=== PATIENT | male | born 1940 | race Caucasian/White ===

== ENCOUNTER → 2020-05-20 | Outpatient (BNVA) | payer MEDICARE, OTHER, SELFPAY | PROVIDERS: PCP Internal Medicine; Visit Provider Surgery | DX: Z48.815 Encounter for surgical aftercare following surgery on the digestive system (principal); Z87.19 Personal history of other diseases of the digestive system | CPT/HCPCS: 99212 ==

== ENCOUNTER 2020-07-09 13:59 | Outpatient (REF) | payer MEDICARE, OTHER, SELFPAY | END 2020-07-09 14:00 | disposition home or self-care (01) | LOC: HO.LAB 13:59 | PROVIDERS: Visit Provider Internal Medicine | DX: Z20.828 Contact with and (suspected) exposure to other viral communicable diseases (principal) | CPT/HCPCS: C9803; U0003 ==

== ENCOUNTER → 2021-03-09 08:22 | Outpatient (REF) | payer MEDICARE, OTHER, SELFPAY ==
--- NOTE | 2021-03-09 08:30 | CA_ITS ---
Transthoracic Echocardiogram Patient (Last, First, Middle): Jayant Griffiths R Gender: Male Date of : 1940 Age: 81 Procedure Date: 03/09/2021 Procedure Type: Transthoracic Echocardiogram Location: OP Height: 167.64 cm Weight: 79.38 kg BSA: 1.89 m2 Heart Rate: bpm BP: 128 / 80 mmHg Supervisor Feed House: Referring MD: Ayaan Romero MD Symptoms: I35.0 AVS, I10 HTN I44.7 LBBB Study Quality: Fair ECG Rhythm: Sinus Conclusions: - The left ventricular systolic function is normal. The visually estimated ejection fraction is between 60-65%. - There is mild to moderate aortic valve stenosis. Findings Left Ventricle Normal left ventricular cavity size. There is mildly increased left ventricular wall thickness. The left ventricular systolic function is normal. The visually estimated ejection fraction is between 60-65%. There is no evidence of regional wall motion abnormalities. E/E prime ratio is >15, consistent with elevated filling pressures. Evidence suggests grade I (mild) diastolic dysfunction. Right Ventricle Mildly increased right ventricular cavity size. There is normal right ventricular systolic function. Atria Both atria are normal in size. Aortic Valve There is moderate calcification of the aortic valve. There is mild to moderate aortic valve stenosis. The peak aortic velocity is 2.19 m/s with a calculated peak gradient of 19 mmHg. The mean gradient is 11 mmHg. The aortic valve area is 1.27 cm2. There is no aortic valve regurgitation. Mitral Valve The mitral valve appears normal. There is trace mitral valve regurgitation. There is no mitral valve stenosis. Pulmonic Valve The pulmonic valve was not well visualized. Tricuspid Valve Normal tricuspid valve structure. There is trace tricuspid valve regurgitation. The pulmonary artery systolic pressure is normal. Great Vessels The asc aorta is normal in size. Venous The inferior vena cava is normal in size and collapses greater than 50% with inspiration. Pericardium/Pleural There is no evidence of pericardial effusion. Prior Study Comparison No significant change compared to prior study dated: 05/15/2019. Measurements 2D Linear Measurements IVSd: 1.32 0.6-0.9/0.6-1.0 cm LVIDd: 3.50 3.9-5.3/4.2-5.9 cm LVIDd Index: 1.85 2.4-3.2/2.2-3.1 cm/m2 LVIDs: 2.12 2.0-3.6 cm LVPWd: 1.30 0.7-1.1 cm Ao Root: 3.60 2.1-3.5 cm LA Diam: 3.10 2.7-3.8/3.0-4.0 cm LAIDs Index: 1.64 1.5-2.3 cm/m2 LV Mass: 193.80 67-162/88-224 g LV Mass Index: 102.54 43-95/49-115 g/m2 LVOT Diam: 2.10 3.0+(-)1.3 cm 2D Systolic Function EF 4C: 63.00 >55% EF 2C: 60.60 >55% EF BiP: 59.30 >55% Mitral Valve MV Pk E: 0.74 MV PK A: 1.23 MV Decel Time: 214.00 E/A: 0.60 E'Lateral: 6.64 E'Medial: 3.70 E/E' Med: 20.00 E/E' Lat: 11.20 PHT: 63.00 MVA PHT: 3.49 Decel [place]: 3.47 Aortic Valve AoV Pk Brendon: 2.19 AoV Mn Brendon: 1.60 AoV VTI: 0.44 AoV Pk Grad: 19.00 Aov Mn Grad: 11.00 ANDREW Cont.VTI: 1.27 LVOT LVOT Pk Brendon: 0.90 LVOT Mn Brendon: 0.57 LVOT VTI: 0.16 LVOT Pk Grad: 3.00 LVOT Mn Grad: 2.00 LVOT Diam: 2.10 LVOT Area: 3.46 Diastolic Function MV Pk E: 0.74 MV Pk A: 1.23 E/A: 0.60 E'Medial: 3.70 E/E' Med: 20.00 E' Laterial: 6.64 E/E' Lat: 11.20 Right Ventricle TAPSE (mm): 25.00 TVS' Brendon: 14.00 Tricuspid Valve TR Pk Brendon: 2.36 TR Pk Grad: 22.00 RA Press: 3.00 RVSP: 25.00 Great Vessels Aorta Ao Root-2D: 3.60 2.0-3.7 cm Ao Asc: 3.20 2.1-3.4 cm Pulmonary Valve PV Pk Brendon: 1.21 Peak PV Grad: 6.00 Updated in Other Vendor System with Status of Final Mxa Carrasquillo MD electronically signed on 03/10/2021 12:03:10 PM with status of Final
== END ==
LOC: HO.CARD 08:22
PROVIDERS: PCP Internal Medicine; Visit Provider Internal Medicine Cardiovascular Disease
DX: I35.0 Nonrheumatic aortic (valve) stenosis (principal); I10 Essential (primary) hypertension; I44.7 Left bundle-branch block, unspecified
CPT/HCPCS: 93306

== ENCOUNTER → 2021-04-27 13:28 | Outpatient (BNVA) | payer MEDICARE, OTHER, SELFPAY | PROVIDERS: PCP Internal Medicine; Referring Provider Internal Medicine; Visit Provider Internal Medicine Cardiovascular Disease | DX: I35.0 Nonrheumatic aortic (valve) stenosis (principal); I44.7 Left bundle-branch block, unspecified | CPT/HCPCS: 93005; 99212 ==

== ENCOUNTER 2021-05-14 06:56 | Outpatient (REF) | payer MEDICARE, OTHER, SELFPAY ==
[2021-05-14 11:26] LABS: MANUAL DIFF FLAG NO
[2021-05-14 11:34] LABS: Basophils Absolute Auto 0.1 X10*3/uL (0.0-0.2); Basophils Percent Auto 0.9 % (0-2); Eosinophils Absolute Auto 0.4 X10*3/uL (0.0-0.4); Eosinophils Percent Auto 3.7 % (0-4); Hematocrit 47.6 % (42-52); Hemoglobin 15.7 g/dl (14.0-18.0); Imm Gran Abs Auto 0.04 X10*3/uL (0.00-0.03); Imm Gran Pct Auto 0.4 % (0.0-0.4); Lymphocytes Absolute Auto 1.5 X10*3/uL (1.2-4.9); Lymphocytes Percent Auto 15.5 % (20-40); Mean Corpuscular Hemoglobin 30.7 pg (27.0-33.0); Mean Corpuscular Volume 93.2 fL (80-98); Mean Platelet Volume 10.6 fL (9.4-12.4); Monocytes Absolute Auto 0.8 X10*3/uL (0.1-1.2); Monocytes Percent Auto 8.2 % (2-11); Neutrophils Absolute Auto 6.7 X10*3/uL (2.0-8.3); Neutrophils Percent Auto 71.3 % (45-73); Platelet Count 197 X10*3/uL (160-400); Red Blood Count 5.11 X10*6/uL (4.60-5.80); Red Cell Distribution Width 14.6 % (11.0-16.0); White Blood Count 9.4 X10*3/uL (4.8-10.8)
[2021-05-14 12:02] LABS: Alanine Aminotransferase 18 U/L (0-40); Albumin Level 4.3 g/dL (3.5-5.0); Alkaline Phosphatase 57 U/L (39-117); Anion Gap 14 (12-20); Aspartate Amino Transferase 16 U/L (5-37); Blood Urea Nitrogen 15 mg/dL (9-16); Calcium 9.2 mg/dL (8.4-10.2); Carbon Dioxide 26 mmol/L (22-29); Chloride 105 mmol/L (96-108); Cholesterol 146 mg/dL; Estimated Glomerular Filt Rate > 60; Glucose Random 108 mg/dL (60-115); HDL Cholesterol 55 mg/dL; LDL Cholesterol Calculated 78 mg/dl; Potassium 4.5 mmol/L (3.3-5.1); Sodium 140 mmol/L (135-145); Total Protein 7.2 g/dL (6.5-8.0); Triglycerides 67 mg/dL
[2021-05-14 12:07] LABS: Free T4 (Free Thyroxine) 1.05 ng/dL (0.71-1.85); Thyroid Stimulating Hormone 1.49 uIU/mL (0.32-4.0)
[2021-05-14 12:25] LABS: Folate 7.4 ng/mL (> or = 4.0); Vitamin B12 764 pg/mL (200-900)
== END 2021-05-14 06:57 | disposition home or self-care (01) ==
LOC: HO.HMGCLDS 06:56
PROVIDERS: PCP Internal Medicine; Visit Provider Internal Medicine
DX: E78.00 Pure hypercholesterolemia, unspecified (principal); I10 Essential (primary) hypertension
CPT/HCPCS: 36415; 80053; 80061; 82607; 82746; 84439; 84443; 85025

== ENCOUNTER 2021-12-02 10:26 | Outpatient (REF) | payer MEDICARE, OTHER, SELFPAY ==
--- NOTE | ~2021-12-02 | US_ITS ---
EXAMINATION: US RETROPERITONEAL LIMITED (RENAL ONLY) CLINICAL INFORMATION: Calculus of kidney. COMPARISON: CT abdomen and pelvis 05/22/2019. X-ray KUB 11/11/2016 and 06/11/2013. TECHNIQUE: Real-time imaging of the kidneys. FINDINGS: RIGHT KIDNEY: 11.8 x 5.2 x 5.6 cm (SAG x AP x TRV). The kidney is normal in size, contour, and echogenicity. Renal cortical thickness is normal. There are echogenic small calculi in the midpole measuring 0.24 x 0.34 x 0.25 cm and lower pole measuring 0.25 x 0.26 x 0.31 cm. There is no hydronephrosis. There is an anechoic cyst in the midpole measuring 1.4 x 1.4 x 1.5 cm. LEFT KIDNEY: 11.1 x 5.0 x 4.6 cm (SAG x AP x TRV). The kidney is normal in size, contour, and echogenicity. Renal cortical thickness is normal. There are echogenic stones in the lower pole measuring 0.43 x 0.31 x 0.30 cm and 0.25 x 0.21 x 0.31 cm. No focal parenchymal lesions or hydronephrosis. US/US renal BI IMPRESSION: Bilateral nonobstructive echogenic small calculi. There is no hydronephrosis. Small midpole cyst right kidney.
== END 2021-12-02 10:27 | disposition home or self-care (01) ==
LOC: HO.HMGCX 10:26
PROVIDERS: Visit Provider Internal Medicine
DX: N20.0 Calculus of kidney (principal)
CPT/HCPCS: 76775

== ENCOUNTER 2022-02-24 08:46 | Outpatient (REF) | payer MEDICARE, OTHER, SELFPAY ==
--- NOTE | ~2022-02-24 | XR_ITS ---
EXAMINATION: XR SHOULDER, RIGHT CLINICAL INFORMATION: M25.519 - Pain shoulder COMPARISON: None TECHNIQUE: Right shoulder is imaged in 4 views. FINDINGS: No fracture, dislocation, or destructive process. The acromioclavicular alignment is normal. There are no visible rotator cuff calcifications. There are mild degenerative changes acromioclavicular joint. The glenohumeral joint is unremarkable. XR/XR shoulder RT min 2V IMPRESSION: -Mild degenerative changes acromioclavicular joint. -No visible rotator cuff calcifications.
== END 2022-02-24 08:47 | disposition home or self-care (01) ==
LOC: HO.HOSX 08:46
PROVIDERS: Visit Provider Physician Assistant
DX: M75.101 Unspecified rotator cuff tear or rupture of right shoulder, not specified as traumatic (principal)
CPT/HCPCS: 20610; 73030; 99202; J1040

== ENCOUNTER → 2022-04-19 08:18 | Outpatient (REF) | payer MEDICARE, OTHER, SELFPAY ==
--- NOTE | 2022-04-19 08:21 | CA_ITS ---
Transthoracic Echocardiogram Patient (Last, First, Middle): Jayant Griffiths R Gender: Male Date of : 1940 Age: 82 Procedure Date: 04/19/2022 Procedure Type: Transthoracic Echocardiogram Location: OP Height: 167.64 cm Weight: 81.65 kg BSA: 1.91 m2 Heart Rate: 69 bpm BP: 120 / 80 mmHg Progress Developer: ALAM Referring MD: Ayaan Romero MD Dianeticist: Ayaan Romero MD Symptoms: I35.0 - Nonrheumatic aortic (valve) stenosis Study Quality: Adequate w contrast ECG Rhythm: Sinus Conclusions: - 1. Normal LV systolic function with mild LVH with impaired relaxation filling pattern 2. Pogp-rd-hrjwmaza aortic stenosis 3. No gross pericardial effusion Findings Procedure Information Contrast agent, definity, is being given per protocol without apparent complications. Left Ventricle Normal left ventricular size and systolic function. There is mildly increased left ventricular wall thickness. The visually estimated ejection fraction is between 60-65%. Spectral Doppler is indicative of an impaired relaxation filling pattern. E/E prime ratio is between 8 and 15 consistent with indeterminate filling pressures. Right Ventricle Normal right ventricular cavity size and systolic function. Atria Both atria are normal in size. There is no evidence of interatrial shunt. Aortic Valve There is moderate calcification of the aortic valve. There is mild thickening of the aortic valve. There is mild to moderate aortic valve stenosis. The peak aortic gradient is 30 mmHg.The mean gradient is 15 mmHg. The aortic valve area is 1.54 cm2. There is no aortic valve regurgitation. Mitral Valve There is mild anterior and posterior mitral leaflet thickening. There is mild mitral annular calcification. There is trace mitral valve regurgitation. There is no mitral valve stenosis. Pulmonic Valve The pulmonic valve is likely normal. Tricuspid Valve Normal tricuspid valve structure. Tricuspid regurgitation envelope is inadequate for calculation of right ventricular systolic pressure. Normal right atrial pressure. Great Vessels All visible segments of the aorta are normal in size. The pulmonary artery was not well visualized. Venous The inferior vena cava is normal in size and collapses greater than 50% with inspiration. Pericardium/Pleural There is no evidence of pericardial effusion. Prior Study Comparison No significant change compared to prior study dated: 03/09/2021. Measurements 2D Linear Measurements IVSd: 1.51 0.6-0.9/0.6-1.0 cm LVIDd: 4.44 3.9-5.3/4.2-5.9 cm LVIDd Index: 2.32 2.4-3.2/2.2-3.1 cm/m2 LVIDs: 2.79 2.0-3.6 cm LVPWd: 0.87 0.7-1.1 cm LA Diam: 3.50 2.7-3.8/3.0-4.0 cm LAIDs Index: 1.83 1.5-2.3 cm/m2 LV Mass: 238.58 67-162/88-224 g LV Mass Index: 124.91 43-95/49-115 g/m2 LVOT Diam: 2.10 3.0+(-)1.3 cm 2D Systolic Function EF 4C: 61.00 >55% EF 2C: 65.40 >55% EF BiP: 64.30 >55% Mitral Valve MV Pk E: 0.78 MV PK A: 1.26 MV Decel Time: 283.00 E/A: 0.60 E'Lateral: 5.55 E'Medial: 6.20 E/E' Med: 12.60 E/E' Lat: 14.10 PHT: 83.00 MVA PHT: 2.65 Decel [place]: 2.75 Aortic Valve AoV Pk Brendon: 2.73 AoV Mn Brendon: 1.78 AoV VTI: 0.50 AoV Pk Grad: 30.00 Aov Mn Grad: 15.00 ANDREW Cont.VTI: 1.54 LVOT LVOT Pk Brendon: 1.19 LVOT Mn Brendon: 0.84 LVOT VTI: 0.22 LVOT Pk Grad: 6.00 LVOT Mn Grad: 3.00 LVOT Diam: 2.10 LVOT Area: 3.46 Diastolic Function MV Pk E: 0.78 MV Pk A: 1.26 E/A: 0.60 E'Medial: 6.20 E/E' Med: 12.60 E' Laterial: 5.55 E/E' Lat: 14.10 Right Ventricle TAPSE (mm): 20.40 TVS' Brendon: 13.20 Tricuspid Valve RA Press: 3.00 Great Vessels Aorta Sinus of Valsalva: 3.50 2.0-3.5 cm Ao Asc: 3.30 2.1-3.4 cm Pulmonary Valve PV Pk Brendon: 1.16 Peak PV Grad: 5.00 Updated in Other Vendor System with Status of Final Ayaan Romero MD electronically signed on 04/19/2022 11:53:57 AM with status of Final
== END ==
LOC: HO.CARD 08:18
PROVIDERS: PCP Internal Medicine; Visit Provider Internal Medicine Cardiovascular Disease
DX: I35.0 Nonrheumatic aortic (valve) stenosis (principal)
CPT/HCPCS: 93306; Q9957

== ENCOUNTER → 2022-04-28 08:23 | Outpatient (BNVA) | payer MEDICARE, OTHER, SELFPAY | PROVIDERS: PCP Internal Medicine; Referring Provider Internal Medicine; Visit Provider Internal Medicine Cardiovascular Disease | DX: I35.0 Nonrheumatic aortic (valve) stenosis (principal); I44.7 Left bundle-branch block, unspecified | CPT/HCPCS: 93005; 99212 ==

== ENCOUNTER 2022-05-14 07:39 | Outpatient (REF) | payer MEDICARE, OTHER, SELFPAY ==
[2022-05-14 11:09] LABS: MANUAL DIFF FLAG NO
[2022-05-14 11:15] LABS: Basophils Absolute Auto 0.1 X10*3/uL (0.0-0.2); Eosinophils Absolute Auto 0.3 X10*3/uL (0.0-0.4); Eosinophils Percent Auto 3.7 % (0-4); Hematocrit 47.2 % (42.0-52.0); Hemoglobin 16.2 g/dl (14.0-18.0); Imm Gran Abs Auto 0.04 X10*3/uL (0.00-0.03); Imm Gran Pct Auto 0.4 % (0.0-0.4); Lymphocytes Absolute Auto 1.4 X10*3/uL (1.2-4.9); Lymphocytes Percent Auto 15.3 % (20-40); Mean Corpuscular HGB Conc 34.3 g/dl (31.0-36.0); Mean Corpuscular Hemoglobin 32.1 pg (27.0-33.0); Mean Corpuscular Volume 93.5 fL (80.0-98.0); Mean Platelet Volume 10.9 fL (9.4-12.4); Monocytes Absolute Auto 0.8 X10*3/uL (0.1-1.2); Monocytes Percent Auto 8.4 % (2-11); Neutrophils Absolute Auto 6.6 x10*3/uL (2.0-8.3); Neutrophils Percent Auto 71.2 % (45-73); Platelet Count 194 X10*3/uL (160-400); Red Blood Count 5.05 X10*6/uL (4.60-5.80); Red Cell Distribution Width 13.5 % (11.0-16.0); White Blood Count 9.2 X10*3/uL (4.8-10.8)
[2022-05-14 11:34] LABS: Estimated Average Glucose 120 mg/dL; Hemoglobin A1c % 5.8 %
[2022-05-14 11:52] LABS: Alanine Aminotransferase 19 U/L (0-40); Albumin Level 4.4 g/dL (3.5-5.0); Alkaline Phosphatase 53 U/L (39-117); Anion Gap 18 (12-20); Aspartate Amino Transferase 21 U/L (5-37); Bilirubin Total 0.8 mg/dL (0.0-1.0); Blood Urea Nitrogen 22 mg/dL (9-16); Calcium 9.2 mg/dL (8.4-10.2); Carbon Dioxide 21 mmol/L (22-29); Chloride 105 mmol/L (96-108); Cholesterol 152 mg/dL; Estimated Glomerular Filt Rate > 60; Free T4 (Free Thyroxine) 1.12 ng/dL (0.71-1.85); Glucose Random 114 mg/dL (60-115); HDL Cholesterol 51 mg/dL; LDL Cholesterol Calculated 87 mg/dl; Potassium 4.5 mmol/L (3.3-5.1); Sodium 139 mmol/L (135-145); Thyroid Stimulating Hormone 1.14 uIU/mL (0.32-4.0); Total Protein 7.5 g/dL (6.5-8.0); Triglycerides 74 mg/dL
[2022-05-14 12:19] LABS: Folate 12.6 ng/mL (> or = 4.0); Vitamin B12 632 pg/mL (200-900)
== END 2022-05-14 07:40 | disposition home or self-care (01) ==
LOC: HO.HMGCLDS 07:39
PROVIDERS: PCP Internal Medicine; Visit Provider Internal Medicine
DX: I10 Essential (primary) hypertension (principal); E78.00 Pure hypercholesterolemia, unspecified; R73.02 Impaired glucose tolerance (oral)
CPT/HCPCS: 36415; 80053; 80061; 82607; 82746; 83036; 84439; 84443; 85025

== ENCOUNTER 2023-01-11 06:41 | Outpatient (REF) | payer MEDICARE, OTHER, SELFPAY ==
[2023-01-11 11:11] LABS: MANUAL DIFF FLAG NO
[2023-01-11 11:22] LABS: Basophils Absolute Auto 0.1 X10*3/uL (0.0-0.2); Eosinophils Absolute Auto 0.4 X10*3/uL (0.0-0.4); Hematocrit 47.4 % (42.0-52.0); Hemoglobin 16.3 g/dl (14.0-18.0); Imm Gran Abs Auto 0.12 X10*3/uL (0.00-0.03); Imm Gran Pct Auto 1.3 % (0.0-0.4); Lymphocytes Absolute Auto 1.4 X10*3/uL (1.2-4.9); Mean Corpuscular HGB Conc 34.4 g/dl (31.0-36.0); Mean Corpuscular Hemoglobin 32.5 pg (27.0-33.0); Mean Corpuscular Volume 94.6 fL (80.0-98.0); Mean Platelet Volume 10.8 fL (9.4-12.4); Monocytes Absolute Auto 0.9 X10*3/uL (0.1-1.2); Monocytes Percent Auto 9.4 % (2-11); Neutrophils Absolute Auto 6.5 x10*3/uL (2.0-8.3); Neutrophils Percent Auto 69.3 % (45-73); Platelet Count 184 X10*3/uL (160-400); Red Blood Count 5.01 X10*6/uL (4.60-5.80); Red Cell Distribution Width 14.3 % (11.0-16.0); White Blood Count 9.3 X10*3/uL (4.8-10.8)
[2023-01-11 11:46] LABS: Estimated Average Glucose 114 mg/dL; Hemoglobin A1c % 5.6 %
[2023-01-11 11:57] LABS: Alanine Aminotransferase 22 U/L (0-40); Albumin Level 4.3 g/dL (3.5-5.0); Alkaline Phosphatase 51 U/L (39-117); Anion Gap 14 (12-20); Aspartate Amino Transferase 17 U/L (5-37); Bilirubin Total 1.2 mg/dL (0.0-1.0); Blood Urea Nitrogen 21 mg/dL (9-16); Calcium 9.4 mg/dL (8.4-10.2); Carbon Dioxide 23 mmol/L (22-29); Chloride 107 mmol/L (96-108); Cholesterol 163 mg/dL; Estimated Glomerular Filt Rate > 60; Glucose Random 109 mg/dL (60-115); HDL Cholesterol 53 mg/dL; LDL Cholesterol Calculated 93 mg/dl; Potassium 4.1 mmol/L (3.3-5.1); Sodium 140 mmol/L (135-145); Total Protein 7.2 g/dL (6.5-8.0); Triglycerides 88 mg/dL
[2023-01-11 12:13] LABS: Folate 8.8 ng/mL (> or = 4.0); Free T4 (Free Thyroxine) 0.99 ng/dL (0.71-1.85); Thyroid Stimulating Hormone 1.65 uIU/mL (0.32-4.0); Vitamin B12 1070 pg/mL (200-900)
== END 2023-01-11 06:42 | disposition home or self-care (01) ==
LOC: HO.HMGCLDS 06:41
PROVIDERS: PCP Internal Medicine; Visit Provider Internal Medicine
DX: I10 Essential (primary) hypertension (principal); E78.00 Pure hypercholesterolemia, unspecified; R73.02 Impaired glucose tolerance (oral)
CPT/HCPCS: 36415; 80053; 80061; 82607; 82746; 83036; 84439; 84443; 85025

== ENCOUNTER → 2023-04-24 08:01 | Outpatient (REF) | payer MEDICARE, OTHER, SELFPAY ==
--- NOTE | 2023-04-24 08:04 | CA_ITS ---
Transthoracic Echocardiogram Patient (Last, First, Middle): Jayant Griffiths R Gender: Male Date of : 1940 Age: 83 Procedure Date: 04/24/2023 Procedure Type: Transthoracic Echocardiogram Location: OP Height: 167.64 cm Weight: 81.65 kg BSA: 1.91 m2 Heart Rate: bpm BP: 130 / 65 mmHg Informatics Physician: Referring MD: Ayaan Romero MD Symptoms: I35.0 - Nonrheumatic aortic (valve) stenosis Study Quality: Fair ECG Rhythm: Sinus Conclusions: - The left ventricular systolic function is normal. The calculated ejection fraction is 61% by biplane method. - There is mild to moderate aortic valve stenosis. Findings Left Ventricle Normal left ventricular cavity size. The left ventricular systolic function is normal. The calculated ejection fraction is 61% by biplane method. There is no evidence of regional wall motion abnormalities. Evidence suggests grade I (mild) diastolic dysfunction. There is mild septal asymmetric hypertrophy. Right Ventricle Mildly increased right ventricular cavity size. There is normal right ventricular systolic function. Atria The left atrium is likely dilated. The right atrium is normal in size. Aortic Valve The aortic valve was not well visualized. There is moderate calcification of the aortic valve. There is mild to moderate aortic valve stenosis. The peak aortic velocity is 2.81 m/s with a calculated peak gradient of 32 mmHg. The mean gradient is 17 mmHg. The aortic valve area is 1.47 cm2. There is no aortic valve regurgitation. Mitral Valve There is mild mitral annular calcification. There is no mitral valve regurgitation. There is no mitral valve stenosis. Pulmonic Valve The pulmonic valve is likely normal. Tricuspid Valve Normal tricuspid valve structure. There is trace tricuspid valve regurgitation. There is no evidence of pulmonary hypertension. Great Vessels The asc aorta is normal in size. Venous The inferior vena cava is normal in size and collapses greater than 50% with inspiration. Pericardium/Pleural There is no evidence of pericardial effusion. Prior Study Comparison No significant change compared to prior study dated: 04/19/2022. Measurements 2D Linear Measurements IVSd: 1.15 0.6-0.9/0.6-1.0 cm LVIDd: 4.73 3.9-5.3/4.2-5.9 cm LVIDd Index: 2.48 2.4-3.2/2.2-3.1 cm/m2 LVIDs: 3.35 2.0-3.6 cm LVPWd: 0.99 0.7-1.1 cm Ao Root: 3.50 2.1-3.5 cm LA Diam: 3.10 2.7-3.8/3.0-4.0 cm LAIDs Index: 1.62 1.5-2.3 cm/m2 LV Mass: 226.71 67-162/88-224 g LV Mass Index: 118.70 43-95/49-115 g/m2 LVOT Diam: 2.10 3.0+(-)1.3 cm 2D Systolic Function EF 4C: 62.10 >55% EF 2C: 63.30 >55% EF BiP: 60.60 >55% Mitral Valve MV Pk E: 0.63 MV PK A: 1.04 MV Decel Time: 190.00 E/A: 0.60 E'Lateral: 6.31 E'Medial: 5.00 E/E' Med: 12.50 E/E' Lat: 9.90 PHT: 56.00 MVA PHT: 3.93 Decel [place]: 3.29 Aortic Valve AoV Pk Brendon: 2.81 AoV Mn Brendon: 1.90 AoV VTI: 0.63 AoV Pk Grad: 32.00 Aov Mn Grad: 17.00 ANDREW Cont.VTI: 1.47 LVOT LVOT Pk Brendon: 1.08 LVOT Mn Brendon: 0.71 LVOT VTI: 0.27 LVOT Pk Grad: 5.00 LVOT Mn Grad: 3.00 LVOT Diam: 2.10 LVOT Area: 3.46 Diastolic Function MV Pk E: 0.63 MV Pk A: 1.04 E/A: 0.60 E'Medial: 5.00 E/E' Med: 12.50 E' Laterial: 6.31 E/E' Lat: 9.90 Right Ventricle TAPSE (mm): 29.00 TVS' Brendon: 15.00 Tricuspid Valve TR Pk Brendon: 2.04 TR Pk Grad: 17.00 RA Press: 3.00 RVSP: 20.00 Great Vessels Aorta Ao Root-2D: 3.50 2.0-3.7 cm Ao Asc: 3.50 2.1-3.4 cm Pulmonary Valve PV Pk Brendon: 1.35 Peak PV Grad: 7.00 Updated in Other Vendor System with Status of Final Max Carrasquillo MD electronically signed on 04/24/2023 11:56:14 AM with status of Final
== END ==
LOC: HO.CARD 08:01
PROVIDERS: PCP Internal Medicine; Visit Provider Internal Medicine Cardiovascular Disease
DX: I35.0 Nonrheumatic aortic (valve) stenosis (principal)
CPT/HCPCS: 93306

== ENCOUNTER → 2023-04-24 08:04 | Outpatient (BNV) | payer MEDICARE, OTHER, SELFPAY | PROVIDERS: PCP Internal Medicine; Visit Provider Internal Medicine | DX: I35.0 Nonrheumatic aortic (valve) stenosis (principal); I34.81 Nonrheumatic mitral (valve) annulus calcification | CPT/HCPCS: 93306 ==

== ENCOUNTER 2023-05-09 08:20 | Outpatient (AMB) | payer MEDICARE, OTHER, SELFPAY ==
--- NOTE | 2023-05-09 08:28 | MHC.OFFVIS ---
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 He has been doing well. He exercises and walks 5 days a week for 45 minutes. He also continues to play golf. He has no exertional symptoms of chest pain or shortness of breath. He occasion still feels skipped heartbeats usually when he is resting at nighttime. No prolonged irregular heartbeat or palpitations. No lightheadedness, syncope. No heart failure symptoms. Recent echocardiogram shows normal LV ejection fraction with [id number] aortic stenosis. He is taking all his medications. [facility] Medical History Left bundle branch block Aortic stenosis Cataracts, bilateral Shingles Erectile dysfunction Left renal stone Osteoarthritis Impaired glucose tolerance Inguinal hernia Cataract Chronic constipation Hyperlipidemia Diverticulosis Hypertension Surgical History History of arthroplasty of left knee History of total right knee replacement History of left inguinal hernia repair Social History Housing: House Alcohol intake: current Alcohol intake frequency: 0-2 drinks per day Patient Tobacco Use Status: Former Tobacco user Tobacco use type: Cigarette Years Smoked: quit 22 years old e-Cigarette/Vaping Use: Never Used service: Yes ([employer]) Current occupational status: retired Cognitive needs: No Hearing needs: No Vision needs: Yes Review of Systems Const Denies chills, Denies fatigue, Denies fever(s), Denies frequent falls, Denies weakness, Denies weight gain and Denies weight loss ENT Denies dizziness Card Denies chest pain, Denies leg edema, Denies lightheadedness, Denies palpitations, Denies dyspnea, Denies dyspnea on exertion, Denies orthopnea and Denies other (loss of consciousness) Resp Denies cough, Denies dyspnea and Denies dyspnea on exertion GI Denies hematochezia and Denies change in stool character Musc Denies abnormal gait, Denies muscle weakness, Denies numbness, Denies radiating pain into limb and Denies tingling Neuro Denies abnormal gait, Denies dizziness, Denies frequent falls, Denies numbness, Denies tingling and Denies weakness Endo Denies fatigue and Denies palpitations Physical Exam Vital Signs: Last Vital Signs Pulse 72 05/09/23 08:29 BP 120/70 05/09/23 08:29 BMI result Body Mass Index 29.5 Const General: cooperative, comfortable, alert, awake and well groomed Nutritional Appearance: overweight Orientation/consciousness: patient oriented x3 Limitations: no limitations Neck Neck: Yes trachea midline, Yes supple and Yes no JVD Resp Effort & Inspection: normal respiratory effort Auscultation: clear to auscultation bilaterally Cardio Jugular venous distension: no JVD Palpation: normal PMI Rate: regular rate Rhythm: abnormal rhythm with ectopic beats Heart sounds: S1 normal heart sound present, S2 normal heart sound present, no click, no gallops and Murmur heart sound present systolic mid, decrescendo, crescendo and soft Peripheral pulses: Peripheral pulses 2+ throughout GI Auscultation: normal bowel sounds Neuro General: patient oriented x3 and no focal motor deficits Extrem General: Yes no clubbing, cyanosis or edema Psych Appearance: grossly normal Office Procedures EKG Details: EKG shows normal sinus rhythm with PACs with left bundle-branch block [id number], Complete Assessment & Plan Assessment & Plan (1) Aortic stenosis: Comment: April 2022 1.54 cm2 Code(s): I35.0 - Nonrheumatic aortic (valve) stenosis Plan: Aortic stenosis which is [id number]. No significant change. No significant change in management plan at this point time. No intervention therapy required. Continue aspirin and statins. Cardinal symptoms of aortic stenosis were discussed. Follow-up echocardiogram next year. Target goal LDL less than 70 mg/dL. Encouraged to maintain heart healthy lifestyle. (2) Left bundle branch block: Code(s): I44.7 - Left bundle-branch block, unspecified Plan: Left bundle-branch block without any symptoms. No interventions required at this point in time. LV ejection fraction is remained stable. (3) PAC (premature atrial contraction): Code(s): I49.1 - Atrial premature depolarization Plan: Patient with occasional symptoms of palpitation mostly at rest. Benign nature of isolated PACs were discussed. No change in therapy. Avoidance of stimulants was discussed. Stress mitigation strategies were discussed. Will follow up in the clinic in 1 year's time, sooner p.r.n.. Thank you for allowing me to partake in his care Orders: Orders CA echo transthoracic complete 50 Weeks I35.0 - Nonrheumatic aortic (valve) stenosis Coding Level of Care Code Est Pt Level 4 (90211) Diagnoses Aortic stenosis I35.0 Left bundle branch block I44.7 PAC (premature atrial contraction) I49.1 CPT Codes EKG - CPT: 28532-[id number], Complete ([id number])
[2023-05-09 08:29] VITALS: BP 120/70; PULSE 72; BMI 29.5
== END 2023-05-09 08:45 | disposition home or self-care (01) ==
PROVIDERS: PCP Internal Medicine; Visit Provider Internal Medicine Cardiovascular Disease
DX: I35.0 Nonrheumatic aortic (valve) stenosis (principal); I44.7 Left bundle-branch block, unspecified; I49.1 Atrial premature depolarization
CPT/HCPCS: 93010; 99214

== ENCOUNTER → 2023-05-09 08:20 | Outpatient (BNVA) | payer MEDICARE, OTHER, SELFPAY | PROVIDERS: PCP Internal Medicine; Visit Provider Internal Medicine Cardiovascular Disease | DX: I35.0 Nonrheumatic aortic (valve) stenosis (principal); I44.7 Left bundle-branch block, unspecified; I49.1 Atrial premature depolarization; Z79.82 Long term (current) use of aspirin; Z79.899 Other long term (current) drug therapy | CPT/HCPCS: 93005; 99212 ==

== ENCOUNTER 2023-07-18 07:38 | Outpatient (REF) | payer MEDICARE, OTHER, SELFPAY ==
[2023-07-18 11:51] LABS: Estimated Average Glucose 120 mg/dL; Hemoglobin A1c % 5.8 % (<6.0)
[2023-07-18 11:53] LABS: Alanine Aminotransferase 19 U/L (0-40); Albumin Level 4.3 g/dL (3.5-5.0); Alkaline Phosphatase 49 U/L (39-117); Anion Gap 12 (12-20); Aspartate Amino Transferase 19 U/L (5-37); Bilirubin Total 0.9 mg/dL (0.0-1.0); Blood Urea Nitrogen 24 mg/dL (9-16); Calcium 9.3 mg/dL (8.4-10.2); Carbon Dioxide 25 mmol/L (22-29); Chloride 107 mmol/L (96-108); Cholesterol 147 mg/dL (<200); Estimated Glomerular Filt Rate > 60; Glucose Random 109 mg/dL (60-115); HDL Cholesterol 51 mg/dL (>40); LDL Cholesterol Calculated 81 mg/dL (<100); Potassium 4.1 mmol/L (3.3-5.1); Sodium 140 mmol/L (135-145); Total Protein 7.5 g/dL (6.5-8.0); Triglycerides 77 mg/dL (<150)
== END 2023-07-18 07:39 | disposition home or self-care (01) ==
LOC: HO.HMGCLDS 07:38
PROVIDERS: PCP Internal Medicine; Visit Provider Internal Medicine
DX: E78.00 Pure hypercholesterolemia, unspecified (principal)
CPT/HCPCS: 36415; 80053; 80061; 83036

== ENCOUNTER 2023-07-21 08:17 | Outpatient (AMB) | payer MEDICARE, OTHER, SELFPAY ==
[2023-07-21 08:42] VITALS: BP 160/70; PULSE 62; O2SAT 98; BMI 29.9
--- NOTE | 2023-07-21 08:42 | MHC.PC.OV ---
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 Accompanied by: Self / Same As Patient Allergies amoxicillin [AMOXICILLIN] Allergy (Unknown, Verified 07/21/23 08:43) SEVERE ITCHING Medication List - Last Reconciled 07/21/23 by Siva Lawrence MD aspirin (Adult Low Dose Aspirin) 81 mg PO DAILY atorvastatin 20 mg PO DAILY cyanocobalamin (vitamin B-12) 1,000 mcg PO DAILY lisinopril 40 mg PO DAILY nifedipine ER 60 mg PO DAILY sildenafil 100 mg PO DAILY PRN Tobacco use date assessed: 11/15/22 Fall risk assessment: No Falls in past year Last assessed Fall Risk: 07/21/23 Dental Screening Dental Screen Date: 07/21/23 Did you have a dental visit in the last 12 months?: Yes Did you have a dental problem in the last 6 months where you did not have access to dental care?: No Was dental information given to patient?: Patient has dentist HPI Hypertension HPI Details 83-year-old overweight male with a history of hypertension hypercholesterolemia impaired glucose tolerance last seen in January 2023. Patient is here for follow-up.. Patient did have COVID and flu vaccine. Patient was seen by Cardiology May 2023 aortic stenosis [id number] no significant change continue with aspirin statins. Echocardiogram April 2023he left ventricular systolic function is normal. The calculated ejection fraction is 61% by biplane method. - There is mild to moderate aortic valve stenosis. [facility] Medical History (Updated 07/21/23 @ 09:07 by Siva Lawrence MD) Left bundle branch block Aortic stenosis Cataracts, bilateral Shingles Erectile dysfunction Left renal stone Osteoarthritis Impaired glucose tolerance Inguinal hernia Cataract Chronic constipation Hyperlipidemia Diverticulosis Hypertension Surgical History History of arthroplasty of left knee History of total right knee replacement History of left inguinal hernia repair Social History Housing: House Alcohol intake: current Alcohol intake frequency: 0-2 drinks per day Patient Tobacco Use Status: Former Tobacco user Tobacco use type: Cigarette Years Smoked: quit 22 years old e-Cigarette/Vaping Use: Never Used service: Yes ([employer]) Current occupational status: retired Cognitive needs: No Hearing needs: No Vision needs: Yes Questionnaire Thrive Questionnaire Date Thrive assessed: 11/15/22 L[address] L[address] Date L[address] - 7 assessed: 11/15/22 Source: Developed by Drs. Dung Joel, Salina Diaz, Richard Bowden and colleagues, with an educational prince from [employer]. Physical exam (Primary Care) Vital Signs: Last Vital Signs Pulse 62 07/21/23 08:42 BP 160/70 H 07/21/23 08:42 Pulse Ox 98 07/21/23 08:42 Oxygen Delivery Method Room Air 07/21/23 08:42 BMI result Body Mass Index 29.9 Tobacco/Smoking Status: Tobacco use Status Tobacco use date assessed 11/15/22 07/21/23 08:43 Patient Tobacco Use Status Former Tobacco user 07/21/23 08:43 Tobacco use type Cigarette 07/21/23 08:43 e-Cigarette/Vaping Use Never Used 07/21/23 08:43 Thrive Assessment: Date of Thrive Assessment Date Thrive assessed 11/15/22 07/21/23 08:43 Const General: alert; No acute distress Eyes Conjunctivae: conjunctivae normal Resp Auscultation: clear to auscultation bilaterally Cardio Rate: regular rate Rhythm: regular rhythm GI Inspection: Yes normal to inspection Extrem General: Yes normal to inspection and No edema Assessment and Plan Assessment & Plan (1) Aortic stenosis: Comment: 05/2019, April 2022 1.54 cm2, April 2023 1.47 Code(s): I35.0 - Nonrheumatic aortic (valve) stenosis Plan: This is continue to be monitored echocardiogram next year mild to moderate aortic stenosis (2) Hypertension: Comment: Echo 55-60% grade 1 diastolic dysfunction mild May 2019 Code(s): I10 - Essential (primary) hypertension Qualifiers: Hypertension type: essential hypertension Qualified Code(s): I10 - Essential (primary) hypertension Plan: Continue with blood pressure medication. Decrease salt intake and exercise patient takes lisinopril 40 mg once a day nifedipine 60 mg once a day. BP here high - advised to monitor at home (3) Hyperlipidemia: Code(s): E78.5 - Hyperlipidemia, unspecified Qualifiers: Hyperlipidemia type: pure hypercholesterolemia Qualified Code(s): E78.00 - Pure hypercholesterolemia, unspecified Plan: Avoid fried foods, chicken skin, eggs, butter margarine, pastries and meat. Be it pork or beef they have a lot of cholesterol LDL goal of less than 70 and triglyceride of less than 150 patient on atorvastatin 20 mg once a day (4) Impaired glucose tolerance: Code(s): R73.02 - Impaired glucose tolerance (oral) Plan: Decrease the amount of carbohydrate intake, pasta, bread, rice and potatoes are all sugar and that is aside from all the sweet stuff, remember that fruits are good but they are Sweet also. (5) Overweight (BMI 25.0-29.9): Code(s): E66.3 - Overweight Plan: Diet and exercise Orders: Orders Hemoglobin A1c 3 Months R73.02 - Impaired glucose tolerance (oral) Comprehensive Met. Panel 3 Months R73.02 - Impaired glucose tolerance (oral) Lipid Panel 3 Months E78.00 - Pure hypercholesterolemia, unspecified Medications: Changed From atorvastatin 20 mg PO DAILY 90 tabs 3RF E78.5 - Hyperlipidemia, unspecified To atorvastatin 40 mg PO DAILY 90 days 90 tabs 1RF E78.5 - Hyperlipidemia, unspecified Coding Level of Care Code Est Pt Level 4 (98659) Diagnoses Aortic stenosis I35.0 Essential hypertension I10 Hypertension type: essential hypertension Pure hypercholesterolemia E78.00 Hyperlipidemia type: pure hypercholesterolemia Impaired glucose tolerance R73.02 Overweight (BMI 25.0-29.9) E66.3
== END 2023-07-21 09:23 | disposition home or self-care (01) ==
PROVIDERS: PCP Internal Medicine; Visit Provider Internal Medicine
DX: I35.0 Nonrheumatic aortic (valve) stenosis (principal); I10 Essential (primary) hypertension; E78.00 Pure hypercholesterolemia, unspecified; R73.02 Impaired glucose tolerance (oral); E66.3 Overweight
CPT/HCPCS: 99214

== ENCOUNTER 2023-11-24 07:22 | Outpatient (REF) | payer MEDICARE, OTHER, SELFPAY ==
[2023-11-24 11:07] LABS: Estimated Average Glucose 120 mg/dL; Hemoglobin A1c % 5.8 % (<6.0)
[2023-11-24 11:22] LABS: Alanine Aminotransferase 31 U/L (0-40); Albumin Level 4.3 g/dL (3.5-5.0); Alkaline Phosphatase 53 U/L (39-117); Anion Gap 14 (12-20); Aspartate Amino Transferase 27 U/L (5-37); Bilirubin Total 0.9 mg/dL (0.0-1.0); Blood Urea Nitrogen 20 mg/dL (9-16); Calcium 9.1 mg/dL (8.4-10.2); Carbon Dioxide 23 mmol/L (22-29); Chloride 108 mmol/L (96-108); Cholesterol 148 mg/dL (<200); Estimated Glomerular Filt Rate > 60; Glucose Random 116 mg/dL (60-115); HDL Cholesterol 47 mg/dL (>40); LDL Cholesterol Calculated 82 mg/dL (<100); Potassium 4.5 mmol/L (3.3-5.1); Sodium 140 mmol/L (135-145); Total Protein 7.5 g/dL (6.5-8.0); Triglycerides 95 mg/dL (<150)
== END 2023-11-24 07:23 | disposition home or self-care (01) ==
LOC: HO.HMGCLDS 07:22
PROVIDERS: PCP Internal Medicine; Visit Provider Internal Medicine
DX: R73.02 Impaired glucose tolerance (oral) (principal); E78.00 Pure hypercholesterolemia, unspecified
CPT/HCPCS: 36415; 80053; 80061; 83036

== ENCOUNTER 2023-11-30 08:19 | Outpatient (AMB) | payer MEDICARE, OTHER, SELFPAY ==
--- NOTE | 2023-11-30 08:32 | A.OFFPC_ITS ---
Vital Signs 11/30/23 08:33 Height 5 ft 6 in Weight 181 lb 0.8 oz BMI 29.2 BP 132/70 Blood Pressure Location Lt brachial Position Sitting Pulse 60 Pulse Source Pulse Oximeter Pulse Oximetry (%) 98 Oxygen Delivery Method Room Air Intake Visit Reasons: , IGT Admissions Supervisor Required: No Allergies amoxicillin [AMOXICILLIN] Allergy (Unknown, Verified 11/30/23 08:35) SEVERE ITCHING Tobacco use date assessed: 11/30/23 Fall risk assessment: No Falls in past year Last assessed Fall Risk: 11/30/23 Dental Screening Dental Screen Date: 11/30/23 Did you have a dental visit in the last 12 months?: No Did you have a dental problem in the last 6 months where you did not have access to dental care?: No HPI , IGT HPI Details 83-year-old overweight male with a histo ry of aortic stenosis hypertension hypercholesterolemia impaired glucose tolerance coming in for f ollow-up last seen in July 2023. Review of the notes has seen Dermatology last week for evaluation of skin lesions [facility] Medical History (Updated 11/30/23 @ 08:41 by Siva Lawrence MD) Diverticulosis Cataract Inguinal hernia Otitis externa Rt flank pain Hematoma and contusion Bicipital tendinitis of right shoulder Painful arc syndrome of right shoulder Obesity (BMI 30.0-34.9) Left bundle branch block Aortic stenosis Cataracts, bilateral Shingles Erectile dysfunction Left renal stone Osteoarthritis Impaired glucose tolerance Chronic constipation Hyperlipidemia Hypertension Surgical History History of arthroplasty of left knee History of total right knee replacement History of left inguinal hernia repair Social History Housing: House Alcohol intake: current Alcohol intake frequency: 0-2 drinks per day Patient Tobacco Use Status: Former Tobacco user Tobacco use type: Cigarette Years Smoked: quit 22 years old e-Cigarette/Vaping Use: Never Used service: Yes ([employer]) Current occupational status: retired Cognitive needs: No Hearing needs: No Vision needs: Yes Questionnaire PHQ-9 Over the last 2 weeks, how often have you been bothered by any of the following problems? 1. Little interest or pleasure in doing things: not at all 2. Feeling down, depressed, or hopeless: not at all 3. Trouble falling or staying asleep, or sleeping too much: not at all 4. Feeling tired or having little energy: not at all 5. Poor appetite or overeating: not at all 6. Feeling bad about yourself - or that you are a failure or have let yourself or your family down: not at all 7. Trouble concentrating on things, such as reading the newspaper or watching television: not at all 8. Moving or speaking so slowly that other people could have noticed. Or the opposite - being so fidgety or restless that you have been moving around a lot more than usual: not at all 9. Thoughts that you would be better off or of hurting yourself in some way: not at all Total score: 0 Depression Screening Interpretation: Negative Depression Screening Done: Yes 83136 - PHQ-9 Billing: Yes Source: Developed by Drs. Dung Joel, Salina Diaz, Richard Bowden and colleagues, with an educational prince from [employer]. Thrive Questionnaire Date Thrive assessed: 11/30/23 AUDIT C Alcohol Use Questionnaire (AUDIT-C) 1. How often do you have a drink containing alcohol?: 4 or more times a week 2. How many drinks containing alcohol do you have on a typical day when you are drinking?: 1 or 2 3. How often do you have six or more drinks on one occasion?: Never Total Score: 4 LANE-[address] L[address] L[address] - 7 assessed: 11/30/23 Feeling nervous, anxious, or on edge: 0 = Not at all Not being able to stop or control worryin = Not at all Worrying too much about different things: 0 = Not at all Trouble relaxin = Not at all Being so restless that it is hard to sit still: 0 = Not at all Becoming easily annoyed or irritable: 0 = Not at all Feeling afraid as if something awful might happen: 0 = Not at all Total LANE-7 score (0-4 normal; 5-9 mild; 10-14 moderate; 15-21 severe): 0 Source: Developed by Drs. Dung Joel, Salina Diaz, Richard Bowden and colleagues, with an educational prince from [employer]. LANE-[address] L[address]-7 Assessment Tool: LANE-7 Assessment 44022 Physical exam (Primary Care) Vital Signs: Last Vital Signs Pulse 60 11/30/23 08:33 BP 132/70 11/30/23 08:33 Pulse Ox 98 11/30/23 08:33 Oxygen Delivery Method Room Air 11/30/23 08:33 BMI result Body Mass Index 29.2 Tobacco/Smoking Status: Tobacco use Status Tobacco use date assessed 11/30/23 11/30/23 08:36 Patient Tobacco Use Status Former Tobacco user 11/30/23 08:36 Tobacco use type Cigarette 11/30/23 08:36 e-Cigarette/Vaping Use Never Used 11/30/23 08:36 PHQ-9: PHQ-9 Score PHQ-9: Total score 0 11/30/23 08:39 Depression Screening Interpretation: Negative Thrive Assessment: Date of Thrive Assessment Date Thrive assessed 11/30/23 11/30/23 08:36 Const General: alert; No acute distress Eyes Conjunctivae: conjunctivae normal Resp Auscultation: clear to auscultation bilaterally Cardio Rate: regular rate Rhythm: regular rhythm GI Inspection: Yes normal to inspection Extrem General: Yes normal to inspection and No edema Assessment and Plan Assessment & Plan (1) Overweight (BMI 25.0-29.9): Code(s): E66.3 - Overweight Plan: Diet and exercise (2) Aortic stenosis: Comment: 05/2019, April 2022 1.54 cm2, April 2023 1.47 Code(s): I35.0 - Nonrheumatic aortic (valve) stenosis Plan: April 2023 last echocardiogram 1.47. Will continue to follow-up on a yearly basis. (3) Impaired glucose tolerance: Code(s): R73.02 - Impaired glucose tolerance (oral) Plan: Decrease the amount of carbohydrate intake, pasta, bread, rice and potatoes are all sugar and that is aside from all the sweet stuff, remember that fruits are good but they are Sweet also. Stable (4) Hyperlipidemia: Code(s): E78.5 - Hyperlipidemia, unspecified Qualifiers: Hyperlipidemia type: pure hypercholesterolemia Qualified Code(s): E78.00 - Pure hypercholesterolemia, unspecified Plan: Avoid fried foods, chicken skin, eggs, butter margarine, pastries and meat. Be it pork or beef they have a lot of cholesterol presently on atorvastatin 40 mg once a day (5) Hypertension: Comment: Echo 55-60% grade 1 diastolic dysfunction mild May 2019 Code(s): I10 - Essential (primary) hypertension Qualifiers: Hypertension type: essential hypertension Qualified Code(s): I10 - Essential (primary) hypertension Plan: Continue with blood pressure medication. Decrease salt intake and exercise presently on lisinopril 40 mg once a day nifedipine 90 mg once a day Medications: Refilled atorvastatin 40 mg PO DAILY 90 days 90 tabs 1RF E78.5 - Hyperlipidemia, unspecified nifedipine ER 90 mg PO DAILY 90 days 90 tabs 1RF I10 - Essential (primary) hypertension lisinopril 40 mg PO DAILY 90 tabs 3RF I10 - Essential (primary) hypertension Coding Level of Care Code Est Pt Level 4 (88149) Diagnoses Overweight (BMI 25.0-29.9) E66.3 Aortic stenosis I35.0 Impaired glucose tolerance R73.02 Pure hypercholesterolemia E78.00 Hyperlipidemia type: pure hypercholesterolemia Essential hypertension I10 Hypertension type: essential hypertension Additional Codes LANE-7 Assessment Billing - LANE-7 Assessment Tool: LANE-7 Assessment 36302 ([id number])
[2023-11-30 08:33] VITALS: BP 132/70; PULSE 60; O2SAT 98; BMI 29.2
== END 2023-11-30 08:59 | disposition home or self-care (01) ==
PROVIDERS: PCP Internal Medicine; Visit Provider Internal Medicine
DX: E66.3 Overweight (principal); I35.0 Nonrheumatic aortic (valve) stenosis; R73.02 Impaired glucose tolerance (oral); E78.00 Pure hypercholesterolemia, unspecified; I10 Essential (primary) hypertension
CPT/HCPCS: 99214

== ENCOUNTER → 2024-04-23 07:55 | Outpatient (REF) | payer MEDICARE, OTHER, SELFPAY ==
--- NOTE | 2024-04-23 07:58 | CA_ITS ---
Transthoracic Echocardiogram Patient (Last, First, Middle): Jayant Griffiths R Gender: Male Date of : 1940 Age: 84 Procedure Date: 04/23/2024 Procedure Type: Transthoracic Echocardiogram Location: OP Height: 167.64 cm Weight: 81.65 kg BSA: 1.91 m2 Heart Rate: bpm BP: 130 / 82 mmHg Job Hand: Referring MD: Ayaan Romero MD Block Out Machine Operator: Ayaan Romero MD Symptoms: I35.0 - Nonrheumatic aortic (valve) stenosis Study Quality: Adequate ECG Rhythm: Sinus Conclusions: - 1. Normal LV ejection fraction of 60 65% with impaired relaxation filling pattern 2. Nrkc-vs-zlvqyreu aortic stenosis 3. Normal RV systolic pressure 4. No gross pericardial effusion Findings Left Ventricle Normal left ventricular size, thickness, and systolic function. The visually estimated ejection fraction is between 60-65%. Spectral Doppler is indicative of an impaired relaxation filling pattern. E/E prime ratio is >15, consistent with elevated filling pressures. Right Ventricle Normal right ventricular cavity size and systolic function. Atria Both atria are normal in size. There is no evidence of interatrial shunt. Aortic Valve There is mild calcification of the aortic valve. There is mild thickening of the aortic valve. There is mild to moderate aortic valve stenosis. The peak aortic gradient is 32 mmHg.The mean gradient is 19 mmHg. The aortic valve area is 1.60 cm2. There is no aortic valve regurgitation. Mitral Valve There is mild anterior and posterior mitral leaflet thickening. There is mild mitral annular calcification. There is trace mitral valve regurgitation. There is no mitral valve stenosis. Pulmonic Valve The pulmonic valve is likely normal. Tricuspid Valve Likely normal tricuspid valve structure and function. There is trace tricuspid valve regurgitation. The right ventricular systolic pressure is normal. The right ventricular systolic pressure is 26 mmHg. Normal right atrial pressure. There is no evidence of pulmonary hypertension. Great Vessels The pulmonary artery was not well visualized. There is no dilatation of the ascending aorta measuring 3.10 cm. Venous The inferior vena cava is normal in size and collapses greater than 50% with inspiration. Pericardium/Pleural There is no evidence of pericardial effusion. Prior Study Comparison No significant change compared to prior study dated: 04/24/2023. Measurements 2D Linear Measurements IVSd: 1.26 0.6-0.9/0.6-1.0 cm LVIDd: 4.54 3.9-5.3/4.2-5.9 cm LVIDd Index: 2.38 2.4-3.2/2.2-3.1 cm/m2 LVIDs: 3.00 2.0-3.6 cm LVPWd: 1.23 0.7-1.1 cm Ao Root: 3.40 2.1-3.5 cm LA Diam: 3.30 2.7-3.8/3.0-4.0 cm LAIDs Index: 1.73 1.5-2.3 cm/m2 LV Mass: 264.01 67-162/88-224 g LV Mass Index: 138.22 43-95/49-115 g/m2 LVOT Diam: 2.30 3.0+(-)1.3 cm Mitral Valve MV Pk E: 0.72 MV PK A: 1.24 MV Decel Time: 201.00 E/A: 0.60 E'Lateral: 5.11 E'Medial: 4.46 E/E' Med: 16.20 E/E' Lat: 14.20 PHT: 59.00 MVA PHT: 3.73 Decel [place]: 3.60 Aortic Valve AoV Pk Brendon: 2.83 AoV Mn Brendon: 2.03 AoV VTI: 0.69 AoV Pk Grad: 32.00 Aov Mn Grad: 19.00 ANDREW Cont.VTI: 1.60 LVOT LVOT Pk Brendon: 1.03 LVOT Mn Brendon: 0.67 LVOT VTI: 0.26 LVOT Pk Grad: 4.00 LVOT Mn Grad: 2.00 LVOT Diam: 2.30 LVOT Area: 4.15 Diastolic Function MV Pk E: 0.72 MV Pk A: 1.24 E/A: 0.60 E'Medial: 4.46 E/E' Med: 16.20 E' Laterial: 5.11 E/E' Lat: 14.20 Right Ventricle TAPSE (mm): 27.00 TVS' Brendon: 13.00 Tricuspid Valve TR Pk Brendon: 2.41 TR Pk Grad: 23.00 RA Press: 3.00 RVSP: 26.00 Great Vessels Aorta Ao Root-2D: 3.40 2.0-3.7 cm Ao Asc: 3.10 2.1-3.4 cm Pulmonary Valve PV Pk Brendon: 1.27 Peak PV Grad: 6.00 Updated in Other Vendor System with Status of Final Ayaan Romero MD electronically signed on 04/24/2024 1:22:23 PM with status of Final
== END ==
LOC: HO.CARD 07:55
PROVIDERS: PCP Internal Medicine; Visit Provider Internal Medicine Cardiovascular Disease
DX: I35.0 Nonrheumatic aortic (valve) stenosis (principal)
CPT/HCPCS: 93306

== ENCOUNTER → 2024-04-23 07:58 | Outpatient (BNV) | payer MEDICARE, OTHER, SELFPAY | PROVIDERS: PCP Internal Medicine; Visit Provider Internal Medicine Cardiovascular Disease | DX: I35.0 Nonrheumatic aortic (valve) stenosis (principal); I35.8 Other nonrheumatic aortic valve disorders; I34.81 Nonrheumatic mitral (valve) annulus calcification | CPT/HCPCS: 93306 ==

== ENCOUNTER 2024-05-09 08:21 | Outpatient (AMB) | payer MEDICARE, OTHER, SELFPAY ==
[2024-05-09 08:25] VITALS: BP 114/78; PULSE 68; BMI 29.5
--- NOTE | 2024-05-09 08:25 | MHC.OFFVIS ---
Vital Signs 05/09/24 08:25 Height 5 ft 6 in Weight 183 lb BMI 29.5 BP 114/78 Blood Pressure Location Lt brachial Position Sitting Pulse 68 Intake Visit Reasons: 1 yr s/p echo Intake Note: 1 year follow-up with ekg after echo feeling good Youth Support Worker Required: No Allergies amoxicillin [AMOXICILLIN] Allergy (Unknown, Verified 11/30/23 08:35) SEVERE ITCHING Medication List - Last Reconciled 05/09/24 by Ayaan Romero MD aspirin (Adult Low Dose Aspirin) 81 mg PO DAILY atorvastatin 40 mg PO DAILY 90 days cyanocobalamin (vitamin B-12) 1,000 mcg PO DAILY lisinopril 40 mg PO DAILY nifedipine ER 90 mg PO DAILY 90 days sildenafil 100 mg PO DAILY PRN HPI Comments Details: Jayant comes for follow-up. He continues to remain very active. Walks 5 days a week, plays golf. Denies any symptoms exertional chest pain or shortness of breath. No symptoms of heart failure. No prolonged palpitation irregular heartbeat. No lightheadedness, syncope. Takes all his medications. Blood pressure is generally well controlled. [facility] Medical History (Updated 11/30/23 @ 08:41 by Siva Lawrence MD) Diverticulosis Cataract Inguinal hernia Otitis externa Rt flank pain Hematoma and contusion Bicipital tendinitis of right shoulder Painful arc syndrome of right shoulder Obesity (BMI 30.0-34.9) Left bundle branch block Aortic stenosis Cataracts, bilateral Shingles Erectile dysfunction Left renal stone Osteoarthritis Impaired glucose tolerance Chronic constipation Hyperlipidemia Hypertension Surgical History History of arthroplasty of left knee History of total right knee replacement History of left inguinal hernia repair Social History Housing: House Alcohol intake: current Alcohol intake frequency: 0-2 drinks per day Patient Tobacco Use Status: Former Tobacco user Tobacco use type: Cigarette Years Smoked: quit 22 years old e-Cigarette/Vaping Use: Never Used service: Yes ([employer]) Current occupational status: retired Cognitive needs: No Hearing needs: No Vision needs: Yes Review of Systems Const Denies chills, Denies fatigue, Denies fever(s), Denies frequent falls, Denies weakness, Denies weight gain and Denies weight loss ENT Denies dizziness Card Denies chest pain, Denies leg edema, Denies lightheadedness, Denies palpitations, Denies dyspnea, Denies dyspnea on exertion, Denies orthopnea and Denies other (loss of consciousness) Resp Denies cough, Denies dyspnea and Denies dyspnea on exertion GI Denies hematochezia and Denies change in stool character Musc Denies abnormal gait, Denies muscle weakness, Denies numbness, Denies radiating pain into limb and Denies tingling Neuro Denies abnormal gait, Denies dizziness, Denies frequent falls, Denies numbness, Denies tingling and Denies weakness Endo Denies fatigue and Denies palpitations Physical Exam Vital Signs: Last Vital Signs Pulse 68 05/09/24 08:25 BP 114/78 05/09/24 08:25 BMI result Body Mass Index 29.5 Const General: cooperative, comfortable, alert, awake and well groomed Nutritional Appearance: overweight Orientation/consciousness: patient oriented x3 Limitations: no limitations Neck Neck: Yes trachea midline, Yes supple and Yes no JVD Resp Effort & Inspection: normal respiratory effort Auscultation: clear to auscultation bilaterally Cardio Jugular venous distension: no JVD Palpation: normal PMI Rate: regular rate Rhythm: abnormal rhythm with ectopic beats Heart sounds: S1 normal heart sound present, S2 normal heart sound present, no click, no gallops and Murmur heart sound present systolic mid, decrescendo, crescendo and soft Peripheral pulses: Peripheral pulses 2+ throughout GI Auscultation: normal bowel sounds Neuro General: patient oriented x3 and no focal motor deficits Extrem General: Yes no clubbing, cyanosis or edema Psych Appearance: grossly normal Office Procedures EKG Details: EKG shows normal sinus rhythm with PACs with left bundle-branch block, unchanged from before [id number], Complete Assessment & Plan Assessment & Plan (1) Aortic stenosis: Comment: 05/2019, April 2022 1.54 cm2, April 2023 1.47 Code(s): I35.0 - Nonrheumatic aortic (valve) stenosis Category: Medical Plan: Aortic stenosis which is [id number]. No significant progression. Will continue monitor clinically. Cardinal symptoms associated with aortic stenosis were discussed. Management was discussed. Continue aggressive medical therapy. Continue low-dose aspirin therapy along with high-intensity statin therapy. Blood pressure is currently well optimized. Continue the same. (2) Left bundle branch block: Code(s): I44.7 - Left bundle-branch block, unspecified Category: Medical Plan: Left bundle-branch block, chronic without any new symptoms or signs of cardiomyopathy. Continue current medical therapy with lisinopril. No interventions required per se. Will follow up in the clinic in 1 year's time after an echocardiogram. Thank you for allowing me to partake in his care Coding Level of Care Code Est Pt Level 4 (59205) Diagnoses Aortic stenosis I35.0 Left bundle branch block I44.7 CPT Codes EKG - CPT: 99991-[id number], Complete ([id number])
== END 2024-05-09 08:46 | disposition home or self-care (01) ==
PROVIDERS: PCP Internal Medicine; Visit Provider Internal Medicine Cardiovascular Disease
DX: I35.0 Nonrheumatic aortic (valve) stenosis (principal); I44.7 Left bundle-branch block, unspecified
CPT/HCPCS: 93010; 99214

== ENCOUNTER → 2024-05-09 08:21 | Outpatient (BNVA) | payer MEDICARE, OTHER, SELFPAY | PROVIDERS: PCP Internal Medicine; Visit Provider Internal Medicine Cardiovascular Disease | DX: I35.0 Nonrheumatic aortic (valve) stenosis (principal); I44.7 Left bundle-branch block, unspecified | CPT/HCPCS: 93005; 99212 ==

== ENCOUNTER 2024-05-16 08:47 | Outpatient (AMB) | payer MEDICARE, OTHER, SELFPAY ==
[2024-05-16 08:48] VITALS: BP 132/70; PULSE 69; O2SAT 98; BMI 29.5
--- NOTE | 2024-05-16 08:48 | A.OFFVIS_ITS ---
Intake Vital Signs 05/16/24 08:48 Height 5 ft 6 in Weight 183 lb BMI 29.5 BP 132/70 Blood Pressure Location Lt brachial Position Sitting Pulse 69 Pulse Source Pulse Oximeter Pulse Oximetry (%) 98 Oxygen Delivery Method Room Air Intake Visit Reasons: AWV Intake Note: Patient is here for an Annual Wellness Visit. Allergies amoxicillin [AMOXICILLIN] Allergy (Unknown, Verified 05/16/24 09:08) SEVERE ITCHING Medication List - Last Reconciled 05/16/24 by Daylin Khalil PA-C aspirin (Adult Low Dose Aspirin) 81 mg PO DAILY atorvastatin 40 mg PO DAILY 90 days cyanocobalamin (vitamin B-12) 1,000 mcg PO DAILY lisinopril 40 mg PO DAILY nifedipine ER 90 mg PO DAILY 90 days sildenafil 100 mg PO DAILY PRN HPI AWV HPI Details 84-year-old male with history of aortic stenosis, hypertension, hypercholesterolemia, impaired glucose tolerance last seen by Dr. Lawrence coming in for annual wellness visit.? In review of the notes, patient was recently seen by Cardiology for follow up advised to continue on aggressive medical therapy for aortic stenosis and follow up in 1 year with repeat echocardiogram. Patient states he is feeling generally well and has no acute concerns today. He is not up-to-date on his tetanus vaccine. [facility] Medical History Diverticulosis Cataract Inguinal hernia Otitis externa Rt flank pain Hematoma and contusion Bicipital tendinitis of right shoulder Painful arc syndrome of right shoulder Obesity (BMI 30.0-34.9) Left bundle branch block Aortic stenosis Cataracts, bilateral Shingles Erectile dysfunction Left renal stone Osteoarthritis Impaired glucose tolerance Chronic constipation Hyperlipidemia Hypertension Surgical History History of arthroplasty of left knee History of total right knee replacement History of left inguinal hernia repair Social History Housing: House Alcohol intake: current Alcohol intake frequency: 0-2 drinks per day Patient Tobacco Use Status: Former Tobacco user Tobacco use type: Cigarette Years Smoked: quit 22 years old e-Cigarette/Vaping Use: Never Used service: Yes ([employer]) Current occupational status: retired Cognitive needs: No Hearing needs: No Vision needs: Yes Questionnaire Medicare Wellness Checkup What is your age?: 80 or older What gender do you identify with?: male During the past 4 weeks, how much have you been bothered by emotional problems such as feeling anxious, depressed, irritable, sad or downhearted, and blue?: slightly During the past 4 weeks, has your physical & emotional health limited your social activities with family, friends, neighbors, or groups?: not at all During the past 4 weeks, how much bodily pain have you generally had?: mild pain During the past 4 weeks, was someone available to help you if you needed & wanted help?: yes, as much as I wanted During the past 4 weeks, what was the hardest physical activity you could do for at least 2 minutes?: moderate Can you get to places out of walking distance without help? (For eg., can you travel alone on buses, taxis or drive your car?): Yes Can you go shopping for groceries or clothes without someone's help?: Yes Can you prepare your own meals?: Yes Can you do your housework without help?: Yes Because of any health problems, do you need the help of another person with your personal care needs such as eating, bathing, dressing or getting around the house?: No Can you handle your own money without help?: Yes During the past 4 weeks, how would you rate your health in general?: good During the past 4 weeks how have things been going for you?: pretty well Are you having difficulties driving your car?: no Do you always fasten your seat belt when you are in a car?: yes, usually During past 4 weeks, have you been bothered by the following: never: Falling or dizzy when standing up, Trouble eating well?, Problems using the telephone? and Tiredness or fatigue? and sometimes: Sexual problems? and Teeth or denture problems? Have you fallen 2 or more times in the past year?: No Are you afraid of falling?: No Are you a smoker?: no During the past 4 weeks, how many drinks of wine, beer, or other alcoholic beverages did you have?: 6-9 drinks per week Do you exercise for about 20 minutes 3 or more times a week?: yes, most of the time Have you been given information to help with the following?: no: Hazards in your house that might hurt you? and no: Keeping track of your medications? How often do you have trouble taking medicines the way you have been told to primo e them?: I always take medicine as prescribed How confident are you that you can control & manage most of your health problems?: very confident What is your race?: White PHQ-9 Over the last 2 weeks, how often have you been bothered by any of the following problems? 1. Little interest or pleasure in doing things: not at all 2. Feeling down, depressed, or hopeless: several days 3. Trouble falling or staying asleep, or sleeping too much: not at all 4. Feeling tired or having little energy: not at all 5. Poor appetite or overeating: not at all 6. Feeling bad about yourself - or that you are a failure or have let yourself or your family down: several days 7. Trouble concentrating on things, such as reading the newspaper or watching television: not at all 8. Moving or speaking so slowly that other people could have noticed. Or the opposite - being so fidgety or restless that you have been moving around a lot more than usual: not at all 9. Thoughts that you would be better off or of hurting yourself in some way: not at all Total score: 2 Depression Screening Interpretation: Negative Depression Screening Done: Yes 96282 - PHQ-9 Billing: Yes Source: Developed by Drs. Dung Joel, Salina Diaz, Richard Bowden and colleagues, with an educational prince from [employer]. Review of Systems Const Denies body aches, Denies fatigue, Denies fever(s), Denies frequent falls, Denies headache(s) and Denies weakness Eyes Details: eye doctor twice yearly Reports no additional complaints and Denies change in vision ENT Denies dysphagia, Denies dizziness, Denies facial pain, Denies headache(s), Denies nasal congestion and Denies odynophagia Card Denies chest pain, Denies syncope, Denies irregular heart rhythm, Denies leg edema, Denies lightheadedness and Denies dyspnea Resp Denies cough and Denies dyspnea GI Denies constipation, Denies dysphagia, Denies dyspepsia, Denies diarrhea, Denies nausea, Denies odynophagia and Denies vomiting Denies dysuria, Denies urinary frequency, Denies urinary hesitancy and Denies urinary urgency Musc Denies back pain and Denies myalgias Skin/Breast Reports system reviewed and no additional complaints, except as documented Neuro Denies dizziness, Denies syncope, Denies frequent falls, Denies headache(s) and Denies weakness Psych Reports no additional complaints Endo Denies fatigue Physical Exam Vital Signs: Last Vital Signs Pulse 69 05/16/24 08:48 BP 132/70 05/16/24 08:48 Pulse Ox 98 05/16/24 08:48 Oxygen Delivery Method Room Air 05/16/24 08:48 BMI result Body Mass Index 29.5 Const General: cooperative, healthy appearing, comfortable and no acute distress Orientation/consciousness: patient oriented x3 HEENT Head: Yes normocephalic Ears: hearing grossly normal bilaterally, external ears normal, TM's normal bilaterally and EAC's normal General nose exam: Normal external nose present Face and sinus: Yes normal facial exam and Yes sinuses nontender Mouth: Normal oral and palatal mucosa present and tongue normal Throat: Yes posterior oropharynx normal Eyes General: appearance normal, both eyes and all related structures Conjunctivae: conjunctivae normal Pupils: Equal, round and reactive pupils present EOM: EOMs intact bilaterally and No Nystagmus present Neck Neck: Yes normal visual inspection, Yes full ROM and Yes no lymphadenopathy Chest Chest palpation & inspection: normal inspection of the chest Resp Effort & Inspection: normal respiratory effort Auscultation: clear to auscultation bilaterally, no crackles, no rales, no rhonchi, no wheezes and breath sounds present Cardio Rate: regular rate Rhythm: regular rhythm Heart sounds: Murmur heart sound present systolic (At the aortic area without radiation) Peripheral pulses: radial pulses present and dorsalis pedis present GI Inspection: Yes normal to inspection and No Abdominal wall edema Palpation (GI): Soft to palpation, not firm and nontender Auscultation: normal bowel sounds Rectal Exam - Male: Yes deferred General: Yes no CVA tenderness Back/Spine/Pelvis Back: no CVA tenderness Skin General skin exam: no rashes or lesions noted Neuro General: patient oriented x3 Cranial nerves: Yes Equal, round and reactive pupils present, Yes Midline tongue present, Yes Ability to bilaterally elevate shoulders present and No Nystagmus present Gait exam (Neuro): Normal gait present Extrem General: Yes normal to inspection, Yes full ROM, No no pedal edema and No edema Psych Speech and movement: Normal speech and movement present Affect: normal affect Insight: Good insight present (Psych) Judgement: Good judgement present (Psych) Immunizations tetanus-diphtheria toxoids-Td 2 Lf unit-2 Lf unit/0.5 mL IM suspension Performing Provider: Daylin Khalil PA-C Performing Location: [facility] Administered by: GERMAN Guthrie on 05/16/24 09:22 Dose Route Admin Location Dispensed Lot Number Expiration Date NDC [employer] 0.5 mL IM Left Deltoid 0.5 mL [id number] 09/16/24 [address]-6 [employer] VIS Given Date VIS Provided VIS Publication Date 05/16/24 Single Vaccine 21 Eligibility Eligibility Date Funding Source Not [facility] Eligible 05/16/24 [facility] funds Assessment & Plan Assessment & Plan (1) Overweight (BMI 25.0-29.9): Code(s): E66.3 - Overweight Plan: Encouraged healthy diet and regular exercise. (2) Encounter for subsequent annual wellness visit in Medicare patient: Code(s): Z00.00 - Encounter for general adult medical examination without abnormal findings Plan: Patient is up-to-date on all recommended routine screenings and vaccinations for his age. Ordered for updated blood work to be completed before next appointment. [place] of care and screening recommendations were reviewed at this visit. (3) Left bundle branch block: Code(s): I44.7 - Left bundle-branch block, unspecified Plan: Continue to follow with Cardiology. (4) Aortic stenosis: Comment: 05/2019, April 2022 1.54 cm2, April 2023 1.47 Code(s): I35.0 - Nonrheumatic aortic (valve) stenosis Plan: Per Cardiology continuing on aggressive medical management at this time repeat echocardiogram in 1 year. (5) Impaired glucose tolerance: Code(s): R73.02 - Impaired glucose tolerance (oral) Plan: Decrease the amount of carbohydrates such as pasta, bread, rice, and potatoes and limit the amount of sweets. Although fruits are generally healthy they should be eaten in moderation as they are still high in sugar. Hemoglobin A1c goal of less than 7%. (6) Hyperlipidemia: Code(s): E78.5 - Hyperlipidemia, unspecified Qualifiers: Hyperlipidemia type: pure hypercholesterolemia Qualified Code(s): E78.00 - Pure hypercholesterolemia, unspecified Plan: Avoid foods that are high in cholesterol such as red meat, fried foods, eggs and baked goods. Triglyceride goal of less than 150 and LDL goal of less than 70. Continue on atorvastatin 40 mg. Last labs were at goal and we will repeat in 6 months. (7) Hypertension: Comment: Echo 55-60% grade 1 diastolic dysfunction mild May 2019 Code(s): I10 - Essential (primary) hypertension Qualifiers: Hypertension type: essential hypertension Qualified Code(s): I10 - Essential (primary) hypertension Plan: Continue on current blood pressure medication. Avoid salt intake and encourage healthy diet and regular exercise. Blood pressure at goal today. Plan This note was constructed using voice recognition software. While every effort has been made to ensure accuracy and television analyzer, still areas may have been included sometimes these areas may affect the content or meeting of the given symptoms. Total time spent caring for the patient today was 30 minutes. This includes time spent before the visit reviewing the chart, time spent during the visit, and time spent after the visit and documentation. Orders: Orders Complete Blood Count Auto Diff 6 Months Z00.00 - Encounter for general adult medical examination without abnormal findings Hemoglobin A1c 6 Months Z00.00 - Encounter for general adult medical examination without abnormal findings TSH reflex Free T4 6 Months Z00.00 - Encounter for general adult medical examination without abnormal findings Free T4 (Free Thyroxine) 6 Months Z00.00 - Encounter for general adult medical examination without abnormal findings PSA, Ultra Sensitive Today Z00.00 - Encounter for general adult medical examination without abnormal findings Td State Immunization Today Z23 - Encounter for immunization Comprehensive Met. Panel 6 Months Z00.00 - Encounter for general adult medical examination without abnormal findings Lipid Panel 6 Months Z00.00 - Encounter for general adult medical examination without abnormal findings Vitamin B12 and Folate 6 Months Z00.00 - Encounter for general adult medical examination without abnormal findings Vitamin D 25-OH (D2 and D3) 6 Months Z00.00 - Encounter for general adult medical examination without abnormal findings Quality Reporting (2019) Depression/Bipolar (159/160/161/177) PHQ-9: Total score: 2 Coding Level of Care Code Medicare Subsequent (G0439) Diagnoses Overweight (BMI 25.0-29.9) E66.3 Encounter for subsequent annual wellness visit in Medicare patient Z00.00 Left bundle branch block I44.7 Aortic stenosis I35.0 Impaired glucose tolerance R73.02 Pure hypercholesterolemia E78.00 Hyperlipidemia type: pure hypercholesterolemia Essential hypertension I10 Hypertension type: essential hypertension
== END 2024-05-16 09:31 | disposition home or self-care (01) ==
PROVIDERS: PCP Internal Medicine
DX: Z00.00 Encounter for general adult medical examination without abnormal findings (principal); I44.7 Left bundle-branch block, unspecified; Z68.29 Body mass index [BMI] 29.0-29.9, adult; E66.811 Obesity, class 1; I35.0 Nonrheumatic aortic (valve) stenosis; R73.02 Impaired glucose tolerance (oral); E78.00 Pure hypercholesterolemia, unspecified; I10 Essential (primary) hypertension; Z23 Encounter for immunization

== ENCOUNTER → 2024-05-16 08:47 | Outpatient (BNVA) | payer MEDICARE, OTHER, SELFPAY | PROVIDERS: PCP Internal Medicine | DX: Z00.00 Encounter for general adult medical examination without abnormal findings (principal); Z23 Encounter for immunization; E66.3 Overweight; Z68.29 Body mass index [BMI] 29.0-29.9, adult; I44.7 Left bundle-branch block, unspecified; I35.0 Nonrheumatic aortic (valve) stenosis; R73.02 Impaired glucose tolerance (oral); E78.00 Pure hypercholesterolemia, unspecified; I10 Essential (primary) hypertension; Z79.899 Other long term (current) drug therapy | CPT/HCPCS: 90471; 90714; 96127 ==

== ENCOUNTER 2024-11-13 06:54 | Outpatient (REF) | payer MEDICARE, OTHER, SELFPAY ==
--- OUTSIDE RECORDS SUMMARY | 2024-11-13 06:57 | XMS_ITS | Patient Health Record ---
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 Name Role Phone Siva Lawrence Primary Care Provider Armand Arteaga Unavailable [phone] Reason For Referral No Information Plan Of Treatment No Information Insurance Providers Payer Name Payer Address Payer Phone Subscriber Number Group Number Insured Name Patient Relationship to Insured Coverage Start Date Coverage End Date Medicare National [employer] [address] [facility] [place] [id number] [id number] Jayant Griffiths Self - patient is the insured [facility] [address] [place] [id number] Jayant Griffiths Self - patient is the insured
--- OUTSIDE RECORDS SUMMARY | 2024-11-13 06:57 | XMS_ITS | Data Portability ---
Author Organization [facility] Address [address] [place] [address] Assessment Encounter Date Assessment Date Assessment LastModified by Organization Details LastModified Time 09/12/2023 09/12/2023 Patient was measured for shoes 8.5 4E (wide) Suggested new shoes and visiting [id number] Nails are thick and dystrophic, suggest topical medication for infection [email or web address] Not available 09/12/2023 12:48:38 10/10/2023 10/10/2023 Patient was measured for shoes 8.5 4E (wide) last visit. He has since purchase new wider shoes Nails are thick and dystrophic, suggest topical medication for infection, does not wish to treat at this time. [email or web address] Not available 10/10/2023 09:30:15 Plan of Treatment Reminders Order Date Submit Date Provider Last Modified By Organization Details Last Modified Time Details Appointments None recorded. Lab None recorded. Referral None recorded. Procedures None recorded. Surgeries None recorded. Imaging XR, foot, 3 or more view 2023 024 [email or web address] [facility], [address] [place], [address], 12:48:39 Medication Orders Nail Fungus Compound: Itraconazo le, Ibuprofen, DMSO Nail Solution 2023 024 [facility], [address] [place] [address], [place], [address], 09:22:04 Patient TargetsNo targets recorded. Patient InstructionsNo instructions recorded. Reason for Referral None Reported. Results Created Date Observation Date Name Description Value Unit Range Abnormal Flag Note LastModifiedBy Organization Detail LastModifiedTime 09/12/19 24 09/12/2023 XR, foot, 3 or more view No observ ation record ed. [email or web address] Not Available 2023 10:04:31 09/12/19 24 09/12/2023 XR, foot, 3 or more view No observ ation record ed. [email or web address] Not Available 2023 10:04:32 09/12/19 24 XR, foot, 3 or more view No observ ation record ed. [email or web address] [facility] [address] [place], [address], 09/12/2023 12:48:02 Result Notes None recorded. Problems Name Problem SNOMED Code Status Onset Date Resolution Date Notes Provider Name and Address Organization Details Recorded Time Onychomycos is of toenails 698243770 Active 2023 JEANETTE TENORIO DPM [address] [place] [address], JAMAL Choudhury, [address], [facility] 4 09:03:05 Bursitis of right foot 0771517252000 9108 Active 2023 JEANETTE TENORIO DPM [address] [place] [address], [place], [address], [facility] 4 09:25:46 Problem Notes None recorded. Procedures Surgical History Date Name Laterality Status Provider Name and Address Organization Details Recorded Time 4 G0127 Dystrophic Nail Trimming completed JEANETTE TENORIO DPM [address] [place] [address], [address], [facility] 10/10/2023 09:17:03 4 Trigger Point Injection: single or multiple completed JEANETTE TENORIO DPM [address] [place] [address], [address], [facility] 09/12/2023 09:25:18 Imaging Results Imaging Date Name Status LastModified by Organiz ation Details LastModified Time 09/12/2023 XR, foot, 3 or more view completed Information not available 09/12/2023 10:04:31 09/12/2023 XR, foot, 3 or more view completed Information not available 09/12/2023 10:04:32 09/12/2023 XR, foot, 3 or more view completed [email or web address] [facility] [address] [place], [address], 09/12/2023 12:48:02 Procedure Notes None recorded. Medical Equipment None Reported. Allergies Allergen ID Allergen Name Allergen Category Reaction Reaction Severity Criticality Documentation Date Start Date Code Code System Note Provider Name and Address Organization Details Recorded Time 054766 amoxicill in medicatio n Not available Not available Not available 09/12/2023 723 [facility] 08[facility] Medications Name Sig Start Date Stop Date Status Note LastModified by Organization Details LastModified Time Nail Fungus Compound: Itraconazole , Ibuprofen, DMSO Nail Solution Apply thin layer of solution to affected nail(s) twice daily. 2023 active Not Available Not Available Not Avai lable atorvastatin 40 mg tablet TAKE 1 TABLET BY MOUTH EVERY DAY FOR 90 DAYS active Not Available Not Available No t Available atorvastatin 20 mg tablet TAKE 1 TABLET BY MOUTH EVERY DAY active Not Available Not Available No t Available nifedipine ER 90 mg tablet,exten ded release TAKE 1 TABLET BY MOUTH DAILY FOR 90 DAYS active Not Available Not Available Not Available sildenafil 100 mg tablet PLEASE SEE ATTACHED FOR DETAILED DIRECTIONS active Not Available Not Available N ot Available nifedipine ER 60 mg tablet,exten ded release TAKE 1 TABLET BY MOUTH EVERY DAY active Not Available Not Available No t Available lisinopril 40 mg tablet TAKE 1 TABLET BY MOUTH EVERY DAY active Not Available Not Available No t Available Flowflex COVID-19 Antigen Home Test kit DIRECTED ON PACKAGE active Not Available Not Available N ot Available Vitals Date Recorded Body height Body mass index (BMI) Body weight Provider Name and Address Organization Details Last Updated DateTime 09/12/2023 167.64 cm 29.1 kg/m2 91824.63 g Latoya Gallardo [facility] 09/12/2023 08:39:44 Date Recorded Body height Provider Name an d Address Organization Details Last Updated DateTime 10/10/2023 167.64 cm Latoya Gallardo [facility] 12/2023 08:05:50 Social History None recorded. Functional Status None recorded. Mental Status None recorded. Family History Nothing Reported. Medical History No medical history recorded. Past Encounters Encounter ID Performer Location Encounter Start Date Encounter Closed Date Diagnosis/Indication Diagnosis SNOMED-CT Code Diagnosis ICD10 Code Diagnosis Note [id number] JEANETTE TENORIOCORNELL [facility] [address] [place] [address] 09/12/2023 08:11:08 09/12/2023 09:21:56 Onychomycosis of toenails 125617707 B35.1 The patient was educated about nail fungus. I recommende d they use the topical medication on the nails until clear. Other prevention s include the use of proper fitting shoes to reduce microtraum a or irritation ; cleaning the nails with white vinegar, using a toothbrush to debride out any mycotic nail debris from under the nail plate, as well as changing socks frequently . Explained to patient that depending on how fast their nails grow will determine how quickly they have clear healthy nails. The infected part of the nail will have to grow out and be trimmed. Sometimes it takes up to one year for the nail to completly grown up. The topical applicatio n should be applied daily after the patient showers, to help penetrate when the nail and the fungus is the softest. Bursitis o f right foot 8761639045 5152461 M77.51 right fifth digit bursitis. Secondary to shoes that are not large enough to accommodat e his foot. x-ray was taken three view of {{right* l eft}} {{foot* an kle}}. Patient was shielded. weight bearing, and denied possibilit y of . Reviewed x-rays with patient, explaining findings.1 . Soft tissue contour changes {{not present pr esent*}}. right lateral fifth met head swelling noted on xray 2. Radiolucen t breaks in the cortex are {{present not present*}} . 3. Bone Density is {{reduced appropriat e*}} for age and gender of the patient. 4. Alignment is noted to be {{well aligned* o ut of alignment} }. 5. Radiograph ic impression {{Normal joint spaces, bone density, no fractures seen on this imaging De formity as follows De formity as follows: narrow jont spaces. hammertoes noted to right 1-5 toes#}} [id number] JEANETTE TENORIO DPM [facility] [address] [place] [address] 10/10/2023 07:59:37 10/10/2023 08:13:59 Onychomycosis of toenails 800089550 B35.1 The patient was educated about nail fungus. I recommende d they use the topical medication on the nails until clear. Other prevention s include the use of proper fitting shoes to reduce microtraum a or irritation ; cleaning the nails with white vinegar, using a toothbrush to debride out any mycotic nail debris from under the nail plate, as well as changing socks frequently . Explained to patient that depending on how fast their nails grow will determine how quickly they have clear healthy nails. The infected part of the nail will have to grow out and be trimmed. Sometimes it takes up to one year for the nail to completly grown up. The topical applicatio n should be applied daily after the patient showers, to help penetrate when the nail and the fungus is the softest. Does not wish to treat at this time Bursitis o f right foot 8568854327 7265830 M77.51 ImprovedCo ntniue to wear larger shoes. Health Concerns Section Related Observation LastModified by Organization Detai ls LastModified Time None Recorded Concern Status LastModified by Organization Details LastModified Time None Recorded Advance Directives Directive None Recorded Payers Encounter Date Sequence Insurance Name Policy Number Policy Heard Covered Member ID Heard Member ID Guarantor Name 09/12/2023 1 [place] [id number] Jayant Bailey [place] [id number] Jayant Aye 09/12/2023 2 [facility] [employer] - PLAN 1 (MEDICARE SUPPLEMENT) [id number] 1 Jayant R [place] [id number] Jayant Aye 10/10/2023 1 [place] [id number] Jayant R Aye [id number] Jayant Griffiths 10/10/2023 2 [facility] - PLAN 1 (MEDICARE SUPPLEMENT) [id number] 1 Jayant Bailey Aye [id number] Jayant Aye Notes Date Note Type Note Provider Name and Address Organization Details Recorded Time 09/12/2023 text/html Patient likes to walk an hour a day, and is normally wearing sketchers. Now when he goes on walks he has right fifth digit pain. He does not know how to treat it at home. Has a heel compressor at home in [place]. He comes to [place] in the winter. JEANETTE TENORIO DPM [address] [place], [address], [facility] 09/12/2023 12:51:23 10/10/2023 text/html Patient likes to walk an hour a day, and is normally wearing sketchers. Now when he goes on walks he has right fifth digit pain. He does not know how to treat it at home. Has a heel compressor at home in [place]. He comes to [place] in the winter. pt is here for a [facility] an follow o for right foot pain Patient likes to walk an hour a day, and is normally wearing sketchers. Now when he goes on walks he has right fifth digit pain. He does not know how to treat it at home. Has a heel compressor at home in [place]. He comes to [place] in the winter. JEANETTE TENORIO DPM [address] [place], [address], [facility] 10/10/2023 09:30:54
--- OUTSIDE RECORDS SUMMARY | 2024-11-13 06:57 | XMS_ITS ---
Author Organization [facility] Address [address] [place] [address] Care Team Providers Care Tax Map Technician Name Role Phone Siva Lawrence Primary Care Provider Armand Arteaga [phone] Encounters Encounter Location Date Provider Diagnosis [facility] [address] [place] [address] 11/15/2023 Armand Lay Plan Of Treatment No Information Progress Notes * Avelina ALATORREOB: (84 yo M)Acc No.[id number]:11/15/2023 Progress Notes Patient:?CELI Jayant Provider:?Armand Lay DPM :1940???Age:83 Y???Sex:Male Pranav e:11/15/2023 Address:[address], [place]-[address] Pcp:Siva Lawrence Subjective: * Chief Complaints: * ??? * Medical History:? Objective: * Vitals:? Assessment: Plan: * Treatment: * Images: * The named appointment provid er may or may not be the originator of this progress note, and it is not deemed complete until electronically signed by the appointment provider. Sign off status: Pending * Provider:?Armand Lay DPM Date:? 024 Generated for Lavonne toussaint/Juli/eTransmitting on:?11/13/2024 06:57 AM EDT
--- OUTSIDE RECORDS SUMMARY | 2024-11-13 06:57 | XMS_ITS ---
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 Generated for Printi ng/Fayusrag/eTransmitting on:?11/13/2024 06:57 AM EDT
--- OUTSIDE RECORDS SUMMARY | 2024-11-13 06:57 | XMS_ITS ---
Author Organization [facility] Address [address] [place] [address] Care Team Providers Care Bag Liner Name Role Phone Siva Lawrence Primary Care Provider Armand Arteaga [phone] REASON FOR VISIT Cancel Encounters Encounter Location Date Provider Diagnosis [facility] [address] [place] [address] 07/20/2023 Armand Lay Plan Of Treatment No Information Progress Notes * Avelina ALATORREOB: (83 yo M)Acc No.[id number]:07/20/2023 Patient:?Jayant Alatorre :1940???Age:83 Y???Sex:Male Address:[address] [place] [address] * true * Date:? Generated for Printi ng/Fayusrag/eTransmitting on:?11/13/2024 06:57 AM EDT
[2024-11-13 10:29] LABS: MANUAL DIFF FLAG NO
[2024-11-13 11:01] LABS: Basophils Absolute Auto 0.1 X10*3/uL (0.0-0.2); Basophils Percent Auto 1.1 % (0-2); Eosinophils Absolute Auto 0.4 X10*3/uL (0.0-0.4); Hematocrit 48.1 % (42.0-52.0); Hemoglobin 16.4 g/dl (14.0-18.0); Imm Gran Abs Auto 0.04 X10*3/uL (0.00-0.03); Imm Gran Pct Auto 0.4 % (0.0-0.4); Lymphocytes Absolute Auto 1.3 X10*3/uL (1.2-4.9); Lymphocytes Percent Auto 13.5 % (20-40); Mean Corpuscular HGB Conc 34.1 g/dl (31.0-36.0); Mean Corpuscular Hemoglobin 31.8 pg (27.0-33.0); Mean Corpuscular Volume 93.4 fL (80.0-98.0); Mean Platelet Volume 10.5 fL (9.4-12.4); Monocytes Absolute Auto 0.8 X10*3/uL (0.1-1.2); Monocytes Percent Auto 8.8 % (2-11); Neutrophils Absolute Auto 6.9 x10*3/uL (2.0-8.3); Neutrophils Percent Auto 72.2 % (45-73); Platelet Count 174 X10*3/uL (160-400); Red Blood Count 5.15 X10*6/uL (4.60-5.80); Red Cell Distribution Width 14.6 % (11.0-16.0); White Blood Count 9.6 X10*3/uL (4.8-10.8)
[2024-11-13 11:05] LABS: Estimated Average Glucose 120 mg/dL; Hemoglobin A1C 172.3266 umol/L; Hemoglobin A1c % 5.8 % (<6.0); Total Hemoglobin (HGBA1C) 4330.8212 umol/L
[2024-11-13 11:34] LABS: Alanine Aminotransferase 31 U/L (0-40); Albumin Level 4.5 g/dL (3.5-5.0); Alkaline Phosphatase 55 U/L (39-117); Anion Gap 10 (12-20); Aspartate Amino Transferase 31 U/L (5-37); Bilirubin Total 0.8 mg/dL (0.0-1.0); Blood Urea Nitrogen 23 mg/dL (9-16); Calcium 9.3 mg/dL (8.4-10.2); Carbon Dioxide 24 mmol/L (22-29); Chloride 110 mmol/L (96-108); Cholesterol 140 mg/dL (<200); Estimated Glomerular Filt Rate > 60; Free T4 (Free Thyroxine) 1.09 ng/dL (0.71-1.85); Glucose Random 120 mg/dL (60-115); HDL Cholesterol 53 mg/dL (>40); LDL Cholesterol Calculated 71 mg/dL (<100); Potassium 4.4 mmol/L (3.3-5.1); Sodium 140 mmol/L (135-145); TSH reflex Free T4 1.69 uIU/mL (0.32-4.0); Total Protein 7.6 g/dL (6.5-8.0); Triglycerides 82 mg/dL (<150)
[2024-11-13 11:42] LABS: Vitamin B12 827 pg/mL (200-900)
[2024-11-18 13:53] LABS: PSA, Ultra Sensitive 4.11 ng/mL
[2024-11-18 15:08] LABS: Vitamin D 25-OH, D2 <4 ng/mL; Vitamin D 25-OH, D3 36 ng/mL; Vitamin D 25-OH, Total 36 ng/mL (30-100)
== END 2024-11-13 06:55 | disposition home or self-care (01) ==
LOC: HO.HMGCLDS 06:54
PROVIDERS: PCP Internal Medicine
DX: Z00.00 Encounter for general adult medical examination without abnormal findings (principal); Z12.5 Encounter for screening for malignant neoplasm of prostate; Z13.1 Encounter for screening for diabetes mellitus; Z13.6 Encounter for screening for cardiovascular disorders
CPT/HCPCS: 36415; 80053; 80061; 82306; 82607; 82746; 83036; 84153; 84439; 84443; 85025

== ENCOUNTER 2024-11-20 08:22 | Outpatient (AMB) | payer MEDICARE, OTHER, SELFPAY ==
--- NOTE | 2024-11-20 08:32 | MHC.PC.OV ---
Vital Signs 11/20/24 08:33 Height 5 ft 6 in Weight 185 lb BMI 29.9 BP 130/70 Blood Pressure Location Lt brachial Position Sitting Pulse 72 Pulse Source Pulse Oximeter Pulse Oximetry (%) 95 Oxygen Delivery Method Room Air Intake Visit Reasons: f/u HTN and HLD Allergies amoxicillin [AMOXICILLIN] Allergy (Unknown, Verified 05/16/24 09:08) SEVERE ITCHING Tobacco use date assessed: 11/20/24 Fall risk assessment: No Falls in past year Last assessed Fall Risk: 11/20/24 Dental Screening Dental Screen Date: 11/20/24 Did you have a dental visit in the last 12 months?: Yes Did you have a dental problem in the last 6 months where you did not have access to dental care?: No Was dental information given to patient?: Patient has dentist [facility] Medical History (Updated 11/20/24 @ 08:45 by Siva Lawrence MD) Diverticulosis Cataract Inguinal hernia Otitis externa Rt flank pain Hematoma and contusion Bicipital tendinitis of right shoulder Painful arc syndrome of right shoulder Obesity (BMI 30.0-34.9) Left bundle branch block Aortic stenosis Cataracts, bilateral Shingles Erectile dysfunction Left renal stone Osteoarthritis Impaired glucose tolerance Chronic constipation Hyperlipidemia Hypertension Surgical History History of arthroplasty of left knee History of total right knee replacement History of left inguinal hernia repair Social History Housing: House Alcohol intake: current Alcohol intake frequency: 0-2 drinks per day Patient Tobacco Use Status: Former Tobacco user Tobacco use type: Cigarette Years Smoked: quit 22 years old e-Cigarette/Vaping Use: Never Used Second Hand Smoke Exposure: No service: Yes ([employer]) Current occupational status: retired Cognitive needs: No Hearing needs: No Vision needs: Yes Questionnaire PHQ-9 Over the last 2 weeks, how often have you been bothered by any of the following problems? 1. Little interest or pleasure in doing things: not at all 2. Feeling down, depressed, or hopeless: several days 3. Trouble falling or staying asleep, or sleeping too much: not at all 4. Feeling tired or having little energy: not at all 5. Poor appetite or overeating: not at all 6. Feeling bad about yourself - or that you are a failure or have let yourself or your family down: several days 7. Trouble concentrating on things, such as reading the newspaper or watching television: not at all 8. Moving or speaking so slowly that other people could have noticed. Or the opposite - being so fidgety or restless that you have been moving around a lot more than usual: not at all 9. Thoughts that you would be better off or of hurting yourself in some way: not at all Total score: 2 Depression Screening Interpretation: Negative Depression Screening Done: Yes 41262 - PHQ-9 Billing: Yes Source: Developed by Drs. Dung Joel, Salina Diaz, Richard Bowden and colleagues, with an educational prince from [employer]. Thrive Questionnaire Date Thrive assessed: 11/20/24 I am a: Patient What is your living situation today?: I have a steady place to live Within the past 12 months, did the food you bought not last and you didn't have the money to get more?: Never true Within the past 12 months, did you worry whether your food would run out before you got money to buy more?: Never true Do you have trouble paying for medicines?: No Do you have trouble getting transportation to medical appointments?: No Do you have trouble paying your heating and electricity bill?: No Do you have trouble taking care of your child, family member or friend?: No Do you have trouble with day-to-day activities such as bathing, preparing meals, shopping, managing finances, etc.?: No Are you currently unemployed and looking for a job?: No Are you interested in more education?: No Currently or been in a relationship where the following occur: No concerns reported THRIVE Score: 0 AUDIT C Alcohol Use Questionnaire (AUDIT-C) 1. How often do you have a drink containing alcohol?: 4 or more times a week 2. How many drinks containing alcohol do you have on a typical day when you are drinking?: 1 or 2 3. How often do you have six or more drinks on one occasion?: Never Total Score: 4 LANE-[address] L[address]-7 Date LANE - 7 assessed: 11/20/24 Feeling nervous, anxious, or on edge: 0 = Not at all Not being able to stop or control worryin = Not at all Worrying too much about different things: 0 = Not at all Trouble relaxin = Not at all Being so restless that it is hard to sit still: 0 = Not at all Becoming easily annoyed or irritable: 0 = Not at all Feeling afraid as if something awful might happen: 0 = Not at all Total LANE-7 score (0-4 normal; 5-9 mild; 10-14 moderate; 15-21 severe): 0 Source: Developed by Drs. Dung Joel, Salina Diaz, Richard Bowden and colleagues, with an educational prince from [employer]. LANE-[address] L[address]-7 Assessment Tool: LANE-7 Assessment 03823 Physical exam (Primary Care) Vital Signs: Last Vital Signs Pulse 72 11/20/24 08:33 BP 130/70 11/20/24 08:33 Pulse Ox 95 11/20/24 08:33 Oxygen Delivery Method Room Air 11/20/24 08:33 BMI result Body Mass Index 29.9 Tobacco/Smoking Status: Tobacco use Status Tobacco use date assessed 11/20/24 11/20/24 08:39 Patient Tobacco Use Status Former Tobacco user 11/20/24 08:39 Tobacco use type Cigarette 11/20/24 08:39 e-Cigarette/Vaping Use Never Used 11/20/24 08:39 PHQ-9: PHQ-9 Score PHQ-9: Total score 2 11/20/24 08:39 Depression Screening Interpretation: Negative Thrive Assessment: Date of Thrive Assessment Date Thrive assessed 11/20/24 11/20/24 08:39 Currently or been in a relationship where the following occur: No concerns reported Const General: alert; No acute distress Eyes Conjunctivae: conjunctivae normal Resp Auscultation: clear to auscultation bilaterally Cardio Rate: regular rate Rhythm: regular rhythm GI Inspection: Yes normal to inspection Extrem General: Yes normal to inspection and No edema Coding Level of Care Code Est Pt Level 4 (38967) Complex EM visit Add On G2211 Diagnoses Overweight (BMI 25.0-29.9) E66.3 Essential hypertension I10 Hypertension type: essential hypertension Pure hypercholesterolemia E78.00 Hyperlipidemia type: pure hypercholesterolemia Impaired glucose tolerance R73.02 Aortic stenosis I35.0 Chest pain R07.[address]-7 Assessment Billing - LANE-7 Assessment Tool: LANE-7 Assessment 34502 ([id number]) PHQ-9 - 62411 - PHQ-9 Billing: Yes ([id number]) Assessment & Plan Assessment & Plan (1) Overweight (BMI 25.0-29.9): Code(s): E66.3 - Overweight Category: Medical Plan: Diet and exercise (2) Hypertension: Comment: Echo 55-60% grade 1 diastolic dysfunction mild May 2019 Code(s): I10 - Essential (primary) hypertension Category: Medical Qualifiers: Hypertension type: essential hypertension Qualified Code(s): I10 - Essential (primary) hypertension Plan: Continue with blood pressure medication. Decrease salt intake and exercise on lisinopril 40 mg once a day nifedipine 90 mg once a day (3) Hyperlipidemia: Code(s): E78.5 - Hyperlipidemia, unspecified Category: Medical Qualifiers: Hyperlipidemia type: pure hypercholesterolemia Qualified Code(s): E78.00 - Pure hypercholesterolemia, unspecified Plan: Avoid fried foods, chicken skin, eggs, butter margarine, pastries and meat. Be it pork or beef they have a lot of cholesterol LDL goal of less than 100 and triglyceride of less than 150 on atorvastatin 40 mg once a day (4) Impaired glucose tolerance: Code(s): R73.02 - Impaired glucose tolerance (oral) Category: Medical Plan: Decrease the amount of carbohydrate intake, pasta, bread, rice and potatoes are all sugar and that is aside from all the sweet stuff, remember that fruits are good but they are Sweet also. (5) Aortic stenosis: Comment: 05/2019, April 2022 1.54 cm2, April 2023 1.47, April 2024 1.6 Code(s): I35.0 - Nonrheumatic aortic (valve) stenosis Category: Medical Plan: Continue to monitor echocardiogram last done in April 2024 (6) Chest pain: Code(s): R07.9 - Chest pain, unspecified Category: Medical Plan History of Present Illness The patient is an 84-year-old male presenting with exertional chest pain as the primary concern. Approximately one month ago, the patient began experiencing more noticeable chest pains during physical activity, specifically while walking, that are relieved upon rest. This felix a change in his long-standing history of periodic chest discomfort, indicating a potential progression of underlying cardiovascular issues. The patient's medical history includes essential hypertension, hypercholesterolemia, impaired glucose tolerance, and mild to moderate aortic stenosis, managed with medications including lisinopril, nifedipine, atorvastatin, and aspirin. Regular monitoring has maintained LDL cholesterol at 71 mg/dL. His last comprehensive laboratory evaluation demonstrated normal blood counts and metabolic panels. An echocardiogram conducted in April 2024 showed an ejection fraction of 60-65% with impaired relaxation and maintained aortic valve area at 1.6 cm?, indicating stable but notable stenosis. His longstanding left bundle branch block necessitates specialized approach in assessing exertional symptoms. Given the recent onset of exertional chest pain, further investigation into coronary artery disease is imperative, particularly considering the patient's history. The continuation of current cardiovascular management and booking of stress imaging is discussed. Health Maintenance - Regular monitoring of hypercholesterolemia with LDL cholesterol goal of less than 100 mg/dL. - Management of impaired glucose tolerance and monitoring of blood sugar levels to evaluate progression toward diabetes. - Annual echocardiogram for monitoring cardiac function and aortic stenosis. - Continuous use of high-intensity statin therapy and low-dose aspirin for cardiovascular risk reduction. - Blood pressure management with lisinopril and nifedipine. Social History - Engages in regular walking exercise. - Recent travel to [place] noted and onset of significant exertional chest pain during this period. Review of Systems - Cardiovascular: Reports chest pain during walking, relieved by rest. - Denies shortness of breath with exertion. - Denies dizziness or palpitations. - Gastrointestinal: Denies active constipation complaints. - Musculoskeletal: Denies joint pains or swelling at present. Physical Exam Results - Labs: November 13 blood work showed normal counts, electrolytes, renal function; elevated blood sugar at 120 mg/dL; Hemoglobin A1c at 5.8; LDL at 71 mg/dL. - Tests: April 2024 echocardiogram with EF 60-65%, mild to moderate aortic stenosis, impaired relaxation, aortic valve area 1.6 cm?. - PSA: Normal. - Vitamin B12, vitamin D, folic acid, and thyroid findings within normal limits. Plan In light of the patient's recent exertional chest pain, distinct from prior patterns, further investigation to discern underlying coronary artery disease is crucial. Coordination for a specialized cardiologic evaluation and stress test is prioritized due to complications from his left bundle branch block. Current antihypertensive and statin regimens will continue, ensuring management of cardiovascular risk factors remains optimal. Reassessment of glucose levels at subsequent evaluations remains necessary. Updates on echocardiographic findings of aortic stenosis will continue at standard intervals unless symptoms dictate earlier intervention. Patient was informed and verbally consented to the use of an ambient scribe for clinic note documentation during this visit. Discussion Notes I discussed the potential increase in risk for coronary artery disease as indicated by recent exertional chest pain, distinguishing it from his long-standing angina observation. There was a clear emphasis on the necessity of further cardiac evaluation, including nuclear stress testing, given his pre-existing left bundle branch block. The risks of unmanaged coronary artery disease were highlighted, as well as benefits of continued pharmacologic management. The importance of adhering to his current medication regimen for blood pressure and cholesterol was reiterated, with a focus on maintaining glucose levels within acceptable range. Urgent referral to Dr. Medina was initiated to streamline further evaluation and avoid delays. Patient Instructions - Continue current medications: lisinopril, nifedipine, atorvastatin, aspirin as prescribed. - Monitor for any increase in frequency or severity of chest pain and report immediately. - Await contact from cardiology for scheduled stress testing and further evaluation. - Maintain exercise routine but modify intensity as necessary to avoid provoking chest pain. - Follow recommendations for monitoring blood sugar and cholesterol levels. - Report any new or worsening symptoms promptly. - Keep upcoming follow-up appointments for monitoring and management. Orders: Orders NM cardiolite stress test Today R07.9 - Chest pain, unspecified CA lexiscan stress w edmond Today R07.9 - Chest pain, unspecified XR chest 2V Today R07.9 - Chest pain, unspecified Referrals Cardiology Referral R07.9 - Chest pain, unspecified
--- OUTSIDE RECORDS SUMMARY | 2024-11-20 08:32 | XMS_ITS | Patient Health Record ---
Author Organization [facility] Address [address] [place] [address] ALESSANDRA Harley [address] Care Team Providers Care Machine Presser Name Role Phone Siva Lawrence Primary Care Provider Armand Arteaga Unavailable [phone] Reason For Referral No Information Plan Of Treatment No Information Insurance Providers Payer Name Payer Address Payer Phone Subscriber Number Group Number Insured Name Patient Relationship to Insured Coverage Start Date Coverage End Date Medicare National [employer] [address] [facility] [place] [address] [id number] Jayant Griffiths Self - patient is the insured [facility] [address] [place] [id number] Jayant Griffitsh Self - patient is the insured
--- OUTSIDE RECORDS SUMMARY | 2024-11-20 08:32 | XMS_ITS | Data Portability ---
Author Organization [facility] Address [address] [place] [address] Assessment Encounter Date Assessment Date Assessment LastModified by Organization Details LastModified Time 09/12/2023 09/12/2023 Patient was measured for shoes 8.5 4E (wide) Suggested new shoes and visiting [id number] Nails are thick and dystrophic, suggest topical medication for infection [id number] Not available 09/12/2023 12:48:38 10/10/2023 10/10/2023 Patient was measured for shoes 8.5 4E (wide) last visit. He has since purchase new wider shoes Nails are thick and dystrophic, suggest topical medication for infection, does not wish to treat at this time. [email or web address] Not available 10/10/2023 09:30:15 Plan of Treatment Reminders Order Date Submit Date Provider Last Modified By Organization Details Last Modified Time Details Appointments None recorded. Lab None recorded. Referral None recorded. Procedures None recorded. Surgeries None recorded. Imaging XR, foot, 3 or more view 2023 024 [email or web address] [facility], [address] [place], [address], 12:48:39 Medication Orders Nail Fungus Compound: Itraconazo le, Ibuprofen, DMSO Nail Solution 2023 024 [facility], [address] [place] [address], [place], [address], 09:22:04 Patient TargetsNo targets recorded. Patient InstructionsNo [...] more view No observ ation record ed. [email or web address] [facility] [address] [place], [address], 09/12/2023 12:48:02 Result Notes None recorded. Problems Name Problem SNOMED Code Status Onset Date Resolution Date Notes Provider Name and Address Organization Details Recorded Time Onychomycos is of toenails 131377561 Active 2023 JEANETTE TENORIO DPM [address] [place] [address], [place], [address], [facility] 4 09:03:05 Bursitis of right foot 6803722119531 9108 Active 2023 JEANETTE TENORIO DPM [address] [place] [address], [place], [address], [facility] 4 09:25:46 Problem Notes None recorded. Procedures Surgical History Date Name Laterality Status Provider Name and Address Organization Details Recorded Time 4 G0127 Dystrophic Nail Trimming completed JEANETTE TENORIO DPM [address] [place] [address], [address], [facility] 10/10/2023 09:17:03 4 Trigger Point Injection: single or multiple completed JEANETTE TENORIO DPM [address] [place] [address], [address], [facility] 09/12/2023 09:25:18 Imaging Results Imaging Date Name Status LastModified by Organiz ation Details LastModified Time 09/12/2023 XR, foot, 3 or more view completed Information not available 09/12/2023 10:04:31 09/12/2023 XR, foot, 3 or more view completed Information not available 09/12/2023 10:04:32 09/12/2023 XR, foot, 3 or more view completed [email or web address] [facility] [address] [place], [address], 09/12/2023 12:48:02 Procedure Notes None recorded. Medical Equipment None Reported. Allergies Allergen ID Allergen Name Allergen Category Reaction Reaction Severity Criticality Documentation Date Start Date Code Code System Note Provider Name and Address Organization Details Recorded Time 795206 amoxicill in medicatio n Not available Not available Not available 09/12/2023 723 [facility] 08[facility]13 Medications Name Sig Start Date Stop [...] Updated DateTime 09/12/2023 167.64 cm 29.1 kg/m2 93303.63 g Latoya Gallardo [facility] 09/12/2023 08:39:44 Date Recorded Body height Provider Name an d Address Organization Details Last Updated DateTime 10/10/2023 167.64 cm Latoya Gallardo [facility] 12/2023 08:05:50 Social History None recorded. Functional Status None recorded. Mental Status None recorded. Family History Nothing Reported. Medical History No medical history recorded. Past Encounters Encounter ID Performer Location Encounter Start Date Encounter Closed Date Diagnosis/Indication Diagnosis SNOMED-CT Code Diagnosis ICD10 Code Diagnosis Note [id number] JEANETTE TENORIOCORNELL [facility] [address] [place] [address] 09/12/2023 08:11:08 09/12/2023 09:21:56 Onychomycosis of toenails 110039193 B35.1 The patient was educated about nail [...] the softest. Bursitis o f right foot 5476791149 7749589 M77.51 right fifth digit bursitis. Secondary to [...] spaces. hammertoes noted to right 1-5 toes#}} [id number] JEANETTE TENORIO DPM [facility] [address] [place] [address] 10/10/2023 07:59:37 10/10/2023 08:13:59 Onychomycosis of toenails 916053849 B35.1 The patient was educated about nail [...] this time Bursitis o f right foot 3461093259 1214547 M77.51 ImprovedCo ntniue to wear larger shoes. Health Concerns Section Related Observation LastModified by Organization Detai ls LastModified Time None Recorded Concern Status LastModified by Organization Details LastModified Time None Recorded Advance Directives Directive None Recorded Payers Encounter Date Sequence Insurance Name Policy Number Policy Heard Covered Member ID Heard Member ID Guarantor Name 09/12/2023 1 [place] [id number] Jayant Bailey [place] [id number] Jayant Zumbrota 09/12/2023 2 [facility] [employer] - PLAN 1 (MEDICARE SUPPLEMENT) [id number] 1 Jayant R Aye [id number] Jayant Aye 10/10/2023 1 [place] [id number] Jayant R Aye [id number] Jayant Griffiths 10/10/2023 2 [facility] - PLAN 1 (MEDICARE SUPPLEMENT) [id number] 1 Jayant Bailey [place] [id number] Jayant Aye Notes Date Note Type Note Provider Name and Address Organization Details Recorded Time 09/12/2023 text/html Patient likes to walk an hour a day, and is normally wearing sketchers. Now when he goes on walks he has right fifth digit pain. He does not know how to treat it at home. Has a prepress operator at home in [place]. He comes to [place] in the winter. JEANETTE TENORIO DPM [address] [place], [address], [facility] 09/12/2023 12:51:23 10/10/2023 text/html Patient likes to walk an hour a day, and is normally wearing sketchers. Now when he goes on walks he has right fifth digit pain. He does not know how to treat it at home. Has a prepress operator at home in [place]. He comes to [place] in the winter. pt is here for a [facility] an follow o for right foot pain Patient likes to walk an hour a day, and is normally wearing sketchers. Now when he goes on walks he has right fifth digit pain. He does not know how to treat it at home. Has a prepress operator at home in [place]. He comes to [place] in the winter. JEANETTE TENORIO DPM [address] [place], [address], [facility] 10/10/2023 09:30:54
[2024-11-20 08:33] VITALS: BP 130/70; PULSE 72; O2SAT 95; BMI 29.9
--- OUTSIDE RECORDS SUMMARY | 2024-11-20 08:33 | XMS_ITS ---
Author Organization [facility] Address [address] [place] [address] Care Team Providers Care Television Audio Engineer Name Role Phone Siva Lawrence Primary Care Provider Armand Arteaga [phone] REASON FOR VISIT Cancel Encounters Encounter Location Date Provider Diagnosis [facility] [address] [place] [address] 07/20/2023 Armand Lay Plan Of Treatment No Information Progress Notes * Avelina ALATORREOB: (83 yo M)Acc No.[id number]:07/20/2023 Patient:?Jayant Alatorre :1940???Age:83 Y???Sex:Male Address:[address] [place] [address] * true * Date:? Generated for Printi ng/Fayusrag/eTransmitting on:?11/20/2024 08:32 AM EDT
--- OUTSIDE RECORDS SUMMARY | 2024-11-20 08:33 | XMS_ITS ---
Author Organization [facility] Address [address] [place] [id number] Care Team Providers Care Comprehensive Advisor Name Role Phone Siva Lawrence Primary Care Provider Armand Arteaga [phone] Encounters Encounter Location Date Provider Diagnosis [facility] [address] [place] [address] 11/15/2023 Armand Lay Plan Of Treatment No Information Progress Notes * Avelina ALATORREOB: (84 yo M)Acc No.[id number]:11/15/2023 Progress Notes Patient:?CELI Jayant Provider:?Armand Lay DPM [...] Lay DPM Date:? 024 Generated for Lavonne toussaint/Fayusrag/eTransmitting on:?11/20/2024 08:33 AM EDT
--- OUTSIDE RECORDS SUMMARY | 2024-11-20 08:33 | XMS_ITS ---
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 Generated for Printi ng/Faxing/eTransmitting on:?11/20/2024 08:33 AM EDT
== END 2024-11-20 08:55 | disposition home or self-care (01) ==
LOC: HO.HMCH 08:22
PROVIDERS: PCP Internal Medicine; Visit Provider Internal Medicine
DX: E66.3 Overweight (principal); I10 Essential (primary) hypertension; E78.00 Pure hypercholesterolemia, unspecified; R73.02 Impaired glucose tolerance (oral); I35.0 Nonrheumatic aortic (valve) stenosis; R07.9 Chest pain, unspecified

== ENCOUNTER → 2024-11-20 08:22 | Outpatient (BNVA) | payer MEDICARE, OTHER, SELFPAY | PROVIDERS: PCP Internal Medicine; Visit Provider Internal Medicine | DX: E66.3 Overweight (principal); Z68.29 Body mass index [BMI] 29.0-29.9, adult; I10 Essential (primary) hypertension; E78.00 Pure hypercholesterolemia, unspecified; R73.02 Impaired glucose tolerance (oral); I35.0 Nonrheumatic aortic (valve) stenosis; R07.9 Chest pain, unspecified; Z79.899 Other long term (current) drug therapy | CPT/HCPCS: 96127; 99212 ==

== ENCOUNTER 2024-11-27 09:17 | Outpatient (AMB) | payer MEDICARE, OTHER, SELFPAY ==
[2024-11-27 09:21] VITALS: BP 126/68; PULSE 72; BMI 29.9
--- NOTE | 2024-11-27 09:21 | A.OFFVIS_ITS ---
Vital Signs 11/27/24 09:21 Height 5 ft 6 in Weight 185 lb BMI 29.9 BP 126/68 Blood Pressure Location Lt brachial Position Sitting Pulse 72 Pulse Source Monitor Intake Visit Reasons: urgent req from Po/ chest pain increasing Allergies amoxicillin [AMOXICILLIN] Allergy (Unknown, Verified 05/16/24 09:08) SEVERE ITCHING Medication List - Last Reconciled 11/27/24 by Ayaan Romero MD aspirin (Adult Low Dose Aspirin) 81 mg PO DAILY atorvastatin 40 mg PO DAILY 90 days cyanocobalamin (vitamin B-12) 1,000 mcg PO DAILY lisinopril 40 mg PO DAILY nifedipine ER 90 mg PO DAILY 90 days sildenafil 100 mg PO DAILY PRN HPI Comments Details: Jayant comes for follow-up for an urgent visit. Patient says for about a month he has been noticing chest pain with exertion. He suddenly when he walks longer distances gets left-sided precordial chest heaviness pressure. He would not pay much he had longstanding chest pain although this is different. He said when he plays golf and walks short distances he does not get those chest pains. However the pain is consistent. He usually stops when he gets this discomfort and the symptoms go away in 5 minutes. Sometimes he can walk through the dis comfort and symptoms improve. He has not had any other associated symptoms of shortness of breath, orthopnea, PND. No lightheadedness, syncope. No symptoms at rest. He has been taking all his medications regularly. Echocardiogram last April at shown [id number] aortic stenosis. [facility] Medical History Diverticulosis Cataract Inguinal hernia Otitis externa Rt flank pain Hematoma and contusion Bicipital tendinitis of right shoulder Painful arc syndrome of right shoulder Obesity (BMI 30.0-34.9) Left bundle branch block Aortic stenosis Cataracts, bilateral Shingles Erectile dysfunction Left renal stone Osteoarthritis Impaired glucose tolerance Chronic constipation Hyperlipidemia Hypertension Surgical History History of arthroplasty of left knee History of total right knee replacement History of left inguinal hernia repair Social History Housing: House Alcohol intake: current Alcohol intake frequency: 0-2 drinks per day Patient Tobacco Use Status: Former Tobacco user Tobacco use type: Cigarette Years Smoked: quit 22 years old e-Cigarette/Vaping Use: Never Used Second Hand Smoke Exposure: No service: Yes ([employer]) Current occupational status: retired Cognitive needs: No Hearing needs: No Vision needs: Yes Review of Systems Const Denies weakness ENT Denies dizziness Card Denies chest pain, Reports chest pain with activity, Denies syncope, Denies rapid heart rate, Denies pedal edema, Denies edema, Denies leg edema, Denies lightheadedness, Denies palpitations, Denies dyspnea, Denies dyspnea on exertion and Denies orthopnea Resp Denies cough, Denies dyspnea and Denies dyspnea on exertion GI Denies hematochezia and Denies change in stool character Musc Denies abnormal gait, Denies muscle cramps, Denies muscle weakness, Denies numbness, Denies radiating pain into limb and Denies tingling Neuro Denies abnormal gait, Denies dizziness, Denies syncope, Denies numbness, Denies tingling and Denies weakness Endo Denies palpitations Physical Exam Vital Signs: Last Vital Signs Pulse 72 11/27/24 09:21 BP 126/68 11/27/24 09:21 BMI result Body Mass Index 29.9 Const General: cooperative, comfortable, alert, awake and well groomed Nutritional Appearance: overweight Orientation/consciousness: patient oriented x3 Limitations: no limitations Neck Neck: Yes trachea midline, Yes supple and Yes no JVD Resp Effort & Inspection: normal respiratory effort Auscultation: clear to auscultation bilaterally Cardio Jugular venous distension: no JVD Palpation: normal PMI Rate: regular rate Rhythm: abnormal rhythm with ectopic beats Heart sounds: S1 normal heart sound present, S2 normal heart sound present, no click, no gallops and Murmur heart sound present systolic mid, decrescendo, crescendo and soft Peripheral pulses: Peripheral pulses 2+ throughout GI Auscultation: normal bowel sounds Neuro General: patient oriented x3 and no focal motor deficits Extrem General: Yes no clubbing, cyanosis or edema Psych Appearance: grossly normal Office Procedures EKG Details: EKG shows normal sinus rhythm with PACs with left bundle branch block [id number], Complete Assessment & Plan Assessment & Plan (1) Exertional chest pain: Code(s): R07.9 - Chest pain, unspecified Category: Medical Plan: Exertional chest pain in this elderly gentleman with multiple risk factors highly concerning for obstructive coronary artery disease. His symptoms only at exertion. We discussed about further options for diagnosis. I would suggest him to undergo cardiac catheterization to evaluate for coronary anatomy as he has high risk for underlying obstructive CAD. This was discussed with him. We discussed the risks, benefits, alternatives to the procedure. He understands and agrees. We discussed about pursuing his usual lifestyle and if he gets progressive symptoms and/or symptoms at rest to seek emergency care. I have taken the liberty to start him on metoprolol 25 mg daily to reduce myocardial oxygen demand. Also prescribe him sublingual nitroglycerin to use as need be. I have advised him to stop his sildenafil therapy at this point time. Continue aspirin as well as high-intensity statin therapy. Possible outcomes related to cardiac catheterization was discussed with him. He understands and agrees. (2) Aortic stenosis: Comment: 05/2019, April 2022 1.54 cm2, April 2023 1.47, April 2024 1.6 Code(s): I35.0 - Nonrheumatic aortic (valve) stenosis Category: Medical Plan: Aortic stenosis which appears to be moderate by clinical exam. Will continue to monitor and also check during cardiac catheterization yesterday hemodynamic significance. If he requires surgical revascularization for his coronary disease may require aortic valve replacement at the same time. Continue aspirin therapy. Continue management as above. Will follow up in the clinic after cardiac catheterization. Thank you for allowing me to partake in his care Orders: Orders Cardiac Cath LT w PCI 2 Weeks R07.9 - Chest pain, unspecified Prothrombin Time INR Today R07.9 - Chest pain, unspecified Basic Metabolic Panel Today R07.9 - Chest pain, unspecified Complete Blood Count no Diff Today R07.9 - Chest pain, unspecified Medications: New metoprolol succinate ER (Toprol XL) 25 mg PO DAILY 30 tabs 2RF nitroglycerin (Nitrostat) do not exceed 3 doses per episode 0.4 mg sublingual Q5M PRN 20 tabs 1RF chest pain Discontinued sildenafil administer 30 minutes to 4 hours before activity Discontinued Reason: Doctor's Order 100 mg PO DAILY PRN 20 tabs 46RF sexual activity N52.9 - Male erectile dysfunction, unspecified Coding Level of Care Code Est Pt Level 4 (95383) Complex EM visit Add On G2211 Diagnoses Exertional chest pain R07.9 Aortic stenosis I35.0 CPT Codes EKG - CPT: 63608-Fcnpcafofkgtantfl, Complete ([id number])
--- OUTSIDE RECORDS SUMMARY | 2024-11-27 10:11 | XMS_ITS | Data Portability ---
Author Organization [facility] Address [address] [place] [address] Assessment Encounter Date Assessment Date Assessment LastModified by Organization Details LastModified Time 09/12/2023 09/12/2023 Patient was measured for shoes 8.5 4E (wide) Suggested new shoes and visiting [email or web address] Nails are thick and dystrophic, suggest topical medication for infection [email or web address] Not available 09/12/2023 12:48:38 10/10/2023 10/10/2023 Patient was measured for shoes 8.5 4E (wide) last visit. He has since purchase new wider shoes Nails are thick and dystrophic, suggest topical medication for infection, does not wish to treat at this time. [email or web address] Not available 10/10/2023 09:30:15 Plan of Treatment Reminders Order Date Submit Date Provider Last Modified By Organization Details Last Modified Time Details Appointments None recorded. Lab None recorded. Referral None recorded. Procedures None recorded. Surgeries None recorded. Imaging XR, foot, 3 or more view 2023 024 [email or web address] [id number] [facility], [address] [place], [address], 12:48:39 Medication Orders Nail Fungus Compound: Itraconazo le, Ibuprofen, DMSO Nail Solution 2023 024 [facility], [address] [place] [address], [place], [address], 09:22:04 Patient TargetsNo targets recorded. Patient InstructionsNo [...] more view No observ ation record ed. [email or web address] [facility] [address] [place], [address], 09/12/2023 12:48:02 Result Notes None recorded. 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 Procedures Surgical History Date Name Laterality Status Provider Name and Address Organization Details Recorded Time 4 G0127 Dystrophic Nail Trimming completed JEANETTE TENORIO DPM [address] [place] [address], [address], [facility] 10/10/2023 09:17:03 4 Trigger Point Injection: single or multiple completed JEANETTE TENORIO DPM [address] [place] [address], [address], [facility] 09/12/2023 09:25:18 Imaging Results Imaging Date Name Status LastModified by Organiz ation Details LastModified Time 09/12/2023 XR, foot, 3 or more view completed Information not available 09/12/2023 10:04:31 09/12/2023 XR, foot, 3 or more view completed Information not available 09/12/2023 10:04:32 09/12/2023 XR, foot, 3 or more view completed [email or web address] [facility] [address] [place], [address], 09/12/2023 12:48:02 Procedure Notes None recorded. Medical Equipment None Reported. Allergies Allergen ID Allergen Name Allergen Category Reaction Reaction Severity Criticality Documentation Date Start Date Code Code System Note Provider Name and Address Organization Details Recorded Time 411001 amoxicill in medicatio n Not available Not available Not available 09/12/2023 723 [facility] Medications Name Sig Start Date [...] Updated DateTime 09/12/2023 167.64 cm 29.1 kg/m2 52594.63 g Latoya Gallardo [facility] 09/12/2023 08:39:44 Date Recorded Body height Provider Name an d Address Organization Details Last Updated DateTime 10/10/2023 167.64 cm Latoya Gallardo [facility] 12/2023 08:05:50 Social History None recorded. Functional Status None recorded. Mental Status None recorded. Family History Nothing Reported. Medical History No medical history recorded. Past Encounters Encounter ID Performer Location Encounter Start Date Encounter Closed Date Diagnosis/Indication Diagnosis SNOMED-CT Code Diagnosis ICD10 Code Diagnosis Note [id number] JEANETTE TENORIOCORNELL [facility] [address] [place] [address] 09/12/2023 08:11:08 09/12/2023 09:21:56 Onychomycosis of toenails 688629409 B35.1 The patient was educated about nail [...] the softest. Bursitis o f right foot 5616717013 8127886 M77.51 right fifth digit bursitis. Secondary to [...] spaces. hammertoes noted to right 1-5 toes#}} [id number] JEANETTE TENOIRO DPM [facility] [address] [place] [address] 10/10/2023 07:59:37 10/10/2023 08:13:59 Onychomycosis of toenails 727830253 B35.1 The patient was educated about nail [...] this time Bursitis o f right foot 3042177158 6961091 M77.51 ImprovedCo ntniue to wear larger shoes. Health Concerns Section Related Observation LastModified by Organization Detai ls LastModified Time None Recorded Concern Status LastModified by Organization Details LastModified Time None Recorded Advance Directives Directive None Recorded Payers Encounter Date Sequence Insurance Name Policy Number Policy Heard Covered Member ID Heard Member ID Guarantor Name 09/12/2023 1 [place] [id number] Jayant Bailey Aye [id number] Jayant Paterson 09/12/2023 2 [facility] [employer] - PLAN 1 (MEDICARE SUPPLEMENT) [id number] Jayant R Aye [id number] Jayant Aye 10/10/2023 1 [place] [id number] Jayant R Aye [id number] Jayant Griffiths 10/10/2023 2 [facility] - PLAN 1 (MEDICARE SUPPLEMENT) [id number] Jayant Bailey [place] [id number] Jayant Aye Notes Date Note Type Note Provider Name and Address Organization Details Recorded Time 09/12/2023 text/html Patient likes to walk an hour a day, and is normally wearing sketchers. Now when he goes on walks he has right fifth digit pain. He does not know how to treat it at home. 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 He comes to [place] in the winter. JEANETTE TENORIO DPM [address] [place], [address], [facility] 09/12/2023 12:51:23 10/10/2023 text/html Patient likes to walk an hour a day, and is normally wearing sketchers. Now when he goes on walks he has right fifth digit pain. He does not know how to treat it at home. 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 He comes to [place] in the winter. pt is here for a [facility] an follow o for right foot pain Patient likes to walk an hour a day, and is normally wearing sketchers. Now when he goes on walks he has right fifth digit pain. He does not know how to treat it at home. 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 He comes to [place] in the winter. JEANETTE TENORIO DPM [address] [place], [address], [facility] 10/10/2023 09:30:54
--- OUTSIDE RECORDS SUMMARY | 2024-11-27 10:11 | XMS_ITS | Patient Health Record ---
[facility] Address [address] [place] [address] ALESSANDRA Harley [address] Care Team Providers Care Strip Cutter Name Role Phone Siva Lawrence Primary Care Provider Armand Arteaga Unavailable [phone] Reason For Referral No Information Plan Of Treatment No Information Insurance Providers Payer Name Payer Address Payer Phone Subscriber Number Group Number Insured Name Patient Relationship to Insured Coverage Start Date Coverage End Date Medicare National [employer] [address] [place] [address] [id number] Jayant Griffiths Self - patient is the insured [facility] [address] [place] [id number] [phone] [id number] Jayant Griffiths Self - patient is the insured
--- OUTSIDE RECORDS SUMMARY | 2024-11-27 10:12 | XMS_ITS ---
Author Organization [facility] Address [address] [place] [address] Care Team Providers Care Print Finishing Worker Name Role Phone Siva Lawrence Primary Care Provider Armand Arteaga [phone] REASON FOR VISIT Cancel Encounters Encounter Location Date Provider Diagnosis [facility] [address] [place] [address] 07/20/2023 Armand Lay Plan Of Treatment No Information Progress Notes * Avelina ALATORREOB: (83 yo M)Acc No.[id number]:07/20/2023 Patient:?Jayant Alatorre :1940???Age:83 Y???Sex:Male Address:[place] [address] * true * Date:? Generated for Printi ng/Fayusrag/eTransmitting on:?11/27/2024 10:12 AM EDT
--- OUTSIDE RECORDS SUMMARY | 2024-11-27 10:12 | XMS_ITS ---
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 Generated for Printi ng/Fayusrag/eTransmitting on:?11/27/2024 10:12 AM EDT
--- OUTSIDE RECORDS SUMMARY | 2024-11-27 10:12 | XMS_ITS ---
Author Organization [facility] Address [address] [place] [address] Care Team Providers Care Dance Historian Name Role Phone Siva Lawrence Primary Care Provider Armand Arteaga [phone] Encounters Encounter Location Date Provider Diagnosis [facility] [address] [place] [address] 11/15/2023 Armand Lay Plan Of Treatment No Information Progress Notes * Avelina ALATORREOB: (84 yo M)Acc No.[id number]:11/15/2023 Progress Notes Patient:?CELI Jayant Provider:?Armand Lay DPM [...] DPM Date:? 024 Generated for Lavonne toussaint/Juli/eTransmitting on:?11/27/2024 10:12 AM EDT
== END 2024-11-27 09:52 | disposition home or self-care (01) ==
LOC: HO.HCS 09:18
PROVIDERS: PCP Internal Medicine; Visit Provider Internal Medicine Cardiovascular Disease
DX: R07.9 Chest pain, unspecified (principal); I35.0 Nonrheumatic aortic (valve) stenosis
CPT/HCPCS: 93010; 99214; G2211

== ENCOUNTER 2024-11-27 09:17 | Outpatient (REF) | payer MEDICARE, OTHER, SELFPAY ==
--- NOTE | ~2024-11-27 | XR_ITS ---
CLINICAL HISTORY: R07.9 - Chest pain, unspecified 2 view chest x-ray. Comparison: None Findings: The lungs are adequately expanded. No focal consolidation. No effusion or pneumothorax. Cardiac and mediastinal contours are within normal limits. No acute osseous abnormality Impression: No acute process. This document has been electronically signed by: Uziel Martin MD on 11/28/2024 19:23:00
[2024-11-27 11:56] LABS: Hemoglobin 16.1 g/dl (14.0-18.0); Mean Corpuscular HGB Conc 34.3 g/dl (31.0-36.0); Mean Corpuscular Hemoglobin 32.1 pg (27.0-33.0); Mean Corpuscular Volume 93.6 fL (80.0-98.0); Mean Platelet Volume 10.7 fL (9.4-12.4); Platelet Count 183 X10*3/uL (160-400); Red Blood Count 5.02 X10*6/uL (4.60-5.80); Red Cell Distribution Width 14.5 % (11.0-16.0); White Blood Count 9.2 X10*3/uL (4.8-10.8)
[2024-11-27 12:03] LABS: Prothrombin Time 11.6 SEC (10.9-12.4)
[2024-11-27 12:22] LABS: Anion Gap 12 (12-20); Blood Urea Nitrogen 22 mg/dL (9-16); Calcium 9.7 mg/dL (8.4-10.2); Carbon Dioxide 27 mmol/L (22-29); Chloride 106 mmol/L (96-108); Estimated Glomerular Filt Rate > 60; Glucose Random 88 mg/dL (60-115); Potassium 4.8 mmol/L (3.3-5.1); Sodium 140 mmol/L (135-145)
== END 2024-11-27 09:18 | disposition home or self-care (01) ==
LOC: HO.LAB 09:17
PROVIDERS: Absent Provider Internal Medicine; PCP Internal Medicine; Visit Provider Internal Medicine Cardiovascular Disease
DX: R07.9 Chest pain, unspecified (principal); I35.0 Nonrheumatic aortic (valve) stenosis
CPT/HCPCS: 36415; 71046; 80048; 85027; 85610; 93005; 99212

== ENCOUNTER → 2024-11-27 10:33 | Outpatient (BNV) | payer MEDICARE, OTHER, SELFPAY | PROVIDERS: Absent Provider Internal Medicine; PCP Internal Medicine; Visit Provider Radiology Vascular & Interventional Radiology | DX: R07.9 Chest pain, unspecified (principal) | CPT/HCPCS: 71046 ==

== ENCOUNTER → 2024-12-12 23:59 | Outpatient (BNV) | payer MEDICARE, OTHER, SELFPAY | PROVIDERS: PCP Internal Medicine; Visit Provider Internal Medicine Cardiovascular Disease | DX: I20.89 Other forms of angina pectoris (principal) | CPT/HCPCS: 93458; 99152 ==

== ENCOUNTER 2024-12-27 13:20 | Outpatient (AMB) | payer MEDICARE, OTHER, SELFPAY ==
--- OUTSIDE RECORDS SUMMARY | 2024-12-27 13:23 | XMS_ITS | Patient Health Record ---
Author Organization [facility] Address [address] [place] [address] [place]AN[place]A Har[place] [address] Care Team Providers Care Sheet Metal Former Name Role Phone Siva Lawrence Primary Care Provider Armand Arteaga Unavailable [phone] Reason For Referral No Information Plan Of Treatment No Information Insurance Providers Payer Name Payer Address Payer Phone Subscriber Number Group Number Insured Name Patient Relationship to Insured Coverage Start Date Coverage End Date Medicare National Govt Sv[employer] Inc [address] [place] [address] [id number] Jayant Griffiths Self - patient is the insured [facility] [address] [place] [id number] Jayant Griffiths Self - patient is the insured
--- NOTE | 2024-12-27 13:28 | A.OFFVIS_ITS ---
Vital Signs 12/27/24 13:31 Height 5 ft 6 in Weight 188 lb 4.396 oz BMI 30.4 BP 122/62 Blood Pressure Location Lt brachial Position Sitting Pulse 64 Pulse Source Pulse Oximeter Intake Visit Reasons: Follow up post cardiac cath Intake Note: f/up s/p cath- Weaver Dobby Loom Required: No Accompanied by: Self / Same As Patient Allergies amoxicillin [AMOXICILLIN] Allergy (Unknown, Verified 05/16/24 09:08) SEVERE ITCHING Medication List - Last Reconciled 12/27/24 by Corwin Yepez NP aspirin (Adult Low Dose Aspirin) 81 mg PO DAILY atorvastatin 40 mg PO DAILY 90 days cyanocobalamin (vitamin B-12) 1,000 mcg PO DAILY lisinopril 40 mg PO DAILY nifedipine ER 90 mg PO DAILY 90 days nitroglycerin (Nitrostat) 0.4 mg sublingual Q5M PRN HPI Comments Details: This is an 84-year-old male patient coming in for a follow-up visit. Patient with a history of hypertension, hyperlipidemia, aortic stenosis, and left bundle branch block. Patient was previously seen for exertional chest pain for which he is now status post cardiac catheterization on 12/12/[address] Velez at [facility]. Patient reports that he has been having chronic chest pain with exertion as well as at rest since the age of [age] years old. He notes that he has been worked up multiple times with no etiology found. Patient was noticing that he was getting bothered with the chest pains recently and that it was changing a little bit and therefore was seen here for this. Today, patient reports that he has been having the ongoing chest pain with no change in it. He notes that he has tried everything from muscle relaxants in the past to NSAIDs. He notes that he has been taking extra-strength Tylenol recently and sometimes thinks it is getting better. Patient is otherwise denying any associated symptoms including exertional shortness of breath, palpitations, dizziness, orthopnea, PND, leg edema, presyncope, or syncope. Patient states that he has been compliant with all his medications. [facility] Medical History Diverticulosis Cataract Inguinal hernia Otitis externa Rt flank pain Hematoma and contusion Bicipital tendinitis of right shoulder Painful arc syndrome of right shoulder Obesity (BMI 30.0-34.9) Left bundle branch block Aortic stenosis Cataracts, bilateral Shingles Erectile dysfunction Left renal stone Osteoarthritis Impaired glucose tolerance Chronic constipation Hyperlipidemia Hypertension Surgical History S/P cardiac cath History of arthroplasty of left knee History of total right knee replacement History of left inguinal hernia repair Social History Housing: House Alcohol intake: current Alcohol intake frequency: 0-2 drinks per day Patient Tobacco Use Status: Former Tobacco user Tobacco use type: Cigarette Years Smoked: quit 22 years old e-Cigarette/Vaping Use: Never Used Second Hand Smoke Exposure: No service: Yes ([employer]) Current occupational status: retired Cognitive needs: No Hearing needs: No Vision needs: Yes Review of Systems Const Denies chills, Denies fatigue, Denies fever(s), Denies frequent falls, Denies weakness, Denies weight gain and Denies weight loss ENT Denies dizziness Card Reports chest pain, Reports chest pain with activity, Denies leg edema, Denies lightheadedness, Denies palpitations, Denies dyspnea and Denies dyspnea on ex ertion Resp Denies cough, Denies dyspnea and Denies dyspnea on exertion GI Denies hematochezia Musc Denies abnormal gait, Denies muscle weakness, Denies numbness, Denies radiating pain into limb and Denies tingling Neuro Denies abnormal gait, Denies dizziness, Denies frequent falls, Denies numbness, Denies tingling and Denies weakness Endo Denies fatigue and Denies palpitations Physical Exam Vital Signs: Last Vital Signs Pulse 64 12/27/24 13:31 BP 122/62 12/27/24 13:31 BMI result Body Mass Index 30.4 Const General: cooperative, healthy appearing, comfortable and no acute distress Orientation/consciousness: patient oriented x3 HEENT Head: Yes normal to inspection Neck Neck: Yes normal visual inspection, Yes trachea midline and Yes supple Chest Chest palpation & inspection: normal inspection of the chest Resp Effort & Inspection: normal respiratory effort Auscultation: clear to auscultation bilaterally, no crackles, no rales, no rhonchi and no wheezes Cardio Jugular venous distension: no JVD Palpation: normal PMI Rate: regular rate Rhythm: regular rhythm Heart sounds: S1 normal heart sound present, S2 normal heart sound present, no click, no gallops, Murmur heart sound present systolic at the left sternal border and at the right sternal border and no rubs Peripheral pulses: Peripheral pulses 2+ throughout GI Inspection: Yes normal to inspection Palpation (GI): Soft to palpation Auscultation: normal bowel sounds Skin General skin exam: no rashes or lesions noted Neuro General: patient oriented x3 Extrem General: Yes normal to inspection, No no pedal edema and No calf tenderness Psych Appearance: grossly normal Mental Status: mental status grossly normal Speech and movement: Normal speech and movement present Assessment & Plan Assessment & Plan (1) Status post cardiac catheterization: Code(s): Z98.890 - Other specified postprocedural states Plan: 12/12/2024-underwent a cardiac catheterization with Dr. Velez that showed no significant coronary artery disease with moderate gradient across the aortic valve at 22 mmHg. Continue statin therapy with an LDL goal less than 70. Continue lisinopril and nifedipine therapy. Patient has not noticed any change on the metoprolol and therefore we will stop it for now. (2) Chest pain: Code(s): R07.9 - Chest pain, unspecified Category: Medical Plan: As above. Since patient thinks that Tylenol extra-strength has been helping some, recommended trying Voltaren topical gel. Advised to seek ER care in case of persistent exertional chest pain not resolved with rest. (3) Aortic stenosis: Code(s): I35.0 - Nonrheumatic aortic (valve) stenosis Category: Medical Plan: 04/23/2024-echo study showed normal LV EF between 60-65% with impaired relaxation filling pattern, [id number] aortic stenosis with aortic valve area at 1.6 cm2. Continue baby aspirin therapy. Clinically stable and euvolemic. Patient has plans for repeat echocardiogram before his next visit. (4) Hyperlipidemia: Code(s): E78.5 - Hyperlipidemia, unspecified Category: Medical Qualifiers: Hyperlipidemia type: pure hypercholesterolemia Qualified Code(s): E78.00 - Pure hypercholesterolemia, unspecified Plan: As above. (5) Left bundle branch block: Code(s): I44.7 - Left bundle-branch block, unspecified Category: Medical Plan: Chronic left bundle branch block. Stable. (6) Hypertension: Comment: Echo 55-60% grade 1 diastolic dysfunction mild May 2019 Code(s): I10 - Essential (primary) hypertension Category: Medical Qualifiers: Hypertension type: essential hypertension Qualified Code(s): I10 - Essential (primary) hypertension Plan: Blood pressure today is well-controlled. Continue current regimen. Advised monitoring blood pressures at home and keeping a log of it. Ideally, blood pressure goal less than 130/80. Advised heart healthy diet, regular exercise, med compliance, stress medication strategies, and management of his vascular risk factors. Follow-up in 4 months. In the interim, patient will call the office with any change in symptoms or concerns. This note was generated using voice recognition software. While every effort has been made to ensure accuracy and proper computer software engineer, there may be occasional errors that could affect the content or meaning of the described symptoms. Medications: Discontinued metoprolol succinate ER (Toprol XL) Discontinued Reason: Patient no longer taking 25 mg PO DAILY 30 tabs 2RF Coding Level of Care Code Est Pt Level 4 (65798) Complex EM visit Add On G2211 Diagnoses Status post cardiac catheterization Z98.890 Chest pain R07.9 Aortic stenosis I35.0 Pure hypercholesterolemia E78.00 Hyperlipidemia type: pure hypercholesterolemia Left bundle branch block I44.7 Essential hypertension I10 Hypertension type: essential hypertension Time Spent (min) 33 Comment Time spent in reviewing the chart, test results, assessment, counseling and documentation.
[2024-12-27 13:31] VITALS: BP 122/62; PULSE 64; BMI 30.4
== END 2024-12-27 13:50 | disposition home or self-care (01) ==
LOC: HO.HCS 13:20
PROVIDERS: PCP Internal Medicine
DX: Z98.890 Other specified postprocedural states (principal); R07.9 Chest pain, unspecified; I35.0 Nonrheumatic aortic (valve) stenosis; E78.00 Pure hypercholesterolemia, unspecified; I44.7 Left bundle-branch block, unspecified; I10 Essential (primary) hypertension
CPT/HCPCS: 99214; G2211

== ENCOUNTER → 2024-12-27 13:20 | Outpatient (BNVA) | payer MEDICARE, OTHER, SELFPAY | PROVIDERS: PCP Internal Medicine | DX: I10 Essential (primary) hypertension (principal); I44.7 Left bundle-branch block, unspecified; R07.9 Chest pain, unspecified; I35.0 Nonrheumatic aortic (valve) stenosis; E78.00 Pure hypercholesterolemia, unspecified; Z98.890 Other specified postprocedural states | CPT/HCPCS: 99212 ==

== ENCOUNTER 2025-02-06 10:37 | Outpatient (AMB) | payer MEDICARE, OTHER, SELFPAY ==
[2025-02-06 10:41] VITALS: BP 128/62
--- NOTE | 2025-02-06 10:41 | A.OFFPC_ITS ---
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 Required: No Accompanied by: Self / Same As Patient Allergies amoxicillin (AMOXICILLIN) Allergy (Unknown, Verified 02/06/25 10:46) SEVERE ITCHING Medication List - Last Reconciled 02/06/25 by Margaret Oviedo MD aspirin (Adult Low Dose Aspirin) 81 mg PO DAILY atorvastatin 40 mg PO DAILY 90 days cyanocobalamin (vitamin B-12) 1,000 mcg PO DAILY lisinopril 40 mg PO DAILY nifedipine ER 90 mg PO DAILY 90 days nitroglycerin (Nitrostat) 0.4 mg sublingual Q5M PRN Tobacco use date assessed: 11/20/24 Fall risk assessment: 1 Fall in past year Last assessed Fall Risk: 02/06/25 Dental Screening Dental Screen Date: 11/20/24 HPI HPI Comments History of Present Illness Details The patient is an 84-year-old male presenting with low back pain. The pain began a week ago following a fall where he missed a step on a bull ladder, impacting his head and lower back. He did not experience loss of consciousness, and his head is not painful, but the lower back pain continues, particularly with forward bending. The patient has a medical history of hypertension and pure hypercholesterolemia. [facility] Medical History (Updated 02/06/25 @ 10:54 by Margaret Oviedo MD) Diverticulosis Cataract Inguinal hernia Otitis externa Rt flank pain Hematoma and contusion Bicipital tendinitis of right shoulder Painful arc syndrome of right shoulder Obesity (BMI 30.0-34.9) Left bundle branch block Aortic stenosis Cataracts, bilateral Shingles Erectile dysfunction Left renal stone Osteoarthritis Impaired glucose tolerance Chronic constipation Hyperlipidemia Hypertension Surgical History S/P cardiac cath History of arthroplasty of left knee History of total right knee replacement History of left inguinal hernia repair Social History Housing: House Alcohol intake: current Alcohol intake frequency: 0-2 drinks per day Patient Tobacco Use Status: Former Tobacco user Tobacco use type: Cigarette Years Smoked: quit 22 years old e-Cigarette/Vaping Use: Never Used Second Hand Smoke Exposure: No service: Yes ([employer]) Current occupational status: retired Cognitive needs: No Hearing needs: No Vision needs: Yes Questionnaire PHQ-9 Over the last 2 weeks, how often have you been bothered by any of the following problems? 1. Little interest or pleasure in doing things: several days 2. Feeling down, depressed, or hopeless: not at all 3. Trouble falling or staying asleep, or sleeping too much: not at all 4. Feeling tired or having little energy: not at all 5. Poor appetite or overeating: not at all 6. Feeling bad about yourself - or that you are a failure or have let yourself or your family down: not at all 7. Trouble concentrating on things, such as reading the newspaper or watching television: not at all 8. Moving or speaking so slowly that other people could have noticed. Or the opposite - being so fidgety or restless that you have been moving around a lot more than usual: not at all 9. Thoughts that you would be better off or of hurting yourself in some way: not at all Total score: 1 Depression Screening Interpretation: Negative Depression Screening Done: Yes 24899 - PHQ-9 Billing: Yes Source: Developed by Drs. Dung Joel, Salina Diaz, Richard Bowden and colleagues, with an educational prince from [employer]. Thrive Questionnaire Date Thrive assessed: 11/20/24 I am a: Patient What is your living situation today?: I have a steady place to live Within the past 12 months, did the food you bought not last and you didn't have the money to get more?: Never true Within the past 12 months, did you worry whether your food would run out before you got money to buy more?: Never true Do you have trouble paying for medicines?: No Do you have trouble getting transportation to medical appointments?: No Do you have trouble paying your heating and electricity bill?: No Do you have trouble taking care of your child, family member or friend?: No Do you have trouble with day-to-day activities such as bathing, preparing meals, shopping, managing finances, etc.?: No Are you currently unemployed and looking for a job?: No Are you interested in more education?: I choose not to answer this question Please select the resources that you would like help with: None Currently or been in a relationship where the following occur: No concerns reported THRIVE Score: 0 AUDIT C Alcohol Use Questionnaire (AUDIT-C) 1. How often do you have a drink containing alcohol?: 2-3 times a week 2. How many drinks containing alcohol do you have on a typical day when you are drinking?: 1 or 2 3. How often do you have six or more drinks on one occasion?: Never Total Score: 3 LANE-[address] L[address]-7 Date LANE - 7 assessed: 11/20/24 Feeling nervous, anxious, or on edge: 0 = Not at all Not being able to stop or control worryin = Not at all Worrying too much about different things: 3 = Nearly every day Trouble relaxin = Several days Being so restless that it is hard to sit still: 0 = Not at all Becoming easily annoyed or irritable: 1 = Several days Feeling afraid as if something awful might happen: 1 = Several days Total LANE-7 score (0-4 normal; 5-9 mild; 10-14 moderate; 15-21 severe): 6 Source: Developed by Drs. Dung Joel, Salina Diaz, Richard Bowden and colleagues, with an educational prince from [employer]. LANE-[address] L[address]-7 Assessment Tool: LANE-7 Assessment 85387 Review of Systems Const All systems reviewed & are unremarkable except as noted in HPI and below Card Denies chest pain at rest, Denies chest pain with activity, Denies edema, Denies irregular heart rhythm, Denies claudication, Denies dyspnea, Denies dyspnea on exertion, Denies orthopnea, Denies paroxysmal nocturnal dyspnea and Denies slow heart rate Resp Denies cough, Denies dyspnea and Denies dyspnea on exertion GI Denies abdominal pain, Denies change in bowel habits, Denies excessive flatus, Denies nausea and Denies vomiting Musc Reports back pain Physical exam (Primary Care) Vital Signs: Last Vital Signs BP 128/62 02/06/25 10:41 BMI result Body Mass Index 30.0 Tobacco/Smoking Status: Tobacco use Status Tobacco use date assessed 11/20/24 02/06/25 10:44 Patient Tobacco Use Status Former Tobacco user 02/06/25 10:44 Tobacco use type Cigarette 02/06/25 10:44 e-Cigarette/Vaping Use Never Used 02/06/25 10:44 PHQ-9: PHQ-9 Score PHQ-9: Total score 1 02/06/25 10:49 Depression Screening Interpretation: Negative Thrive Assessment: Date of Thrive Assessment Date Thrive assessed 11/20/24 02/06/25 10:44 Currently or been in a relationship where the following occur: No concerns reported Resp Effort & Inspection: normal respiratory effort Auscultation: clear to auscultation bilaterally Cardio Jugular venous distension: no JVD Rate: regular rate Rhythm: regular rhythm Heart sounds: S1 normal heart sound present and S2 normal heart sound present Neuro General: no focal motor deficits Extrem General: Yes full ROM Coding Level of Care Code Est Pt Level 3 (58869) Complex EM visit Add On G2211 Diagnoses Lumbar pain M54.50 Essential hypertension I10 Hypertension type: essential hypertension Pure hypercholesterolemia E78.00 Hyperlipidemia type: pure hypercholesterolemia Additional Codes LANE-7 Assessment Billing - LANE-7 Assessment Tool: LANE-7 Assessment 32166 ([id number]) PHQ-9 - 11438 - PHQ-9 Billing: Yes ([id number]) Time Spent (min) 19 Assessment & Plan Assessment & Plan (1) Lumbar pain: Code(s): M54.50 - Low back pain, unspecified Category: Medical (2) Hypertension: Comment: Echo 55-60% grade 1 diastolic dysfunction mild May 2019 Code(s): I10 - Essential (primary) hypertension Category: Medical Qualifiers: Hypertension type: essential hypertension Qualified Code(s): I10 - Essential (primary) hypertension (3) Hyperlipidemia: Code(s): E78.5 - Hyperlipidemia, unspecified Category: Medical Qualifiers: Hyperlipidemia type: pure hypercholesterolemia Qualified Code(s): E78.00 - Pure hypercholesterolemia, unspecified Plan An x-ray of the lumbar spine is planned to evaluate for fractures or other issues resulting from the fall. Ibuprofen is advised for pain relief, limited to a week to minimize risks of bleeding and renal complications. Patient was informed and verbally consented to the use of an ambient scribe for clinic note documentation during this visit. Orders: Orders XR lumbar spine 2-3V Today M54.50 - Low back pain, unspecified Medications: New ibuprofen 800 mg PO Q8H PRN 21 tabs 0RF pain 7 days
--- OUTSIDE RECORDS SUMMARY | 2025-02-06 11:24 | XMS_ITS | Data Portability ---
Author Organization [facility] , [facility] Address [address] [place] [address] [place] [address] Assessment Encounter Date Assessment Date Assessment LastModified by Organization Details LastModified Time 09/12/2023 09/12/2023 Patient was measured for shoes 8.5 4E (wide) Suggested new shoes and visiting [id number] Nails are thick and dystrophic, suggest topical medication for infection [email or web address] Not available 09/12/2023 12:48:38 10/10/2023 10/10/2023 Patient was measured for shoes 8.5 4E (wide) last visit. He has since purchase new wider shoes Nails are thick and dystrophic, suggest topical medication for infection, does not wish to treat at this time. [email or web address] Not available 10/10/2023 09:30:15 Plan of Treatment Reminders Order Date Submit Date Provider Last Modified By Organization Details Last Modified Time Details Appointments None recorded. Lab None recorded. Referral None recorded. Procedures None recorded. Surgeries None recorded. Imaging XR, foot, 3 or more view 2023 024 [id number] [facility], [address] [place], [address], 12:48:39 Medication Orders Nail Fungus Compound: Itraconazo le, Ibuprofen, DMSO Nail Solution 2023 024 [facility], [address] [place] [address], [place], [address], 09:22:04 Patient TargetsNo targets recorded. Patient InstructionsNo [...] more view No observ ation record ed. [id number] [facility] [address] [place], [address], 09/12/2023 12:48:02 Result Notes None recorded. Problems Name Problem SNOMED Code Status Onset Date Resolution Date Notes Provider Name and Address Organization Details Recorded Time Onychomycos is of toenails 933123811 Active 2023 JEANETTE TENORIO DPM [address] [place] [address], [place], [address], [facility] 4 09:03:05 Bursitis of right foot 5537047853349 9108 Active 2023 JEANETTE TENORIO DPM [address] [place] [address], [place], [address], [facility] 4 09:25:46 Problem Notes None recorded. Procedures Surgical History Date Name Laterality Status Provider Name and Address Organization Details Recorded Time 4 G0127 Dystrophic Nail Trimming completed JEANETTE TENORIO DPM [address] [place] [address], [phone], [facility] 10/10/2023 09:17:03 4 Trigger Point Injection: single or multiple completed JEANETTE TENORIO DPM [address] [place] [address], [address], [facility] 09/12/2023 09:25:18 Imaging Results None recorded. Procedure Notes None recorded. Medical Equipment None Reported. Allergies Allergen ID Allergen Name Allergen Category Reaction Reaction Severity Criticality Documentation Date Start Date Code Code System Note Provider Name and Address Organization Details Recorded Time 937179 amoxicill in medicatio n Not available Not available Not available 09/12/2023 723 RxNorm Latoyakeyur Gallardo [facility] 08:40:13 Medications Name Sig Start Date Stop [...] Updated DateTime 09/12/2023 167.64 cm 29.1 kg/m2 91087.63 g Latoyakeyur Gallardo [facility] 09/12/2023 08:39:44 Date Recorded Body height Provider Name an d Address Organization Details Last Updated DateTime 10/10/2023 167.64 [facility] 08:05:50 Social History None recorded. Functional Status None recorded. Mental Status None recorded. Family History Nothing Reported. Medical History No medical history recorded. Past Encounters Encounter ID Performer Location Encounter Start Date Encounter Closed Date Diagnosis/Indication Diagnosis SNOMED-CT Code Diagnosis ICD10 Code Diagnosis Note [id number] CORNELL GOMEZ_[facility] [address] [place] [address] 09/12/2023 08:11:08 09/12/2023 09:21:56 Onychomycosis of toenails 255730670 B35.1 The patient was educated about nail [...] the softest. Bursitis o f right foot 2602860521 2854524 M77.51 right fifth digit bursitis. Secondary to shoes that are not large enough to accommodat e his foot. x-ray was taken three view of right foot. Patient was shielded. weight bearing, and denied possibilit y of . Reviewed x-rays with patient, explaining findings.1 . Soft tissue contour changes present. right lateral fifth met head swelling noted on xray 2. Radiolucen t breaks in the cortex are not present. 3. Bone Density is appropriat e for age and gender of the patient. 4. Alignment is noted to be well aligned. 5. Radiograph ic impression Deformity as follows: narrow jont spaces. hammertoes noted to right 1-5 toes [id number] CORNELL GOMEZ_[facility] [address] [place] [address] 10/10/2023 07:59:37 10/10/2023 08:13:59 Onychomycosis of toenails 780459394 B35.1 The patient was educated about nail [...] this time Bursitis o f right foot 5959874865 5437464 M77.51 ImprovedCo ntniue to wear larger shoes. Health Concerns Section Related Observation LastModified by Organization Detai ls LastModified Time None Recorded Concern Status LastModified by Organization Details LastModified Time None Recorded Advance Directives Directive None Recorded Payers Insurance Date Sequence Insurance Name Policy Number Policy Heard Covered Member ID Heard Member ID Guarantor Name 10/07/2023 1 [place] [id number] Jayant Griffiths [id number] Jayant Griffiths 10/07/2023 2 [facility] PLAN [facility] (MEDICARE SUPPLEMENT) [id number] Jayant Griffiths [id number] Jayant Griffiths Notes Date Note Type Note Provider Name and Address Organization Details Recorded Time 09/12/2023 text/html Patient likes to walk an hour a day, and is normally wearing sketchers. Now when he goes on walks he has right fifth digit pain. He does not know how to treat it at home. Has a rug clipper at home in [place]. He comes to [place] in the winter. JEANETTE TENORIO DPM [facility] [place], [address], [facility] 09/12/2023 12:51:23 10/10/2023 text/html Patient likes to walk an hour a day, and is normally wearing sketchers. Now when he goes on walks he has right fifth digit pain. He does not know how to treat it at home. Has a rug clipper at home in [place]. He comes to [place] in the winter. pt is here for [facility] an follow o for right foot pain Patient likes to walk an hour a day, and is normally wearing sketchers. Now when he goes on walks he has right fifth digit pain. He does not know how to treat it at home. Has a rug clipper at home in [place]. He comes to [place] in the winter. JEANETTE TENORIO DPM [address] [place], [address], [facility] 10/10/2023 09:30:54
--- OUTSIDE RECORDS SUMMARY | 2025-02-06 11:24 | XMS_ITS | Patient Health Record ---
Author Organization [facility] Address [address] [place] [address] Care Team Providers Care Supervisor Bakery Sanitation Name Role Phone Siva Lawrence MD Primary Care Provider Dung Newsome [phone] Reason For Referral No Information Medications Medication SIG (Take, Route, Frequency, Duration) Notes Start Date End Date Status Colyte w Flavor Packs 240 GM as directed Orally as directed for 1 day(s) 05/30/2015 Active Lisinopril 10 MG 1 tablet Orally Once a day Active Simvastatin 5 MG 1 tablet in the even ing Orally Once a day Active Aspirin 81 MG 1 tablet Orally Once a day Active amLODIPine Besylate 10 MG 1 tablet Orall y Once a day Active Problems Problem Type SNOMED Code ICD Code Onset Dates Problem Status W/U Status Risk Notes Problem 811726830 Encounter for screening for malignant neoplasm of colon (Z12.11) Active confirmed Problem 68737138 Preprocedural examination (Z01.818) Active confirmed Problem 472749350 Aspirin long-ter m use (Z79.82) Active confirmed Plan Of Treatment Future Test Test Name Order Date COLONOSCOPY 05/29/2015 Insurance Providers Payer Name Payer Address Payer Phone Subscriber Number Group Number Insured Name Patient Relationship to Insured Coverage Start Date Coverage End Date MEDICARE OF [employer] SARAH [address] [place] [id number] ARUNA ALATORRE Self - patient is the [facility] [address] [place] [address] [id number] ARUNA ALATORRE Self - patient is the insured Medical (General) History Medical History History ICD Code HTN colonoscopy 01-30-2004--neg e xcept for diverticulosis and internal hemorrhoids Hyperlipidemia Denies [place],DM,CVA,Lung disease,renal dise ase Surgical History Surgery Date(Month/Year) appendectomy
--- OUTSIDE RECORDS SUMMARY | 2025-02-06 11:24 | XMS_ITS | Patient Health Record ---
Author Organization [facility] Address [address] [place] [address] [place] [address] Care Team Providers Care Biomedical Service Engineer Name Role Phone Siva Lawrence Primary Care Provider Armand Arteaga Unavailable [phone] Reason For Referral No Information Plan Of Treatment No Information Insurance Providers Payer Name Payer Address Payer Phone Subscriber Number Group Number Insured Name Patient Relationship to Insured Coverage Start Date Coverage End Date Medicare National [employer] [address] [place] [address] [id number] Jayant Griffiths Self - patient is the insured [facility] [address] [place] [id number] Jayant Griffiths Self - patient is the insured
== END 2025-02-06 10:56 | disposition home or self-care (01) ==
LOC: HO.HMCH 10:37
PROVIDERS: PCP Internal Medicine; Visit Provider Internal Medicine
DX: M54.50 Low back pain, unspecified (principal); I10 Essential (primary) hypertension; E78.00 Pure hypercholesterolemia, unspecified

== ENCOUNTER → 2025-02-06 10:37 | Outpatient (BNVA) | payer MEDICARE, OTHER, SELFPAY | PROVIDERS: PCP Internal Medicine; Visit Provider Internal Medicine | DX: M54.50 Low back pain, unspecified (principal); I10 Essential (primary) hypertension; E78.00 Pure hypercholesterolemia, unspecified | CPT/HCPCS: 96127; 99212 ==

== ENCOUNTER 2025-02-10 08:22 | Outpatient (REF) | payer MEDICARE, OTHER, SELFPAY ==
--- NOTE | ~2025-02-10 | XR_ITS ---
CLINICAL HISTORY: M54.50 - Low back pain, unspecified 3 views lumbar spine Comparison: None provided Findings: Normal alignment. Multilevel disc height loss with reactive endplate change greatest at C2-3. Lower lumbar facet hypertrophy. Vascular calcium. IMPRESSION: Multilevel degenerative change with disc height loss greatest at L2-3 and lower lumbar facet hypertrophy. This document has been electronically signed by: Estella Laboy MD on 02/11/2025 11:49:01
--- OUTSIDE RECORDS SUMMARY | 2025-02-10 08:32 | XMS_ITS | Patient Health Record ---
Author Organization [facility] Address [address] [place] [address] [place] [address] Care Team Providers Care Studio Data Analyst Name Role Phone Siva Lawrence Primary Care Provider Armand Arteaga Unavailable [phone] Reason For Referral No Information Plan Of Treatment No Information Insurance Providers Payer Name Payer Address Payer Phone Subscriber Number Group Number Insured Name Patient Relationship to Insured Coverage Start Date Coverage End Date Medicare National [employer] [address] [place] [address] [id number] Jayant Griffiths Self - patient is the insured [facility] [address] [place] [address] [phone] [id number] Jyaant Griffiths Self - patient is the insured
--- OUTSIDE RECORDS SUMMARY | 2025-02-10 08:32 | XMS_ITS | Patient Health Record ---
Author Organization [facility] Address [address] [place] [address] Care Team Providers Care Warehouse Distribution Manager Name Role Phone Siva Lawrence MD Primary Care Provider Dung Newsome [phone] Reason For Referral No Information Medications Medication [...] Problem Status W/U Status Risk Notes Problem 486291981 Encounter for screening for malignant neoplasm of colon (Z12.11) Active confirmed Problem 92197303 Preprocedural examination (Z01.818) Active confirmed Problem 548747687 Aspirin long-ter m use (Z79.82) Active confirmed Plan Of Treatment Future Test Test Name Order Date COLONOSCOPY 05/29/2015 Insurance Providers Payer Name Payer Address Payer Phone Subscriber Number Group Number Insured Name Patient Relationship to Insured Coverage Start Date Coverage End Date MEDICARE OF [employer]A SARAH [address] [place] [id number] ARUNA ALATORRE Self - patient is the [facility] [address] [place] [address] [id number] ARUNA ALATORRE Self - patient is the insured Medical (General) History Medical History History ICD Code HTN colonoscopy 01-30-2004--neg e xcept for diverticulosis and internal hemorrhoids Hyperlipidemia Denies [place],DM,CVA,Lung disease,renal dise ase Surgical History Surgery Date(Month/Year) appendectomy
== END 2025-02-10 08:23 | disposition home or self-care (01) ==
LOC: HO.XRAY 08:22
PROVIDERS: PCP Internal Medicine; Visit Provider Internal Medicine
DX: M51.369 Other intervertebral disc degeneration, lumbar region without mention of lumbar back pain or lower extremity pain (principal)
CPT/HCPCS: 72100

== ENCOUNTER → 2025-02-10 08:27 | Outpatient (BNV) | payer MEDICARE, OTHER, SELFPAY | PROVIDERS: PCP Internal Medicine; Visit Provider Radiology Diagnostic Radiology | DX: M47.816 Spondylosis without myelopathy or radiculopathy, lumbar region (principal) | CPT/HCPCS: 72100 ==

== ENCOUNTER 2025-03-07 08:14 | Outpatient (AMB) | payer MEDICARE, OTHER, SELFPAY ==
--- OUTSIDE RECORDS SUMMARY | 2025-03-07 08:20 | XMS_ITS | Patient Health Record ---
Author Organization [facility] Address [address] [place] [address] [place] [address] Care Team Providers Care Hospice Volunteer Name Role Phone Siva Lawrence Primary Care Provider Armand Arteaga Unavailable [phone] Reason For Referral No Information Plan Of Treatment No Information Insurance Providers Payer Name Payer Address Payer Phone Subscriber Number Group Number Insured Name Patient Relationship to Insured Coverage Start Date Coverage End Date Medicare National [employer] [address] [facility] [place] [address] [id number] Jayant Griffiths Self - patient is the insured [facility] [address] [place] [id number] Jayant Griffiths Self - patient is the insured
--- OUTSIDE RECORDS SUMMARY | 2025-03-07 08:21 | XMS_ITS | Patient Health Record ---
Author Organization [facility] Address [address] [place] [address] Care Team Providers Care Consumer Lender Name Role Phone Siva Lawrence MD Primary Care Provider Dung Newsome [phone] Reason For Referral No Information Medications Medication [...] Problem Status W/U Status Risk Notes Problem 206125243 Encounter for screening for malignant neoplasm of colon (Z12.11) Active confirmed Problem 85707412 Preprocedural examination (Z01.818) Active confirmed Problem 926002773 Aspirin long-ter m use (Z79.82) Active confirmed Plan Of Treatment Future Test Test Name Order Date COLONOSCOPY 05/29/2015 Insurance Providers Payer Name Payer Address Payer Phone Subscriber Number Group Number Insured Name Patient Relationship to Insured Coverage Start Date Coverage End Date MEDICARE OF [employer]ESSANDRA SARAH [address] [place] [id number] [phone] [id number] ARUNA ALATORRE Self - patient is the [facility] [address] [place] [address] [id number] ARUNA ALATORRE Self - patient is the insured Medical (General) History Medical History History ICD Code HTN colonoscopy 01-30-2004--neg e xcept for diverticulosis and internal hemorrhoids Hyperlipidemia Denies [place],DM,CVA,Lung disease,renal dise ase Surgical History Surgery Date(Month/Year) appendectomy
--- NOTE | 2025-03-07 08:24 | MHC.PC.OV ---
Vital Signs 03/07/25 08:25 Height 5 ft 6 in Weight 185 lb 8 oz BMI 29.9 BP 126/70 Blood Pressure Location Lt brachial Position Sitting Pulse 67 Pulse Source Pulse Oximeter Temp 97.1 F Temp Source Temporal Artery Scan Pulse Oximetry (%) 96 Oxygen Delivery Method Room Air Intake Visit Reasons: 3mth f/u Intake Note: Patient is here to follow up on HTN, HLD. Is/It Project Manager Required: No Veneer Sample Maker: Not Required per policy Accompanied by: Self / Same As Patient Allergies amoxicillin (AMOXICILLIN) Allergy (Unknown, Verified 03/07/25 08:25) SEVERE ITCHING Medication List - Last Reconciled 03/07/25 by Siva Lawrence MD aspirin (Adult Low Dose Aspirin) 81 mg PO DAILY atorvastatin 40 mg PO DAILY 90 days cyanocobalamin (vitamin B-12) 1,000 mcg PO DAILY ibuprofen 800 mg PO Q8H PRN 7 days lisinopril 40 mg PO DAILY nifedipine ER 90 mg PO DAILY 90 days nitroglycerin (Nitrostat) 0.4 mg sublingual Q5M PRN Tobacco use date assessed: 03/07/25 Fall risk assessment: 1 Fall in past year Last assessed Fall Risk: 03/07/25 Dental Screening Dental Screen Date: 11/20/24 [facility] Medical History (Updated 03/07/25 @ 08:44 by Siva Lawrence MD) Obesity (BMI 30.0-34.9) Exertional chest pain Chest pain Diverticulosis Cataract Inguinal hernia Otitis externa Rt flank pain Hematoma and contusion Bicipital tendinitis of right shoulder Painful arc syndrome of right shoulder Left bundle branch block Aortic stenosis Cataracts, bilateral Shingles Erectile dysfunction Left renal stone Osteoarthritis Impaired glucose tolerance Chronic constipation Hyperlipidemia Hypertension Surgical History S/P cardiac cath History of arthroplasty of left knee History of total right knee replacement History of left inguinal hernia repair Social History Housing: House Alcohol intake: current Alcohol intake frequency: 0-2 drinks per day Patient Tobacco Use Status: Former Tobacco user Tobacco use type: Cigarette Years Smoked: quit 22 years old e-Cigarette/Vaping Use: Never Used Second Hand Smoke Exposure: Yes service: Yes ([employer]) Current occupational status: retired Cognitive needs: No Hearing needs: No Vision needs: Yes Questionnaire Thrive Questionnaire Date Thrive assessed: 02/06/25 I am a: Patient What is your living situation today?: I have a steady place to live Within the past 12 months, did the food you bought not last and you didn't have the money to get more?: Never true Within the past 12 months, did you worry whether your food would run out before you got money to buy more?: Never true Do you have trouble paying for medicines?: No Do you have trouble getting transportation to medical appointments?: No Do you have trouble paying your heating and electricity bill?: No Do you have trouble taking care of your child, family member or friend?: No Do you have trouble with day-to-day activities such as bathing, preparing meals, shopping, managing finances, etc.?: No Are you currently unemployed and looking for a job?: No Are you interested in more education?: I choose not to answer this question Please select the resources that you would like help with: None Currently or been in a relationship where the following occur: No concerns reported THRIVE Score: 0 LANE-[address] L[address]-7 Date LANE - 7 assessed: 11/20/24 Source: Developed by Drs. Dung Joel, Salina Diaz, Richard Bowden and colleagues, with an educational prince from [employer]. Physical exam (Primary Care) Vital Signs: Last Vital Signs Temp 97.1 F 03/07/25 08:25 Pulse 67 03/07/25 08:25 BP 126/70 03/07/25 08:25 Pulse Ox 96 03/07/25 08:25 Oxygen Delivery Method Room Air 03/07/25 08:25 BMI result Body Mass Index 29.9 Tobacco/Smoking Status: Tobacco use Status Tobacco use date assessed 03/07/25 03/07/25 08:30 Patient Tobacco Use Status Former Tobacco user 03/07/25 08:30 Tobacco use type Cigarette 03/07/25 08:30 e-Cigarette/Vaping Use Never Used 03/07/25 08:30 Thrive Assessment: Date of Thrive Assessment Date Thrive assessed 02/06/25 03/07/25 08:30 Currently or been in a relationship where the following occur: No concerns reported Const General: alert; No acute distress Eyes Conjunctivae: conjunctivae normal Resp Auscultation: clear to auscultation bilaterally Cardio Rate: regular rate Rhythm: regular rhythm GI Inspection: Yes normal to inspection Extrem General: Yes normal to inspection and No edema Coding Level of Care Code Est Pt Level 4 (97609) Complex EM visit Add On G2211 Diagnoses Essential hypertension I10 Hypertension type: essential hypertension Aortic stenosis I35.0 Obesity (BMI 30.0-34.9) E66.9 Impaired glucose tolerance R73.02 Lumbar degenerative disc disease M51.369 Costochondral chest pain R07.89 Assessment & Plan Assessment & Plan (1) Hypertension: Comment: Echo 55-60% grade 1 diastolic dysfunction mild May 2019 Code(s): I10 - Essential (primary) hypertension Category: Medical Qualifiers: Hypertension type: essential hypertension Qualified Code(s): I10 - Essential (primary) hypertension Plan: Continue with blood pressure medication. Decrease salt intake and exercise patient is taking lisinopril 40 mg once a day nifedipine ER 90 mg once a day (2) Aortic stenosis: Comment: April 2024 1.6 cm squared Code(s): I35.0 - Nonrheumatic aortic (valve) stenosis Category: Medical Plan: Continuing to monitor. April 2024 last tested with echo 1.6 (3) Obesity (BMI 30.0-34.9): Code(s): E66.9 - Obesity, unspecified Category: Medical Plan: Diet and exercise (4) Impaired glucose tolerance: Code(s): R73.02 - Impaired glucose tolerance (oral) Category: Medical Plan: Decrease the amount of carbohydrate intake, pasta, bread, rice and potatoes are all sugar and that is aside from all the sweet stuff, remember that fruits are good but they are Sweet also. (5) Lumbar degenerative disc disease: Code(s): M51.369 - Other intervertebral disc degeneration, lumbar region without mention of lumbar back pain or lower extremity pain Category: Medical Plan: Keep active lose the weight, resolved (6) Costochondral chest pain: Code(s): R07.89 - Other chest pain Category: Medical Plan History of Present Illness The patient is an 85-year-old male presenting for a follow-up visit to manage multiple chronic conditions including hypertension, hypercholesterolemia, impaired glucose tolerance, and aortic stenosis. The patient has a history of hypertension and hypercholesterolemia, which have been managed with medications including lisinopril and nifedipine. His blood pressure has been stable, and his LDL cholesterol was last recorded at 71 mg/dL. The patient also has impaired glucose tolerance with a hemoglobin A1c of 5.8%, slightly above the normal range. He has been advised to manage his weight and increase physical activity to prevent progression to diabetes. Aortic stenosis is present with a valve area of 1.6 cm?, and the patient is under cardiology follow-up. A recent cardiac catheterization showed no significant coronary artery disease. The patient has a history of nephrolithiasis and is being monitored for any recurrence. Degenerative disc disease has been identified through imaging, with multilevel degenerative changes and lower lumbar facet hypertrophy noted. The patient experienced a fall recently, resulting in back pain, but no fractures were identified. The patient is also being followed by dermatology for actinic keratosis and seborrheic keratosis, with topical antifungals prescribed. Cataracts have been noted, and the patient is up to date with ophthalmology visits. Preventative care includes a recent shingles vaccination, with the patient having completed the two-part series for better efficacy. Health Maintenance - Shingles vaccination: Completed two-part series for improved efficacy - Ophthalmology follow-up: Up to date for cataracts - Dermatology follow-up: Monitoring actinic keratosis and seborrheic keratosis Social History - Exercise: Engages in walking approximately two hours per week, plans to increase activity - Weight management: Advised to lose weight, currently managing diet and exercise Review of Systems - Cardiovascular: Denies chest pain, reports history of chest discomfort attributed to muscular causes - Musculoskeletal: Reports back pain following a fall, denies fractures - Ophthalmologic: Reports cataracts, up to date with ophthalmology visits Physical Exam - Cardiovascular: Regular rate and rhythm, no significant coronary artery disease, moderate aortic stenosis - Musculoskeletal: Multilevel degenerative disc disease, lower lumbar facet hypertrophy Results - Labs: Hemoglobin A1c 5.8%, LDL cholesterol 71 mg/dL - Imaging: Echocardiogram showing aortic valve area 1.6 cm?, cardiac catheterization with no significant coronary artery disease - Imaging: X-ray showing multilevel degenerative disc disease and lower lumbar facet hypertrophy Plan The patient will continue with current antihypertensive therapy, including lisinopril and nifedipine, to maintain blood pressure control. Cholesterol management will focus on maintaining LDL levels below 70 mg/dL through dietary modifications and monitoring. For impaired glucose tolerance, the patient is advised to increase physical activity and manage dietary intake to prevent progression to diabetes. Regular monitoring of hemoglobin A1c will be conducted to assess glucose control. The patient will continue cardiology follow-up for aortic stenosis, with plans for regular echocardiograms to monitor valve function. No significant coronary artery disease was noted, and medical management will continue. For degenerative disc disease, the patient is advised to avoid activities that may exacerbate back pain and to consider physical therapy if symptoms persist. Pain management will prioritize the use of acetaminophen over NSAIDs to minimize renal impact. Dermatology follow-up will continue for actinic keratosis and seborrheic keratosis, with topical treatments as prescribed. Preventative care measures include maintaining up-to-date vaccinations, such as the shingles vaccine, and regular ophthalmology visits for cataract monitoring. Patient was informed and verbally consented to the use of an ambient scribe for clinic note documentation during this visit. Discussion Notes During the visit, I discussed with the patient the importance of maintaining blood pressure and cholesterol levels within target ranges to prevent cardiovascular complications. We reviewed the need for regular monitoring of glucose levels to prevent progression to diabetes, emphasizing lifestyle modifications such as diet and exercise. I explained the current status of the patient's aortic stenosis and the importance of regular cardiology follow-ups and echocardiograms to monitor valve function. The patient was advised to avoid activities that could exacerbate back pain and to use acetaminophen for pain management to protect renal function. We also discussed the importance of continuing dermatology follow-ups for skin conditions and maintaining up-to-date vaccinations, including the shingles vaccine. Patient Instructions - Continue taking lisinopril and nifedipine as prescribed. - Monitor blood pressure regularly and report any significant changes. - Follow a low-cholesterol diet and aim to keep LDL levels below 70 mg/dL. - Increase physical activity and manage dietary intake to prevent diabetes. - Schedule regular cardiology follow-ups and echocardiograms. - Avoid activities that may worsen back pain and use acetaminophen for pain relief. - Continue dermatology follow-ups and use prescribed topical treatments. - Stay up to date with vaccinations, including the shingles vaccine.
[2025-03-07 08:25] VITALS: BP 126/70; PULSE 67; TEMP 36.2; O2SAT 96; BMI 29.9
== END 2025-03-07 08:48 | disposition home or self-care (01) ==
LOC: HO.HMCH 08:15
PROVIDERS: PCP Internal Medicine; Visit Provider Internal Medicine
DX: I10 Essential (primary) hypertension (principal); I35.0 Nonrheumatic aortic (valve) stenosis; E66.9 Obesity, unspecified; Z68.29 Body mass index [BMI] 29.0-29.9, adult; R73.02 Impaired glucose tolerance (oral); M51.369 Other intervertebral disc degeneration, lumbar region without mention of lumbar back pain or lower extremity pain; R07.89 Other chest pain

== ENCOUNTER → 2025-03-07 08:14 | Outpatient (BNVA) | payer MEDICARE, OTHER, SELFPAY | PROVIDERS: PCP Internal Medicine; Visit Provider Internal Medicine | DX: I10 Essential (primary) hypertension (principal); I35.0 Nonrheumatic aortic (valve) stenosis; E66.9 Obesity, unspecified; Z68.29 Body mass index [BMI] 29.0-29.9, adult; R73.02 Impaired glucose tolerance (oral); R07.89 Other chest pain; M51.369 Other intervertebral disc degeneration, lumbar region without mention of lumbar back pain or lower extremity pain; Z71.3 Dietary counseling and surveillance; Z87.891 Personal history of nicotine dependence | CPT/HCPCS: 99212 ==

== ENCOUNTER → 2025-05-01 07:55 | Outpatient (REF) | payer MEDICARE, OTHER, SELFPAY ==
--- OUTSIDE RECORDS SUMMARY | 2023-11-15 04:30 | XMS_ITS ---
[facility] Address [address] [place] [address] Care Team Providers Care Machine Fastener Name Role Phone Siva Lawrence Primary Care Provider Armand Arteaga [phone] Encounters Encounter Location Date Provider Diagnosis [address] [address] 11/15/2023 Armand Lay Plan Of Treatment No Information Progress Notes * CELIAvelina SHANKSOB: (85 yo M)Acc No.[id number]:11/15/2023 Progress Notes Patient: Jayant NEWTON Provider: Antonio [...] DPM Date: 0 11/15/2023 Generated for Lavonne toussaint/Juli/Feliciaitting on: 0 05/01/2025 07:58 AM EDT
--- NOTE | 2025-05-01 07:55 | CA_ITS ---
Transthoracic Echocardiogram Patient (Last, First, Middle): Jayant Griffiths R Gender: M Date of : 1940 Age: 85 Procedure Date: 05/01/2025 Procedure Type: Transthoracic Echocardiogram Location: OP Height: 167.64 cm Weight: 81.65 kg BSA: 1.91 m2 Heart Rate: 74 bpm BP: 126 / 62 mmHg Flight Test Mechanic: SB Referring MD: Ayaan Romero MD Mottler Operator: Ayaan Romero MD Symptoms: I35.0 - Nonrheumatic aortic (valve) stenosis Study Quality: Fair but adequate apical window ECG Rhythm: Sinus Conclusions: - 1. Normal LV ejection fraction of 65-70% with mild LVH 2. Moderate aortic stenosis, paradoxical low-flow 3. Normal RV systolic pressure 4. No gross pericardial effusion Findings Procedure Information The quality of the study was technically difficult. The study quality is limited by lung artifact. Left Ventricle Normal left ventricular size and systolic function. There is mildly increased left ventricular wall thickness. The visually estimated ejection fraction is between 65-70%. There is paradoxical septal motion consistent with a left bundle branch block. Spectral Doppler is indicative of an impaired relaxation filling pattern. There is moderate septal asymmetric hypertrophy. Right Ventricle Mildly increased right ventricular cavity size. There is normal right ventricular systolic function. Atria The left atrium is normal in size. There is no evidence of interatrial shunt. The right atrium is likely dilated. Aortic Valve There is moderate calcification of the aortic valve. There is moderate thickening of the aortic valve. There is moderate aortic valve stenosis. The peak aortic gradient is 30 mmHg.The mean gradient is 17 mmHg. There is no aortic valve regurgitation. Mitral Valve There is mild anterior mitral leaflet thickening. There is moderate mitral annular calcification. There is trace mitral valve regurgitation. There is no mitral valve stenosis. Pulmonic Valve The pulmonic valve was not well visualized. Tricuspid Valve Likely normal tricuspid valve structure and function. There is mild tricuspid valve regurgitation. The right ventricular systolic pressure is normal. The right ventricular systolic pressure is 30 mmHg. Normal right atrial pressure. There is no evidence of pulmonary hypertension. Great Vessels All visible segments of the aorta are normal in size. The pulmonary artery was not well visualized. There is no dilatation of the ascending aorta measuring 3.10 cm. Small plaque is seen in the sino tubular ridge. Venous The inferior vena cava is normal in size and collapses greater than 50% with inspiration. Pericardium/Pleural There is no evidence of pericardial effusion. Prior Study Comparison Changes noted compared to prior study dated: 04/23/2024. aortic stenosis is moderate Measurements 2D Linear Measurements IVSd: 1.51 0.6-0.9/0.6-1.0 cm LVIDd: 3.98 3.9-5.3/4.2-5.9 cm LVIDd Index: 2.08 2.4-3.2/2.2-3.1 cm/m2 LVIDs: 3.10 2.0-3.6 cm LVPWd: 1.33 0.7-1.1 cm LA Diam: 3.20 2.7-3.8/3.0-4.0 cm LAIDs Index: 1.68 1.5-2.3 cm/m2 LV Mass: 264.34 67-162/88-224 g LV Mass Index: 138.40 43-95/49-115 g/m2 LVOT Diam: 2.10 3.0+(-)1.3 cm 2D Systolic Function EF 4C: 67.40 >55% EF 2C: 64.90 >55% EF BiP: 66.70 >55% Mitral Valve MV Pk E: 0.79 MV PK A: 1.14 MV Decel Time: 279.00 E/A: 0.70 E'Lateral: 5.11 E'Medial: 3.48 E/E' Med: 22.80 E/E' Lat: 15.50 PHT: 82.00 MVA PHT: 2.68 Decel [place]: 2.84 Aortic Valve AoV Pk Brendon: 2.74 AoV Mn Brendon: 1.96 AoV VTI: 0.60 AoV Pk Grad: 30.00 Aov Mn Grad: 17.00 ANDREW Cont.VTI: 1.20 LVOT LVOT Pk Brendon: 0.99 LVOT Mn Brendon: 0.69 LVOT VTI: 0.21 LVOT Pk Grad: 4.00 LVOT Mn Grad: 2.00 LVOT Diam: 2.10 LVOT Area: 3.46 Diastolic Function MV Pk E: 0.79 MV Pk A: 1.14 E/A: 0.70 E'Medial: 3.48 E/E' Med: 22.80 E' Laterial: 5.11 E/E' Lat: 15.50 Right Ventricle TAPSE (mm): 20.90 TVS' Brendon: 11.50 Tricuspid Valve TR Pk Brendon: 2.59 TR Pk Grad: 27.00 RA Press: 3.00 RVSP: 30.00 Great Vessels Aorta Sinus of Valsalva: 3.90 2.0-3.5 cm Ao Asc: 3.10 2.1-3.4 cm Pulmonary Valve PV Pk Brendon: 1.03 Peak PV Grad: 4.00 Updated in Other Vendor System with Status of Final Ayaan Romero MD electronically signed on 05/01/2025 11:46:33 AM with status of Final
--- OUTSIDE RECORDS SUMMARY | 2025-05-01 07:58 | XMS_ITS | Patient Health Record ---
Author Organization [facility] Address [address] [place] [address] Care Team Providers Care Security Software Engineer Name Role Phone Siva Lawrence MD Primary Care Provider Dung Newsome [phone] Reason For Referral No Information Medications Medication [...] Problem Status W/U Status Risk Notes Problem [id number] Encounter for screening for malignant neoplasm of colon (Z12.11) Active confirmed Problem [id number] Preprocedural examination (Z01.818) Active confirmed Problem [id number] Aspirin long-ter m use (Z79.82) Active confirmed Plan Of Treatment Future Test Test Name Order Date COLONOSCOPY 05/29/2015 Insurance Providers Payer Name Payer Address Payer Phone Subscriber Number Group Number Insured Name Patient Relationship to Insured Coverage Start Date Coverage End Date MEDICARE OF [employer] [address] [place] [id number] ARUNA ALATORRE Self - patient is the [facility] [address] [place] [address] [phone] [id number] ARUNA ALATORRE Self - patient is the insured Medical (General) History Medical History History ICD Code HTN colonoscopy 01-30-2004--neg e xcept for diverticulosis and internal hemorrhoids Hyperlipidemia Denies SD,DM,CVA,Lung disease,renal dise ase Surgical History Surgery Date(Month/Year) appendectomy
--- OUTSIDE RECORDS SUMMARY | 2025-05-01 07:58 | XMS_ITS | Patient Health Record ---
Author Organization [facility] Address [address] [place] [address] [place] [address] Care Team Providers Care Business Analytics Manager Name Role Phone Siva Lawrence Primary Care Provider Armand Arteaga Unavailable [phone] Reason For Referral No Information Plan Of Treatment No Information Insurance Providers Payer Name Payer Address Payer Phone Subscriber Number Group Number Insured Name Patient Relationship to Insured Coverage Start Date Coverage End Date Medicare National [employer] [address] [place] [address] [id number] Jayant Griffiths Self - patient is the insured [facility] [address] [place] [id number] [phone] [id number] Jayant Griffiths Self - patient is the insured
== END ==
LOC: HO.CARD 07:55
PROVIDERS: PCP Internal Medicine; Visit Provider Internal Medicine Cardiovascular Disease
DX: I35.0 Nonrheumatic aortic (valve) stenosis (principal)
CPT/HCPCS: 93306

== ENCOUNTER → 2025-05-01 07:55 | Outpatient (BNV) | payer MEDICARE, OTHER, SELFPAY | PROVIDERS: PCP Internal Medicine; Visit Provider Internal Medicine Cardiovascular Disease | DX: I35.0 Nonrheumatic aortic (valve) stenosis (principal); I42.2 Other hypertrophic cardiomyopathy | CPT/HCPCS: 93306 ==

== ENCOUNTER 2025-05-06 13:29 | Outpatient (AMB) | payer MEDICARE, OTHER, SELFPAY ==
--- OUTSIDE RECORDS SUMMARY | 2023-11-15 04:30 | XMS_ITS ---
Author Organization [facility] Address [address] [place] [address] Care Team Providers Care Tight Rope Walker Name Role Phone Siva Lawrence Primary Care Provider Armand Arteaga [phone] Encounters Encounter Location Date Provider Diagnosis [address] [address] 11/15/2023 Armand Lay Plan Of Treatment No Information Progress Notes * CELIAvelina TIDWELLOB: (85 yo M)Acc No.[id number]:11/15/2023 Progress Notes Patient: Jayant NEWTON Provider: Antonio [...] DPM Date: 0 11/15/2023 Generated for Lavonne toussaint/Juli/Syed on: 0 05/06/2025 02:46 PM EDT
[2025-05-06 13:31] VITALS: BP 124/60; PULSE 70; TEMP 36.3; O2SAT 96; BMI 29.4
--- NOTE | 2025-05-06 13:31 | MHC.PC.OV ---
Vital Signs 05/06/25 13:31 Height 5 ft 6 in Weight 182 lb 6 oz BMI 29.4 BP 124/60 Blood Pressure Location Lt brachial Position Sitting Pulse 70 Pulse Source Pulse Oximeter Temp 97.3 F Temp Source Temporal Artery Scan Pulse Oximetry (%) 96 Oxygen Delivery Method Room Air Intake Visit Reasons: Eyesight Surgery 05/26 Allergies amoxicillin (AMOXICILLIN) Allergy (Unknown, Verified 05/06/25 13:33) SEVERE ITCHING Medication List - Last Reconciled 05/06/25 by Siva Lawrence MD aspirin (Adult Low Dose Aspirin) 81 mg PO DAILY atorvastatin 40 mg PO DAILY 90 days cyanocobalamin (vitamin B-12) 1,000 mcg PO DAILY lisinopril 40 mg PO DAILY nifedipine ER 90 mg PO DAILY 90 days Tobacco use date assessed: 05/06/25 Fall risk assessment: 1 Fall in past year Last assessed Fall Risk: 05/06/25 Dental Screening Dental Screen Date: 05/06/25 Did you have a dental visit in the last 12 months?: Yes Did you have a dental problem in the last 6 months where you did not have access to dental care?: No Was dental information given to patient?: Patient has dentist HPI Eyesight Surgery 05/26 HPI Details CATARACT OR and laser surgery, Right Left 05/2025 [facility] Medical History (Updated 05/06/25 @ 14:03 by Siva Lawrence MD) Obesity (BMI 30.0-34.9) Exertional chest pain Chest pain Diverticulosis Cataract Inguinal hernia Otitis externa Rt flank pain Hematoma and contusion Bicipital tendinitis of right shoulder Painful arc syndrome of right shoulder Left bundle branch block Aortic stenosis Cataracts, bilateral Shingles Erectile dysfunction Left renal stone Osteoarthritis Impaired glucose tolerance Chronic constipation Hyperlipidemia Hypertension Surgical History S/P cardiac cath History of arthroplasty of left knee History of total right knee replacement History of left inguinal hernia repair Social History (Updated 05/06/25 @ 14:01 by Siva Lawrence MD) Housing: House Alcohol intake: current Alcohol intake frequency: 0-2 drinks per day Comment: 2 shots and a martini Patient Tobacco Use Status: Former Tobacco user Tobacco use type: Cigarette Years Smoked: quit 22 years old e-Cigarette/Vaping Use: Never Used Second Hand Smoke Exposure: Yes service: Yes ([employer]) Current occupational status: retired Cognitive needs: No Hearing needs: No Vision needs: Yes Questionnaire PHQ-9 Over the last 2 weeks, how often have you been bothered by any of the following problems? 1. Little interest or pleasure in doing things: several days 2. Feeling down, depressed, or hopeless: not at all 3. Trouble falling or staying asleep, or sleeping too much: not at all 4. Feeling tired or having little energy: not at all 5. Poor appetite or overeating: not at all 6. Feeling bad about yourself - or that you are a failure or have let yourself or your family down: not at all 7. Trouble concentrating on things, such as reading the newspaper or watching television: not at all 8. Moving or speaking so slowly that other people could have noticed. Or the opposite - being so fidgety or restless that you have been moving around a lot more than usual: not at all 9. Thoughts that you would be better off or of hurting yourself in some way: not at all Total score: 1 Depression Screening Interpretation: Negative Depression Screening Done: Yes Source: Developed by Drs. Dung Joel, Salina Diaz, Richard Bowden and colleagues, with an educational prince from [employer]. Thrive Questionnaire Date Thrive assessed: 02/06/25 I am a: Patient What is your living situation today?: I have a steady place to live Within the past 12 months, did the food you bought not last and you didn't have the money to get more?: Never true Within the past 12 months, did you worry whether your food would run out before you got money to buy more?: Never true Do you have trouble paying for medicines?: No Do you have trouble getting transportation to medical appointments?: No Do you have trouble paying your heating and electricity bill?: No Do you have trouble taking care of your child, family member or friend?: No Do you have trouble with day-to-day activities such as bathing, preparing meals, shopping, managing finances, etc.?: No Are you currently unemployed and looking for a job?: No Are you interested in more education?: I choose not to answer this question Please select the resources that you would like help with: None Currently or been in a relationship where the following occur: No concerns reported THRIVE Score: 0 AUDIT C Alcohol Use Questionnaire (AUDIT-C) 1. How often do you have a drink containing alcohol?: 4 or more times a week 2. How many drinks containing alcohol do you have on a typical day when you are drinking?: 1 or 2 3. How often do you have six or more drinks on one occasion?: Never Total Score: 4 LANE-[address] L[address]-7 Date L[address] - 7 assessed: 11/20/24 Feeling nervous, anxious, or on edge: 0 = Not at all Not being able to stop or control worryin = Not at all Worrying too much about different things: 3 = Nearly every day Trouble relaxin = Several days Being so restless that it is hard to sit still: 0 = Not at all Becoming easily annoyed or irritable: 1 = Several days Feeling afraid as if something awful might happen: 1 = Several days Total LANE-7 score (0-4 normal; 5-9 mild; 10-14 moderate; 15-21 severe): 6 Source: Developed by Drs. Dung Joel, Salina Diaz, Richard Bowden and colleagues, with an educational prince from [employer]. Review of Systems Const Denies poor appetite and Denies weakness Eyes Denies no additional complaints ENT Reports Normal hearing present, Denies dizziness, Denies nasal congestion, Denies tinnitus and Denies sore throat Card Denies chest pain, Denies syncope, Denies rapid heart rate and Denies dyspnea Resp Denies cough and Denies dyspnea GI Denies change in stool character, Reports constipation, Denies diarrhea, Denies nausea and Denies vomiting Denies dysuria and Denies urinary frequency Neuro Reports Normal hearing present, Denies confusion, Denies dizziness, Denies syncope and Denies weakness Psych Denies confusion Physical exam (Primary Care) Vital Signs: Last Vital Signs Temp 97.3 F 05/06/25 13:31 Pulse 70 05/06/25 13:31 BP 124/60 05/06/25 13:31 Pulse Ox 96 05/06/25 13:31 Oxygen Delivery Method Room Air 05/06/25 13:31 BMI result Body Mass Index 29.4 Tobacco/Smoking Status: Tobacco use Status Tobacco use date assessed 05/06/25 05/06/25 13:35 Patient Tobacco Use Status Former Tobacco user 05/06/25 14:01 Tobacco use type Cigarette 05/06/25 14:01 e-Cigarette/Vaping Use Never Used 05/06/25 14:01 PHQ-9: PHQ-9 Score PHQ-9: Total score 1 05/06/25 13:54 Depression Screening Interpretation: Negative Thrive Assessment: Date of Thrive Assessment Date Thrive assessed 02/06/25 05/06/25 13:35 Currently or been in a relationship where the following occur: No concerns reported Const General: No confusion Orientation/consciousness: No confusion HENMT Head: Yes normocephalic Ears: external ears normal and TM's normal bilaterally Face and sinus: Yes normal facial exam Mouth: moist mucous membranes Throat: Yes tonsils normal Eyes Conjunctivae: conjunctivae normal Pupils: Equal, round and reactive pupils present and Pupil accommodation reflex normal Direct Ophthalmoscopy: normal light reflex Neck Neck: No lymphadenopathy Thyroid: Thyroid normal Chest Chest palpation & inspection: normal inspection of the chest Resp Effort & Inspection: normal respiratory effort and no audible wheezes Auscultation: clear to auscultation bilaterally, no crackles, no wheezes and lung sounds not diminished Cardio Rate: regular rate Rhythm: regular rhythm Peripheral pulses: radial pulses present and dorsalis pedis present GI Palpation (GI): no masses Auscultation: normal bowel sounds and normoactive bowel sounds Rectal Exam - Male: Yes deferred Skin General skin exam: no rashes or lesions noted Rashes: no rashes Neuro General: No confusion Cranial nerves: Yes Equal, round and reactive pupils present and Yes Normal hearing present Cognition (Neuro): normal cognition Gait exam (Neuro): Normal gait present Motor exam (neuro): 5/5 motor strength present throughout Deep tendon reflexes (DTR's): Right brachioradialis reflex intensity grade: 2+, Left brachioradialis reflex intensity grade: 2+, Right patellar reflex intensity grade: 2+ and Left patellar reflex intensity grade: 2+ Extrem General: No edema Coding Level of Care Code Est Pt Level 4 (13540) Diagnoses Preop exam for internal medicine Z01.818 Essential hypertension I10 Hypertension type: essential hypertension Pure hypercholesterolemia E78.00 Hyperlipidemia type: pure hypercholesterolemia Aortic stenosis I35.0 Overweight (BMI 25.0-29.9) E66.3 Assessment & Plan Assessment & Plan (1) Preop exam for internal medicine: Code(s): Z01.818 - Encounter for other preprocedural examination Category: Medical Plan: With the age patient belongs to the intermediate risk for any cardiac complications. Will send in for EKG as well as blood work. Discussed about the importance of getting blood pressure medication prior to the surgery. Thank you very much for letting me participate the care of this patient. (2) Hypertension: Comment: Echo 55-60% grade 1 diastolic dysfunction mild May 2019 cardiac cath done 12/2024 no significant coronary artery disease Code(s): I10 - Essential (primary) hypertension Category: Medical Qualifiers: Hypertension type: essential hypertension Qualified Code(s): I10 - Essential (primary) hypertension Plan: Continue with blood pressure medication. Decrease salt intake and exercise presently on lisinopril 40 mg once a day nifedipine 90 mg once a day (3) Hyperlipidemia: Code(s): E78.5 - Hyperlipidemia, unspecified Category: Medical Qualifiers: Hyperlipidemia type: pure hypercholesterolemia Qualified Code(s): E78.00 - Pure hypercholesterolemia, unspecified Plan: Avoid fried foods, chicken skin, eggs, butter margarine, pastries and meat. Be it pork or beef they have a lot of cholesterol on atorvastatin 40 mg once a day (4) Aortic stenosis: Comment: April 2024 1.6 cm squared, April 2025 1.2 cm Code(s): I35.0 - Nonrheumatic aortic (valve) stenosis Category: Medical Plan: Continuing to monitor moderate aortic stenosis (5) Overweight (BMI 25.0-29.9): Code(s): E66.3 - Overweight Category: Medical Plan: Continue with diet and exercise Plan History of Present Illness The patient is an 85-year-old male presenting for a preoperative evaluation for cataract surgery. The patient has a history of hypertension, currently managed with lisinopril 40 mg once daily and nifedipine 90 mg once daily. His blood pressure management is crucial, especially in the context of upcoming surgery, as uncontrolled hypertension could complicate the procedure. The patient also has hypercholesterolemia, for which he is taking atorvastatin 40 mg once daily. His cholesterol levels are being monitored regularly to prevent cardiovascular complications. He has impaired glucose tolerance, which requires monitoring to prevent progression to diabetes. The patient has moderate aortic stenosis, as evidenced by an echocardiogram showing an LV ejection fraction of 65 to 70% and mild left ventricular hypertrophy. The aortic valve area has decreased over time, indicating a progression of the stenosis. He has a history of nephrolithiasis on the left side, which is currently stable. The patient also suffers from lumbar degenerative disc disease, contributing to chronic back pain. He is scheduled for cataract surgery on both eyes, with the right eye procedure planned for May 26. The patient has been informed about the low-risk nature of the procedure and the importance of continuing his blood pressure medications. The patient has arthritis, which is managed with Voltaren gel for symptomatic relief. Preventative care measures include a colon cancer screening, which is overdue since 2014. 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 relaxation, ongoing for 20 years - Exercise: Engages in walking despite experiencing chest pain, which he manages with Tylenol Review of Systems - Cardiovascular: Reports chest pain during activity, denies syncope or dizziness - Musculoskeletal: Reports arthritis-related pain, managed with Voltaren gel - Gastrointestinal: Denies abdominal pain, reports normal bowel movements - Neurological: Denies dizziness or syncope Physical Exam - Cardiovascular: Echocardiogram showing LV ejection fraction of 65 to 70% with mild left ventricular hypertrophy and moderate aortic stenosis - Renal: Stable renal function with creatinine of 1.0 Results - Echocardiogram: LV ejection fraction of 65 to 70%, mild left ventricular hypertrophy, moderate aortic stenosis - Blood work (November 2024): Normal blood count, no anemia, stable renal function with creatinine of 1.0 Plan Patient was informed and verbally consented to the use of an ambient scribe for clinic note documentation during this visit. 1. Hypertension The patient is currently on lisinopril 40 mg once daily and nifedipine 90 mg once daily for hypertension management. It is crucial to maintain blood pressure control, especially in the context of the upcoming cataract surgery, to avoid perioperative complications. 2. Hypercholesterolemia The patient is taking atorvastatin 40 mg once daily to manage hypercholesterolemia. Regular monitoring of cholesterol levels is advised to prevent cardiovascular events. 3. Aortic Stenosis The patient has moderate aortic stenosis with an LV ejection fraction of 65 to 70% and mild left ventricular hypertrophy. Regular echocardiogram monitoring is recommended to assess the progression of the stenosis. 4. Cataracts The patient is scheduled for cataract surgery on both eyes, with the right eye procedure planned for May 26. The procedure is considered low risk, and the patient has been advised to continue blood pressure medications to ensure stability during surgery. 5. Arthritis The patient experiences arthritis-related pain, which is managed with Voltaren gel for symptomatic relief. Discussion Notes I discussed with the patient the importance of maintaining blood pressure control with lisinopril and nifedipine, especially in preparation for the upcoming cataract surgery. We reviewed the echocardiogram findings, which show moderate aortic stenosis, and emphasized the need for regular monitoring. The patient was informed about the low-risk nature of the cataract procedure and the necessity of continuing his current medications. Patient Instructions - Continue taking lisinopril and nifedipine as prescribed to manage blood pressure. - Take atorvastatin as prescribed to manage cholesterol levels. - Use Voltaren gel for arthritis pain as needed. - Attend scheduled cataract surgery on May 26 and follow preoperative instructions. - Schedule a colon cancer screening as it is overdue. Orders: Orders ECG 12 lead EKG Today Z01.818 - Encounter for other preprocedural examination Complete Blood Count Auto Diff Today Z01.818 - Encounter for other preprocedural examination Basic Metabolic Panel Today Z01.818 - Encounter for other preprocedural examination
--- OUTSIDE RECORDS SUMMARY | 2025-05-06 14:46 | XMS_ITS | Patient Health Record ---
Author Organization [facility] Address [address] [place] [address] Care Team Providers Care Retail Manager In Training Name Role Phone Siva Lawrence MD Primary Care Provider Dung Newsome [phone] Reason For Referral No Information Medications Medication [...] Problem Status W/U Status Risk Notes Problem [id number] Encounter for screening for malignant neoplasm of colon (Z12.11) Active confirmed Problem [id number] Preprocedural examination (Z01.818) Active confirmed Problem [id number] Aspirin long-ter m use (Z79.82) Active confirmed Plan Of Treatment Future Test Test Name Order Date COLONOSCOPY 05/29/2015 Insurance Providers Payer Name Payer Address Payer Phone Subscriber Number Group Number Insured Name Patient Relationship to Insured Coverage Start Date Coverage End Date MEDICARE OF [employer] [address] [place] [id number] [phone] [id number] ARUNA ALATORRE Self - patient is the [facility] [address] [place] [address] [phone] [id number] ARUNA ALATORRE Self - patient is the insured Medical (General) History Medical History History ICD Code HTN colonoscopy 01-30-2004--neg e xcept for diverticulosis and internal hemorrhoids Hyperlipidemia Denies [place],DM,CVA,Lung disease,renal dise ase Surgical History Surgery Date(Month/Year) appendectomy
--- OUTSIDE RECORDS SUMMARY | 2025-05-06 14:46 | XMS_ITS | Patient Health Record ---
Author Organization [facility] Address [address] [place] [address] [place] [address] Care Team Providers Care Marker Machine Attendant Name Role Phone Siva Lawrence Primary Care Provider Armand Arteaga Unavailable [phone] Reason For Referral No Information Plan Of Treatment No Information Insurance Providers Payer Name Payer Address Payer Phone Subscriber Number Group Number Insured Name Patient Relationship to Insured Coverage Start Date Coverage End Date Medicare National [employer] [address] [place] [address] [id number] Jayant Griffiths Self - patient is the insured [facility] [address] [place] [id number] Jayant Griffiths Self - patient is the insured
== END 2025-05-06 14:11 | disposition home or self-care (01) ==
LOC: HO.HMCH 13:30
PROVIDERS: PCP Internal Medicine; Visit Provider Internal Medicine
DX: Z01.818 Encounter for other preprocedural examination (principal); I10 Essential (primary) hypertension; E78.00 Pure hypercholesterolemia, unspecified; I35.0 Nonrheumatic aortic (valve) stenosis; E66.3 Overweight

== ENCOUNTER → 2025-05-06 13:29 | Outpatient (BNVA) | payer MEDICARE, OTHER, SELFPAY | PROVIDERS: PCP Internal Medicine; Visit Provider Internal Medicine | DX: Z01.818 Encounter for other preprocedural examination (principal); I10 Essential (primary) hypertension; E78.00 Pure hypercholesterolemia, unspecified; I35.0 Nonrheumatic aortic (valve) stenosis; E66.3 Overweight; N20.0 Calculus of kidney; H26.9 Unspecified cataract | CPT/HCPCS: 96127; 99212 ==

== ENCOUNTER 2025-05-10 09:16 | Outpatient (REF) | payer MEDICARE, OTHER, SELFPAY ==
--- OUTSIDE RECORDS SUMMARY | 2023-11-15 04:30 | XMS_ITS ---
Author Organization [facility] Address [address] [place] [id number] Care Team Providers Care Retail Client Solutions Analyst Name Role Phone Siva Lawrence Primary Care Provider Armand Kelly [phone] Encounters Encounter Location Date Provider Diagnosis [facility] [address] [place] [address] 11/15/2023 Armand Carson Plan Of Treatment No Information Progress Notes * Avelina ALATORREOB: (85 yo M)Acc No.[id number]:11/15/2023 Progress Notes Patient: Jayant NEWTON Provider: Antonio Lay DPM :1940 A ge:83 Y S ex:Male Date:11/15/2023 Address:[address], [id number] Pcp:Siva Lawrence Subjective: * Chief Complaints: * * Medical History: Objective: * Vitals: Assessment: Plan: * Treatment: * Images: * The named appointment provid er may or may not be the originator of this progress note, and it is not deemed complete until electronically signed by the appointment provider. Sign off status: Pending * Provider: Antonio Lay DPM Date: 0 11/15/2023 Generated for Lavonne toussaint/Juli/eTjanice on: 1 09:18 AM EDT
--- OUTSIDE RECORDS SUMMARY | 2025-05-10 09:18 | XMS_ITS | Patient Health Record ---
Author Organization [facility] Address [address] [place] [address] Care Team Providers Care Software Technician Name Role Phone Siva Lawrence MD Primary Care Provider Dung Newsome [phone] Reason For Referral No Information Medications Medication [...] Problem Status W/U Status Risk Notes Problem [id number] Encounter for screening for malignant neoplasm of colon (Z12.11) Active confirmed Problem [id number] Preprocedural examination (Z01.818) Active confirmed Problem [id number] Aspirin long-ter m use (Z79.82) Active confirmed Plan Of Treatment Future Test Test Name Order Date COLONOSCOPY 05/29/2015 Insurance Providers Payer Name Payer Address Payer Phone Subscriber Number Group Number Insured Name Patient Relationship to Insured Coverage Start Date Coverage End Date MEDICARE OF [employer] SARAH [address] [place] [id number] ARUNA ALATORRE Self - patient is the insured [facility] [address] [place] [address] [id number] ARUNA ALATORRE Self - patient is the insured Medical (General) History Medical History History ICD Code HTN colonoscopy 01-30-2004--neg e xcept for diverticulosis and internal hemorrhoids Hyperlipidemia Denies [place],DM,CVA,Lung disease,renal dise ase Surgical History Surgery Date(Month/Year) appendectomy
--- OUTSIDE RECORDS SUMMARY | 2025-05-10 09:18 | XMS_ITS | Patient Health Record ---
Author Organization [facility] Address [address] [place] [address] [place] [address] Care Team Providers Care Footwear Sales Associate Name Role Phone Siva Lawrence Primary Care Provider Armand Kelly Unavailable [phone] Reason For Referral No Information Plan Of Treatment No Information Insurance Providers Payer Name Payer Address Payer Phone Subscriber Number Group Number Insured Name Patient Relationship to Insured Coverage Start Date Coverage End Date Medicare National [employer] [address] [facility] [place] [address] [id number] Jayant Griffiths Self - patient is the insured [facility] [address] [place] [id number] [phone] [id number] Jayant Griffiths Self - patient is the insured
[2025-05-10 11:31] LABS: MANUAL DIFF FLAG NO
[2025-05-10 11:36] LABS: Hematocrit 45.6 % (42.0-52.0); Hemoglobin 15.8 g/dl (14.0-18.0); Imm Gran Abs Auto 0.04 X10*3/uL (0.00-0.03); Imm Gran Pct Auto 0.4 % (0.0-0.4); Lymphocytes Absolute Auto 1.2 X10*3/uL (1.2-4.9); Mean Corpuscular HGB Conc 34.6 g/dl (31.0-36.0); Mean Corpuscular Hemoglobin 32.0 pg (27.0-33.0); Mean Corpuscular Volume 92.3 fL (80.0-98.0); NRBC Abs Auto 0.000 X10*3/uL (0.0-0.012); NRBC Pct Auto 0.0 /100WBC (0.0-0.2); Platelet Count 170 X10*3/uL (160-400); Red Blood Count 4.94 X10*6/uL (4.60-5.80); White Blood Count 9.9 X10*3/uL (4.8-10.8)
[2025-05-10 11:52] LABS: Anion Gap 12 (12-20); Blood Urea Nitrogen 27 mg/dL (9-16); Calcium 9.6 mg/dL (8.4-10.2); Carbon Dioxide 28 mmol/L (22-29); Chloride 105 mmol/L (96-108); Estimated Glomerular Filt Rate > 60; Potassium 4.7 mmol/L (3.3-5.1); Sodium 140 mmol/L (135-145)
== END 2025-05-10 09:17 | disposition home or self-care (01) ==
LOC: HO.HMGCLDS 09:16
PROVIDERS: PCP Internal Medicine; Visit Provider Internal Medicine
DX: Z01.818 Encounter for other preprocedural examination (principal)
CPT/HCPCS: 36415; 80048; 85025

== ENCOUNTER 2025-05-20 09:57 | Outpatient (AMB) | payer MEDICARE, OTHER, SELFPAY ==
[2025-05-20 10:03] VITALS: BP 142/88; PULSE 77; TEMP 36.2; O2SAT 97; BMI 29.5
--- NOTE | 2025-05-20 10:03 | AM.OFFVISMDC ---
Intake Vital Signs 05/20/25 10:03 05/20/25 10:39 Height 5 ft 6 in Weight 182 lb 8 oz BMI 29.5 BP 142/88 H 138/70 Blood Pressure Location Lt brachial Lt brachial Position Sitting Sitting Pulse 77 Pulse Source Pulse Oximeter Temp 97.1 F Temp Source Temporal Artery Scan Pulse Oximetry (%) 97 Oxygen Delivery Method Room Air Intake Visit Reasons: SWV G0439 Allergies amoxicillin (AMOXICILLIN) Allergy (Unknown, Verified 05/20/25 10:06) SEVERE ITCHING Medication List - Last Reconciled 05/20/25 by Siva Lawrence MD aspirin (Adult Low Dose Aspirin) 81 mg PO DAILY atorvastatin 40 mg PO DAILY 90 days cyanocobalamin (vitamin B-12) 1,000 mcg PO DAILY lisinopril 40 mg PO DAILY nifedipine ER 90 mg PO DAILY 90 days sildenafil (Viagra) 50 mg PO DAILY PRN HPI SWV G0439 HPI Details [place] of care: E[facility], [facility], [place] [facility] [place]. Craven, [facility], surgery Dr. Romo Cataract Dr Biggs 04/30/2025 [facility] Medical History Obesity (BMI 30.0-34.9) Exertional chest pain Chest pain Diverticulosis Cataract Inguinal hernia Otitis externa Rt flank pain Hematoma and contusion Bicipital tendinitis of right shoulder Painful arc syndrome of right shoulder Left bundle branch block Aortic stenosis Cataracts, bilateral Shingles Erectile dysfunction Left renal stone Osteoarthritis Impaired glucose tolerance Chronic constipation Hyperlipidemia Hypertension Surgical History S/P cardiac cath History of arthroplasty of left knee History of total right knee replacement History of left inguinal hernia repair Social History Housing: House Alcohol intake: current Alcohol intake frequency: 0-2 drinks per day Comment: 2 shots and a martini Patient Tobacco Use Status: Former Tobacco user Tobacco use type: Cigarette Years Smoked: quit 22 years old e-Cigarette/Vaping Use: Never Used Second Hand Smoke Exposure: Yes service: Yes ([employer]) Current occupational status: retired Cognitive needs: No Hearing needs: No Vision needs: Yes Questionnaire Medicare Wellness Checkup What is your age?: 81 or older What gender do you identify with?: male During the past 4 weeks, how much have you been bothered by emotional problems such as feeling anxious, depressed, irritable, sad or downhearted, and blue?: moderately During the past 4 weeks, has your physical & emotional health limited your social activities with family, friends, neighbors, or groups?: not at all During the past 4 weeks, how much bodily pain have you generally had?: moderate pain During the past 4 weeks, was someone available to help you if you needed & wanted help?: yes, quite a bit During the past 4 weeks, what was the hardest physical activity you could do for at least 2 minutes?: moderate Can you get to places out of walking distance without help? (For eg., can you travel alone on buses, taxis or drive your car?): Yes Can you go shopping for groceries or clothes without someone's help?: Yes Can you prepare your own meals?: Yes Can you do your housework without help?: Yes Because of any health problems, do you need the help of another person with your personal care needs such as eating, bathing, dressing or getting around the house?: No Can you handle your own money without help?: Yes During the past 4 weeks, how would you rate your health in general?: good During the past 4 weeks how have things been going for you?: good & bad parts about equal Are you having difficulties driving your car?: no Do you always fasten your seat belt when you are in a car?: yes, usually During past 4 weeks, have you been bothered by the following: never: Trouble eating well? and Problems using the telephone?, seldom: Tiredness or fatigue? and sometimes: Falling or dizzy when standing up, Sexual problems? and Teeth or denture problems? Have you fallen 2 or more times in the past year?: Yes Are you afraid of falling?: Yes Are you a smoker?: no During the past 4 weeks, how many drinks of wine, beer, or other alcoholic beverages did you have?: 6-9 drinks per week Do you exercise for about 20 minutes 3 or more times a week?: yes, most of the time Have you been given information to help with the following?: no: Hazards in your house that might hurt you? and no: Keeping track of your medications? How often do you have trouble taking medicines the way you have been told to take them?: I always take medicine as prescribed How confident are you that you can control & manage most of your health problems?: very confident What is your race?: White PHQ-9 Over the last 2 weeks, how often have you been bothered by any of the following problems? 1. Little interest or pleasure in doing things: not at all 2. Feeling down, depressed, or hopeless: several days 3. Trouble falling or staying asleep, or sleeping too much: not at all 4. Feeling tired or having little energy: not at all 5. Poor appetite or overeating: not at all 6. Feeling bad about yourself - or that you are a failure or have let yourself or your family down: not at all 7. Trouble concentrating on things, such as reading the newspaper or watching television: not at all 8. Moving or speaking so slowly that other people could have noticed. Or the opposite - being so fidgety or restless that you have been moving around a lot more than usual: not at all 9. Thoughts that you would be better off or of hurting yourself in some way: not at all Total score: 1 Depression Screening Interpretation: Positive Depression Screening Done: Yes 26130 - PHQ-9 Billing: Yes Source: Developed by Drs. Dung Joel, Salina Diaz, Richard Bowden and colleagues, with an educational prince from [employer]. Review of Systems Const Denies poor appetite and Denies weakness Eyes Denies no additional complaints ENT Reports Normal hearing present, Denies dizziness, Denies nasal congestion, Denies tinnitus and Denies sore throat Card Denies chest pain, Denies syncope, Denies rapid heart rate and Denies dyspnea Resp Denies cough and Denies dyspnea GI Denies change in stool character, Reports constipation, Denies diarrhea, Denies nausea and Denies vomiting Denies dysuria and Denies urinary frequency Neuro Reports Normal hearing present, Denies confusion, Denies dizziness, Denies syncope and Denies weakness Psych Denies confusion Physical Exam Vital Signs: Last Vital Signs Temp 97.1 F 05/20/25 10:03 Pulse 77 05/20/25 10:03 BP 138/70 05/20/25 10:39 Pulse Ox 97 05/20/25 10:03 Oxygen Delivery Method Room Air 05/20/25 10:03 BMI result Body Mass Index 29.5 Const General: No confusion Orientation/consciousness: No confusion HEENT Head: Yes normocephalic Ears: external ears normal and TM's normal bilaterally Face and sinus: Yes normal facial exam Mouth: moist mucous membranes Throat: Yes tonsils normal Eyes Conjunctivae: conjunctivae normal Pupils: Equal, round and reactive pupils present and Pupil accommodation reflex normal Direct Ophthalmoscopy: normal light reflex Neck Neck: No lymphadenopathy Thyroid: Thyroid normal Chest Chest palpation & inspection: normal inspection of the chest Resp Effort & Inspection: normal respiratory effort and no audible wheezes Auscultation: clear to auscultation bilaterally, no crackles, no wheezes and lung sounds not diminished Cardio Rate: regular rate Rhythm: regular rhythm Peripheral pulses: radial pulses present and dorsalis pedis present GI Other: declined Palpation (GI): no masses Auscultation: normal bowel sounds and normoactive bowel sounds Rectal Exam - Male: Yes deferred Skin General skin exam: no rashes or lesions noted Rashes: no rashes Neuro General: No confusion Cranial nerves: Yes Equal, round and reactive pupils present and Yes Normal hearing present Cognition (Neuro): normal cognition Gait exam (Neuro): Normal gait present Motor exam (neuro): 5/5 motor strength present throughout Deep tendon reflexes (DTR's): Right brachioradialis reflex intensity grade: 2+, Left brachioradialis reflex intensity grade: 2+, Right patellar reflex intensity grade: 2+ and Left patellar reflex intensity grade: 2+ Extrem General: No edema Assessment & Plan Assessment & Plan (1) Encounter for subsequent annual wellness visit in Medicare patient: Code(s): Z00.00 - Encounter for general adult medical examination without abnormal findings Plan: Patient is advised to eat healthy, keep well hydrated, keep active and have adequate sleep. (2) Aortic stenosis: Comment: April 2024 1.6 cm squared, April 2025 1.2 cm Code(s): I35.0 - Nonrheumatic aortic (valve) stenosis Plan: Continue to monitor (3) Hypertension: Comment: Echo 55-60% grade 1 diastolic dysfunction mild May 2019 cardiac cath done 12/2024 no significant coronary artery disease Code(s): I10 - Essential (primary) hypertension Qualifiers: Hypertension type: essential hypertension Qualified Code(s): I10 - Essential (primary) hypertension Plan: Continue with blood pressure medication. Decrease salt intake and exercise on lisinopril 40 mg once a day nifedipine 90 mg once a day (4) Hyperlipidemia: Code(s): E78.5 - Hyperlipidemia, unspecified Qualifiers: Hyperlipidemia type: pure hypercholesterolemia Qualified Code(s): E78.00 - Pure hypercholesterolemia, unspecified Plan: Avoid fried foods, chicken skin, eggs, butter margarine, pastries and meat. Be it pork or beef they have a lot of cholesterol LDL goal of less than 100 and triglyceride of less than 150 on atorvastatin 40 mg once a day (5) Impaired glucose tolerance: Code(s): R73.02 - Impaired glucose tolerance (oral) Plan: Decrease the amount of carbohydrate intake, pasta, bread, rice and potatoes are all sugar and that is aside from all the sweet stuff, remember that fruits are good but they are Sweet also. (6) Overweight (BMI 25.0-29.9): Code(s): E66.3 - Overweight Plan: Diet and exercise (7) Lumbar degenerative disc disease: Code(s): M51.369 - Other intervertebral disc degeneration, lumbar region without mention of lumbar back pain or lower extremity pain Plan: Keep active Plan History of Present Illness The patient is an 85-year-old male presenting for an annual wellness visit. The patient has a history of hypertension, managed with lisinopril and nifedipine, with a current blood pressure of 138/60 mmHg. He has hypercholesterolemia, with an LDL cholesterol of 71 mg/dL, managed with atorvastatin. The patient has impaired glucose tolerance, with a blood sugar level of 119 mg/dL, managed through diet and exercise. He has a history of aortic stenosis and nephrolithiasis, with the last echocardiogram in April 2025. The patient also has lumbar degenerative disc disease and recently underwent cataract surgery. Health Maintenance - Vaccinations: Shingles, tetanus, pneumonia, flu, and COVID vaccines are up to date. - Screening: Last colonoscopy was in 2014. Social History - Alcohol use: Consumes one martini daily, equivalent to two shots. - Smoking: Quit smoking at age 22. - Exercise: Walks for approximately 40 minutes regularly. Review of Systems - Cardiovascular: Denies chest pain, orthopnea, or syncope. - Respiratory: Denies dyspnea or cough. - Neurological: Reports dizziness upon getting out of bed, denies passing out. - Gastrointestinal: Denies nausea, vomiting, or difficulty swallowing. - Musculoskeletal: Reports foot pain that resolves with rest and Voltaren application. Physical Exam General: Cooperative, overweight, healthy appearing, comfortable, no acute distress and well developed Orientation: Patient oriented x3 Limitations: No limitations Head: Normal to inspection Ears: Hearing grossly normal bilaterally, but a little bit of ear wax present, unable to see the eardrum Nose: Normal external nose present Face and sinus: Normal facial exam Eyes: Appearance normal, both eyes and all related structures Neck: Normal visual inspection and Yes full ROM Respiratory: Normal respiratory effort and able to speak in complete sentences. Clear to auscultation bilaterally Cardiovascular: Regular rate and rhythm. Normal S1 and S2 GI: Normal to inspection. Soft to palpation and nontender Skin: No rashes or lesions noted Neuro: Patient oriented x3 Extremities: Normal to inspection, slight swelling noted in the foot, described as tendon-related due to walking pattern. Results - Labs: Normal blood count, normal electrolytes, creatinine 1.03 mg/dL, blood sugar 119 mg/dL. - Cholesterol: LDL 71 mg/dL as of November 2024. Plan Patient was informed and verbally consented to the use of an ambient scribe for clinic note documentation during this visit. 1. Hypertension The patient's hypertension is managed with lisinopril and nifedipine, with a current blood pressure of 138/60 mmHg. 2. Hypercholesterolemia The patient is on atorvastatin, with a goal to maintain LDL cholesterol below 100 mg/dL. 3. Impaired Glucose Tolerance The patient is advised to manage impaired glucose tolerance through diet and exercise. 4. Aortic Stenosis The patient has a history of aortic stenosis, with regular follow-up advised. 5. Nephrolithiasis The patient is advised to maintain adequate hydration to manage nephrolithiasis. 6. Lumbar Degenerative Disc Disease The patient has lumbar degenerative disc disease, managed conservatively. 7. Cataracts The patient recently underwent cataract surgery, with no complications reported. Discussion Notes During the visit, we discussed the management of hypertension with lisinopril and nifedipine, and the importance of regular blood pressure monitoring. We also reviewed the patient's cholesterol management with atorvastatin, aiming to keep LDL levels below 100 mg/dL. The patient was advised to continue managing impaired glucose tolerance through diet and exercise. We discussed the patient's history of aortic stenosis and the need for regular cardiology follow-up. The patient was reminded to maintain hydration to prevent nephrolithiasis episodes. We also reviewed the patient's recent cataract surgery and confirmed there were no complications. Patient Instructions - Continue taking lisinopril and nifedipine as prescribed. - Monitor blood pressure regularly and report any significant changes. - Continue atorvastatin to maintain cholesterol levels. - Manage blood sugar through diet and exercise. - Stay hydrated to prevent kidney stones. - Follow up with cardiology for aortic stenosis management. - Report any new symptoms or concerns to your healthcare provider. Quality Reporting (2019) Depression/Bipolar (159/160/161/177) PHQ-9: Total score: 1 Coding Level of Care Code Medicare Subsequent (G0439) Diagnoses Encounter for subsequent annual wellness visit in Medicare patient Z00.00 Aortic stenosis I35.0 Essential hypertension I10 Hypertension type: essential hypertension Pure hypercholesterolemia E78.00 Hyperlipidemia type: pure hypercholesterolemia Impaired glucose tolerance R73.02 Overweight (BMI 25.0-29.9) E66.3 Lumbar degenerative disc disease M51.369 Additional Codes PHQ-9 - 09623 - PHQ-9 Billing: Yes ([id number])
[2025-05-20 10:39] VITALS: BP 138/70
--- OUTSIDE RECORDS SUMMARY | 2025-05-20 11:24 | XMS_ITS | Patient Health Record ---
Author Organization [facility] Address [address] [place] [address] Care Team Providers Care Paintless Dent Repair Technician Name Role Phone Siva Lawrence MD Primary Care Provider Dung Newsome [phone] Reason For Referral No Information Medications Medication SIG (Take, Route, Frequency, Duration) Notes Start Date End Date Status Colyte w Flavor Packs 240 GM as directed Orally as directed; Duration: 1 day(s) 05/30/2015 Active Lisinopril 10 MG [...] Problem Status W/U Status Risk Notes Problem Screening for malignant neoplasm of colon (595741889) Encounter for screening for malignant neoplasm of colon (Z12.11) Active confirmed Problem Preprocedural examination ([id number]) Preprocedural examination (Z01.818) Active confirmed Problem Long-term current use of aspirin ([id number]) Aspirin long-term use (Z79.82) Active confirmed Plan Of Treatment Future Test Test Name Order Date COLONOSCOPY 05/29/2015 Insurance Providers Payer Name Payer Address Payer Phone Subscriber Number Group Number Insured Name Patient Relationship to Insured Coverage Start Date Coverage End Date MEDICARE OF [employer] [address] [place] [id number] [phone] [id number] ARUNA ALATORRE Self - patient is the insured [facility] [address] [place] [phone] [id number] ARUNA ALATORRE Self - patient is the insured Medical (General) History Medical History History ICD Code HTN colonoscopy 01-30-2004--neg e xcept for diverticulosis and internal hemorrhoids Hyperlipidemia Denies OR,DM,CVA,Lung disease,renal dise ase Surgical History Surgery Date(Month/Year) appendectomy
== END 2025-05-20 11:00 | disposition home or self-care (01) ==
LOC: HO.HMCH 09:58
PROVIDERS: PCP Internal Medicine; Visit Provider Internal Medicine
DX: Z00.00 Encounter for general adult medical examination without abnormal findings (principal); I35.0 Nonrheumatic aortic (valve) stenosis; I10 Essential (primary) hypertension; E66.3 Overweight; Z68.29 Body mass index [BMI] 29.0-29.9, adult; E78.00 Pure hypercholesterolemia, unspecified; R73.02 Impaired glucose tolerance (oral); M51.369 Other intervertebral disc degeneration, lumbar region without mention of lumbar back pain or lower extremity pain

== ENCOUNTER → 2025-05-20 09:57 | Outpatient (REF) | payer MEDICARE, OTHER, SELFPAY ==
--- NOTE | 2025-05-20 11:10 | ECG_ITS ---
Test Reason : z01.818 Blood Pressure : */* mmHG Vent. Rate : 66 BPM Atrial Rate : 66 BPM P-R Int : 166 ms QRS Dur : 140 ms QT Int : 456 ms P-R-T Axes : -16 -24 125 degrees QTcB Int : 478 ms Sinus rhythm with Premature atrial complexes Left bundle branch block Abnormal ECG When compared with ECG of 02-Aug-2013 07:27, Premature atrial complexes are now Present Referred By: Siva Lawrence Electronically Signed By: Mehran Velez
== END ==
LOC: HO.CARD 09:57
PROVIDERS: PCP Internal Medicine; Visit Provider Internal Medicine
DX: Z01.818 Encounter for other preprocedural examination (principal); Z00.00 Encounter for general adult medical examination without abnormal findings; I35.0 Nonrheumatic aortic (valve) stenosis; I10 Essential (primary) hypertension; E78.00 Pure hypercholesterolemia, unspecified; R73.02 Impaired glucose tolerance (oral); E66.3 Overweight; M51.369 Other intervertebral disc degeneration, lumbar region without mention of lumbar back pain or lower extremity pain; Z79.82 Long term (current) use of aspirin; Z79.899 Other long term (current) drug therapy; Z68.29 Body mass index [BMI] 29.0-29.9, adult
CPT/HCPCS: 93005; 96127; 99212

== ENCOUNTER → 2025-05-20 11:10 | Outpatient (BNV) | payer MEDICARE, OTHER, SELFPAY | PROVIDERS: PCP Internal Medicine; Visit Provider Internal Medicine Cardiovascular Disease | DX: I49.1 Atrial premature depolarization (principal); I44.7 Left bundle-branch block, unspecified | CPT/HCPCS: 93010 ==

== ENCOUNTER 2025-05-21 11:48 | Outpatient (AMB) | payer MEDICARE, OTHER, SELFPAY ==
[2025-05-21 12:29] VITALS: BP 132/60; PULSE 68; TEMP 36.3; O2SAT 98; BMI 29.9
--- NOTE | 2025-05-21 12:29 | MHC.OFFWIV ---
Intake Vital Signs 05/21/25 12:29 Height 5 ft 6 in Weight 185 lb BMI 29.9 BP 132/60 Blood Pressure Location Lt brachial Position Sitting Pulse 68 Pulse Source Pulse Oximeter Temp 97.4 F Temp Source Oral Pulse Oximetry (%) 98 Oxygen Delivery Method Room Air Intake Visit Reasons: EP-lip cut from a fall Intake Note: pt presents with wide open wound to right lip/vermilion border Patient Tobacco Use Status: Former Tobacco user Allergies amoxicillin (AMOXICILLIN) Allergy (Unknown, Verified 05/21/25 12:36) SEVERE ITCHING Do you need a note to return to daycare/school/sports/work: No HPI HPI Comments History of Present Illness Details History of Present Illness - The patient is an 85-year-old male presenting with a facial injury sustained from a fall. - Approximately one hour before the visit, the patient fell against a railing while handling pool covers, resulting in a lip laceration and oral bruising. - The patient reports no significant pain in the jaw or neck. - Cataract surgery is scheduled for the upcoming Monday. - He denies syncope, GUERRERO, dizziness, CP, SOB, visual changes or blurry vision. - He has no pain in the teeth. - He is on ASA daily. Physical Exam General: Cooperative, healthy appearing, comfortable, no acute distress and well developed Orientation: Patient oriented x3 Limitations: No limitations Head: Normal to inspection Face and sinus: Swelling and open laceration to the right lower lip with active bleeding and skin tear. FROM of the jaw. No facial bone tenderness noted. Neck: Normal visual inspection and Yes full ROM Respiratory: Normal respiratory effort and able to speak in complete sentences. Clear to auscultation bilaterally Cardiovascular: Regular rate and rhythm. Normal S1 and S2 Skin: Large 4cm diagonal deep laceration noted to the lower lip on the left through the Vermilion border on the lower lip. Active bleeding noted. Dark dried blood inside the inner lip. Neuro: Patient oriented x3 Patient was informed and verbally consented to the use of an ambient scribe for clinic note documentation during this visit. [facility] Medical History Obesity (BMI 30.0-34.9) Exertional chest pain Chest pain Diverticulosis Cataract Inguinal hernia Otitis externa Rt flank pain Hematoma and contusion Bicipital tendinitis of right shoulder Painful arc syndrome of right shoulder Left bundle branch block Aortic stenosis Cataracts, bilateral Shingles Erectile dysfunction Left renal stone Osteoarthritis Impaired glucose tolerance Chronic constipation Hyperlipidemia Hypertension Surgical History S/P cardiac cath History of arthroplasty of left knee History of total right knee replacement History of left inguinal hernia repair Social History Housing: House Alcohol intake: current Alcohol intake frequency: 0-2 drinks per day Comment: 2 shots and a martini Patient Tobacco Use Status: Former Tobacco user Tobacco use type: Cigarette Years Smoked: quit 22 years old e-Cigarette/Vaping Use: Never Used Second Hand Smoke Exposure: Yes service: Yes ([employer]) Current occupational status: retired Cognitive needs: No Hearing needs: No Vision needs: Yes Review of Systems Const All systems reviewed & are unremarkable except as noted in HPI and below Physical Exam Vital Signs: Last Vital Signs Temp 97.4 F 05/21/25 12:29 Pulse 68 05/21/25 12:29 BP 132/60 05/21/25 12:29 Pulse Ox 98 05/21/25 12:29 Oxygen Delivery Method Room Air 05/21/25 12:29 BMI result Body Mass Index 29.9 Assessment & Plan Assessment & Plan (1) Lip laceration: Code(s): S01.511A - Laceration without foreign body of lip, initial encounter Qualifiers: Encounter type: initial encounter Qualified Code(s): S01.511A - Laceration without foreign body of lip, initial encounter Plan: Most likely a deep lip laceration through the Vermilion border plan - The patient is advised to proceed to the emergency room for suturing by a plastic surgeon due to the complexity of the laceration. - The emergency room will be notified in advance to minimize waiting time and ensure prompt specialist intervention. - pt will drive himself Coding Level of Care Code Est Pt Level 3 (33458) Diagnoses Lip laceration, initial encounter S01.511A Encounter type: initial encounter
--- OUTSIDE RECORDS SUMMARY | 2025-05-21 15:00 | XMS_ITS | Data Portability ---
Author Organization [facility] Address [address] [place] [address] Assessment Encounter Date Assessment Date Assessment LastModified by Organization Details LastModified Time 09/12/2023 09/12/2023 Patient was measured for shoes 8.5 4E (wide) Suggested new shoes and visiting [id number] Nails are thick and dystrophic, suggest topical medication for infection [id number] Not available 09/12/2023 12:48:38 10/10/2023 10/10/2023 Patient was measured for shoes 8.5 4E (wide) last visit. He has since purchase new wider shoes Nails are thick and dystrophic, suggest topical medication for infection, does not wish to treat at this time. [id number] Not available 10/10/2023 09:30:15 Plan of Treatment Reminders Order Date Submit Date Provider Last Modified By Organization Details Last Modified Time Details Appointments None recorded. Lab None recorded. Referral None recorded. Procedures None recorded. Surgeries None recorded. Imaging XR, foot, 3 or more view 2023 024 [email or web address] [id number] [facility], [address] [place], [address], 12:48:39 Medication Orders Nail Fungus Compound: Itraconazo le, Ibuprofen, DMSO Nail Solution 2023 024 [facility], [address] [place] [address], [place], [address], 09:22:04 Patient TargetsNo targets recorded. Patient InstructionsNo [...] more view No observ ation record ed. [email or web address] [facility] [address] [place], [address], 09/12/2023 12:48:02 Result Notes None recorded. Problems Name Problem SNOMED Code Status Onset Date Resolution Date Notes Provider Name and Address Organization Details Recorded Time Onychomycos is of toenails 199176728 Active 2023 JEANETTE TENORIO DPM [address] [place] [address], [place], [address], [facility] 4 09:03:05 Bursitis of right foot 8826612562194 9108 Active 2023 JEANETTE TENORIO DPM [address] [place] [address], [place] Choud[place], [address], [facility] 4 09:25:46 Problem Notes None recorded. Procedures Surgical History Date Name Laterality Status Provider Name and Address Organization Details Recorded Time 4 G0127 Dystrophic Nail Trimming completed JEANETTE TENORIO DPM [address] [place] [address], [phone], [facility] 10/10/2023 09:17:03 4 Trigger Point Injection: single or multiple completed JEANETTE TENORIO DPM [address] [place] [address], [phone], [facility] 09/12/2023 09:25:18 Imaging Results None recorded. Procedure Notes None recorded. Medical Equipment None Reported. Allergies Allergen ID Allergen Name Allergen Category Reaction Reaction Severity Criticality Documentation Date Start Date Code Code System Note Provider Name and Address Organization Details Recorded Time 766939 amoxicill in medicatio n Not available Not available Not available 09/12/2023 723 RxNorm Latoyakeyur Gallardo [facility] 08:40:13 Medications Name Sig Start Date [...] Updated DateTime 09/12/2023 167.64 cm 29.1 kg/m2 63367.63 g Latoyakeyur Gallardo [facility] 09/12/2023 08:39:44 Date Recorded Body height Provider Name an d Address Organization Details Last Updated DateTime 10/10/2023 167.64 cm [facility] 12/2023 08:05:50 Social History None recorded. Functional Status None recorded. Mental Status None recorded. Family History Nothing Reported. Medical History No medical history recorded. Past Encounters Encounter ID Performer Location Encounter Start Date Encounter Closed Date Diagnosis/Indication Diagnosis SNOMED-CT Code Diagnosis ICD10 Code Diagnosis IMO Codes Diagnosis Note [id number] JEANETTE TENORIO DPM [place] [address] [place] [address] 09/12/2023 08:11:08 09/12/2023 09:21:56 Onychomycosis of toenails 793010183 B35.1 The patient was educated about nail [...] the softest. Bursitis o f right foot 0106865978 6753938 M77.51 right fifth digit bursitis. Secondary to [...] spaces. hammertoes noted to right 1-5 toes [id number] CORNELL GOMEZ[facility] [address] [place] [address] 10/10/2023 07:59:37 10/10/2023 08:13:59 Onychomycosis of toenails 376606313 B35.1 The patient was educated about nail [...] this time Bursitis o f right foot 7101040298 7936881 M77.51 ImprovedCo ntniue to wear larger shoes. Health Concerns Section Related Observation LastModified by Organization Detai ls LastModified Time None Recorded Concern Status LastModified by Organization Details LastModified Time None Recorded Advance Directives Directive None Recorded Payers Insurance Date Sequence Insurance Name Policy Number Policy Heard Covered Member ID Heard Member ID Guarantor Name 10/07/2023 1 [place] [id number] Jayant Griffiths [id number] Jayant Griffiths 10/07/2023 2 [facility] - PLAN 1 (MEDICARE SUPPLEMENT) [id number] Jayant Griffiths [id number] Jayant Griffiths Notes Date Note Type Note Provider Name and Address Organization Details Recorded Time 09/12/2023 text/html Patient likes to walk an hour a day, and is normally wearing sketchers. Now when he goes on walks he has right fifth digit pain. He does not know how to treat it at home. Has a track fitter at home in [place]. He comes to [place] in the winter. JEANETTE TENORIO DPM [facility] [place], [address], [facility] 09/12/2023 12:51:23 10/10/2023 text/html Patient likes to walk an hour a day, and is normally wearing sketchers. Now when he goes on walks he has right fifth digit pain. He does not know how to treat it at home. Has a track fitter at home in [place]. He comes to [place] in the winter. pt is here for a [facility] an follow o for right foot pain Patient likes to walk an hour a day, and is normally wearing sketchers. Now when he goes on walks he has right fifth digit pain. He does not know how to treat it at home. Has a track fitter at home in [place]. He comes to [place] in the winter. JEANETTE TENORIO DPM [address] [place], [address], [facility] 10/10/2023 09:30:54
--- OUTSIDE RECORDS SUMMARY | 2025-05-21 15:00 | XMS_ITS | Patient Health Record ---
Author Organization [facility] Address [address] [place] [address] Care Team Providers Care Barrel Loader And Cleaner Name Role Phone Siva Lawrence MD Primary Care Provider Dung Newsome [phone] Reason For Referral No Information Medications Medication [...] Problem Screening for malignant neoplasm of colon (054085237) Encounter for screening for malignant neoplasm of colon (Z12.11) Active confirmed Problem Preprocedural examination (108497621487622) Preprocedural examination (Z01.818) Active confirmed Problem Long-term current use of aspirin (416341277378643) Aspirin long-term use (Z79.82) Active confirmed Plan Of Treatment Future Test Test Name Order Date COLONOSCOPY 05/29/2015 Insurance Providers Payer Name Payer Address Payer Phone Subscriber Number Group Number Insured Name Patient Relationship to Insured Coverage Start Date Coverage End Date MEDICARE OF ALESSANDRA SARAH [address] [place] [id number] ARUNA ALATORRE Self - patient is the insured [facility] [address] [place] [address] [id number] ARUNA ALATORRE Self - patient is the insured Medical (General) History Medical History History ICD Code HTN colonoscopy 01-30-2004--neg e xcept for diverticulosis and internal hemorrhoids Hyperlipidemia Denies [place],DM,CVA,Lung disease,renal dise ase Surgical History Surgery Date(Month/Year) appendectomy
== END 2025-05-21 13:31 | disposition home or self-care (01) ==
PROVIDERS: PCP Internal Medicine; Visit Provider Physician Assistant Medical
DX: S01.511A Laceration without foreign body of lip, initial encounter (principal)

== ENCOUNTER → 2025-05-21 11:48 | Outpatient (BNVA) | payer MEDICARE, OTHER, SELFPAY | PROVIDERS: PCP Internal Medicine; Visit Provider Physician Assistant Medical | DX: S01.511A Laceration without foreign body of lip, initial encounter (principal); W19.XXXA Unspecified fall, initial encounter; Y93.9 Activity, unspecified; Y92.9 Unspecified place or not applicable; Y99.9 Unspecified external cause status | CPT/HCPCS: 99212 ==

== ENCOUNTER 2025-05-29 08:19 | Outpatient (AMB) | payer MEDICARE, OTHER, SELFPAY ==
--- NOTE | 2025-05-29 08:37 | MHC.PC.OV ---
Vital Signs 05/29/25 08:38 Height 5 ft 6 in Weight 181 lb 4 oz BMI 29.3 BP 112/62 Blood Pressure Location Lt brachial Position Sitting Pulse 73 Pulse Source Pulse Oximeter Temp 97.3 F Temp Source Temporal Artery Scan Pulse Oximetry (%) 96 Oxygen Delivery Method Room Air Intake Visit Reasons: [facility] 05/21 Intake Note: Patient is here to follow-up after a visit the emergency department at [facility] on 05/21/25 Trailer Assembler Required: No Business Solutions Analyst: Not Required per policy Accompanied by: Self / Same As Patient Allergies amoxicillin (AMOXICILLIN) Allergy (Unknown, Verified 05/29/25 08:38) SEVERE ITCHING Medication List - Last Reconciled 05/29/25 by Keisha Pineda MD aspirin (Adult Low Dose Aspirin) 81 mg PO DAILY atorvastatin 40 mg PO DAILY 90 days cyanocobalamin (vitamin B-12) 1,000 mcg PO DAILY lisinopril 40 mg PO DAILY nifedipine ER 90 mg PO DAILY 90 days sildenafil (Viagra) 50 mg PO DAILY PRN Tobacco use date assessed: 05/29/25 Fall risk assessment: 2 + Falls in past year Last assessed Fall Risk: 05/29/25 Dental Screening Dental Screen Date: 05/06/25 HPI HPI Comments History of Present Illness Details The patient is an 85-year-old male presenting for follow-up after an accident resulting in facial lacerations. He was seen at [facility] ED 05/23 for plastic surgery. The lacerations were treated with sutures that are expected to dissolve on their own, and there is no follow-up scheduled with plastic surgery. The patient reports no pain associated with the injury, although there is noticeable bruising on the face, which is expected to resolve over time. The patient denies experiencing fever, chills, headaches, chest pain, or shortness of breath, indicating no systemic complications from the injury. A tetanus vaccination was administered as part of the initial treatment following the accident. The patient is currently on a medication regimen that includes aspirin, atorvastatin, vitamin B12, lisinopril, nifedipine, and sildenafil, with no reported issues of adherence. [facility] Medical History (Updated 05/29/25 @ 08:58 by Keisha Pineda MD) Obesity (BMI 30.0-34.9) Exertional chest pain Chest pain Diverticulosis Cataract Inguinal hernia Otitis externa Rt flank pain Hematoma and contusion Bicipital tendinitis of right shoulder Painful arc syndrome of right shoulder Left bundle branch block Aortic stenosis Cataracts, bilateral Shingles Erectile dysfunction Left renal stone Osteoarthritis Impaired glucose tolerance Chronic constipation Hyperlipidemia Hypertension Surgical History (Updated 05/29/25 @ 08:41 by GERMAN Pedro) History of right cataract surgery S/P cardiac cath History of arthroplasty of left knee History of total right knee replacement History of left inguinal hernia repair Social History Housing: House Alcohol intake: current Alcohol intake frequency: 0-2 drinks per day Comment: 2 shots and a martini Patient Tobacco Use Status: Former Tobacco user Tobacco use type: Cigarette Years Smoked: quit 22 years old e-Cigarette/Vaping Use: Never Used Second Hand Smoke Exposure: Yes service: Yes ([employer]) Current occupational status: retired Cognitive needs: No Hearing needs: No Vision needs: Yes Questionnaire Thrive Questionnaire Date Thrive assessed: 02/06/25 I am a: Patient What is your living situation today?: I have a steady place to live Within the past 12 months, did the food you bought not last and you didn't have the money to get more?: Never true Within the past 12 months, did you worry whether your food would run out before you got money to buy more?: Never true Do you have trouble paying for medicines?: No Do you have trouble getting transportation to medical appointments?: No Do you have trouble paying your heating and electricity bill?: No Do you have trouble taking care of your child, family member or friend?: No Do you have trouble with day-to-day activities such as bathing, preparing meals, shopping, managing finances, etc.?: No Are you currently unemployed and looking for a job?: No Are you interested in more education?: I choose not to answer this question Please select the resources that you would like help with: None Currently or been in a relationship where the following occur: No concerns reported THRIVE Score: 0 LANE-[address] L[address]-7 Date LANE - 7 assessed: 11/20/24 Source: Developed by Drs. Dung Joel, Salina Diaz, Richard Bowden and colleagues, with an educational prince from [employer]. Review of Systems Const Details: Positives besides what was mentioned in HPI are in BOLD Constitutional: No Weight Change, No Fever, No Chills, No Night Sweats, No Fatigue, No Malaise ENT/Mouth: No Hearing Changes, No Ear Pain, No Nasal Congestion, No Sinus Pain, No Hoarseness, No sore throat, No Rhinorrhea, No Swallowing Difficulty Eyes: No Eye Pain, No Swelling, No Redness, No Foreign Body, No Discharge, No Vision Changes Cardiovascular: No Chest Pain, No SOB, No PND, No Dyspnea on Exertion, No Orthopnea, No Claudication, No Edema, No Palpitations Respiratory: No Cough, No Sputum, No Wheezing, No Smoke Exposure, No Dyspnea Gastrointestinal: No Nausea, No Vomiting, No Diarrhea, No Constipation, No Pain, No Heartburn, No Anorexia, No Dysphagia, No Hematochezia, No Melena, No Flatulence, No Jaundice Genitourinary: No Dysmenorrhea, No DUB, No Dyspareunia, No Dysuria, No Urinary Frequency, No Hematuria, No Urinary Incontinence, No Urgency, No Flank Pain, No Urinary Flow Changes, No Hesitancy Musculoskeletal: No Arthralgias, No Myalgias, No Joint Swelling, No Joint Stiffness, No Back Pain, No Neck Pain, No Injury History Skin: No Skin Lesions, No Pruritis, No Hair Changes, No Breast/Skin Changes, No Nipple Discharge Neuro: No Weakness, No Numbness, No Paresthesias, No Loss of Consciousness, No Syncope, No Dizziness, No Headache, No Coordination Changes, No Recent Falls Psych: No Anxiety/Panic, No Depression, No Insomnia, No Personality Changes, No Delusions, No Rumination, No SI/HI/AH/VH, No Social Issues, No Memory Changes, No Violence/Abuse Hx., No Eating Concerns Heme/Lymph: No Bruising, No Bleeding, No Transfusions History, No Lymphadenopathy Endocrine: No Polyuria, No Polydipsia, No Temperature Intolerance Physical exam (Primary Care) Vital Signs: Last Vital Signs Temp 97.3 F 05/29/25 08:38 Pulse 73 05/29/25 08:38 BP 112/62 05/29/25 08:38 Pulse Ox 96 05/29/25 08:38 Oxygen Delivery Method Room Air 05/29/25 08:38 BMI result Body Mass Index 29.3 Tobacco/Smoking Status: Tobacco use Status Tobacco use date assessed 05/29/25 05/29/25 08:43 Patient Tobacco Use Status Former Tobacco user 05/29/25 08:43 Tobacco use type Cigarette 05/29/25 08:43 e-Cigarette/Vaping Use Never Used 05/29/25 08:43 Thrive Assessment: Date of Thrive Assessment Date Thrive assessed 02/06/25 05/29/25 08:43 Currently or been in a relationship where the following occur: No concerns reported Const Other: Pertinent findings are in BOLD GENERAL APPEARANCE NAD, activity normal for age, well developed/ well nourished, no cyanosis, pallor, or diaphoresis. EYES lids/conjunctiva normal. EARS/NOSE/THROAT Mucous membranes moist, nares normal, lips/teeth normal uvula midline without oral pharyngeal erythema, exudate or swelling TMs normal bilaterally. No lymphangitis/lymphedema. HEAD/NECK normocephalic atraumatic, no facial trauma, neck is supple. RESPIRATORY respiratory effort normal, speaks in full sentences, no tripod position, no accessory muscle use. Lungs clear to auscultation without rhonchi, wheezes, rales CARDIAC Regular rate and rhythm, no edema. ABDOMINAL Soft, ND/NT. No evidence of fluid wave. No pulsatile masses on exam, rebound tenderness, Jimenez sign or pain over Mcburney's point. MUSCLES/EXTREMITIES No abnormal range of motion, no swelling. SKIN Scab present on lower lip, bruising present on the mandibular area. NEUROLOGICAL Speech is clear and appropriate. Normal level of consciousness. Gait and coordination are normal. 5/5 strength in all extremities. PSYCH Normal mood and affect. Judgement/competence is appropriate Coding Level of Care Code Est Pt Level 3 (98019) Diagnoses Laceration of lower lip, initial encounter S01.511A Encounter type: initial encounter Time Spent (min) 20 Assessment & Plan Assessment & Plan (1) Laceration of lower lip: Code(s): S01.511A - Laceration without foreign body of lip, initial encounter Category: Medical Qualifiers: Encounter type: initial encounter Qualified Code(s): S01.511A - Laceration without foreign body of lip, initial encounter Plan: Patient had a recent fall which caused a laceration to the lower lip. HE was seen by Urgent care who referred the patient to [facility] ED for suturing by plastic surgery. Patient denies any pain during his visit today. Laceration area healing well. Scab present on the lower lip. Monitor healing of facial lacerations; sutures expected to dissolve on their own. Bruising expected to improve over time without intervention. Plan During the visit, we discussed the healing process of the facial lacerations, noting that the sutures are expected to dissolve on their own and the bruising should improve over time. I advised the patient to maintain follow-up appointments with his primary care physician and dianetic counselor to ensure comprehensive care.
[2025-05-29 08:38] VITALS: BP 112/62; PULSE 73; TEMP 36.3; O2SAT 96; BMI 29.3
== END 2025-05-29 09:00 | disposition home or self-care (01) ==
LOC: HO.HMCH 08:20
PROVIDERS: PCP Internal Medicine; Visit Provider Internal Medicine
DX: S01.511A Laceration without foreign body of lip, initial encounter (principal)

== ENCOUNTER → 2025-05-29 08:19 | Outpatient (BNVA) | payer MEDICARE, OTHER, SELFPAY | PROVIDERS: PCP Internal Medicine; Visit Provider Internal Medicine | DX: S01.511A Laceration without foreign body of lip, initial encounter (principal); W19.XXXA Unspecified fall, initial encounter; Y93.9 Activity, unspecified; Y92.9 Unspecified place or not applicable; Y99.9 Unspecified external cause status | CPT/HCPCS: 99212 ==

== ENCOUNTER 2025-06-05 11:19 | Outpatient (AMB) | payer MEDICARE, OTHER, SELFPAY ==
--- NOTE | 2025-06-05 11:21 | A.OFFVIS_ITS ---
Vital Signs 06/05/25 11:22 Height 5 ft 6 in Weight 182 lb 15.739 oz BMI 29.5 BP 122/70 Blood Pressure Location Lt brachial Position Sitting Pulse 64 Intake Visit Reasons: 1 year fu w ekg Intake Note: 1 year follow-up feeling good Community Organization Director Required: No Allergies amoxicillin (AMOXICILLIN) Allergy (Unknown, Verified 05/29/25 08:38) SEVERE ITCHING Medication List - Last Reconciled 06/05/25 by Ayaan Romero MD aspirin (Adult Low Dose Aspirin) 81 mg PO DAILY atorvastatin 40 mg PO DAILY 90 days cyanocobalamin (vitamin B-12) 1,000 mcg PO DAILY lisinopril 40 mg PO DAILY nifedipine ER 90 mg PO DAILY 90 days sildenafil (Viagra) 50 mg PO DAILY PRN HPI Comments Details: Jayant comes for follow-up. He has no new cardiac symptoms. Recent ec hocardiogram shows low-flow moderate aortic stenosis. Denied any exertional chest pain or shortness of breath. 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 He is currently taking all his medications. He has not taken atorvastatin recently due to recall. He is going to go to the pharmacy to recheck on that. Denies any lightheadedness, syncope. No heart failure symptoms. [facility] Medical History Obesity (BMI 30.0-34.9) Exertional chest pain Chest pain Diverticulosis Cataract Inguinal hernia Otitis externa Rt flank pain Hematoma and contusion Bicipital tendinitis of right shoulder Painful arc syndrome of right shoulder Left bundle branch block Aortic stenosis Cataracts, bilateral Shingles Erectile dysfunction Left renal stone Osteoarthritis Impaired glucose tolerance Chronic constipation Hyperlipidemia Hypertension Surgical History History of right cataract surgery S/P cardiac cath History of arthroplasty of left knee History of total right knee replacement History of left inguinal hernia repair Social History Housing: House Alcohol intake: current Alcohol intake frequency: 0-2 drinks per day Comment: 2 shots and a martini Patient Tobacco Use Status: Former Tobacco user Tobacco use type: Cigarette Years Smoked: quit 22 years old e-Cigarette/Vaping Use: Never Used Second Hand Smoke Exposure: Yes service: Yes ([employer]) Current occupational status: retired Cognitive needs: No Hearing needs: No Vision needs: Yes Review of Systems Const Denies chills, Denies fatigue, Denies fever(s), Denies frequent falls, Denies weakness, Denies weight gain and Denies weight loss ENT Denies dizziness Card Denies chest pain, Denies leg edema, Denies lightheadedness, Denies palpitations, Denies dyspnea, Denies dyspnea on exertion, Denies orthopnea and Denies other (loss of consciousness) Resp Denies cough, Denies dyspnea and Denies dyspnea on exertion GI Denies hematochezia and Denies change in stool character Musc Denies abnormal gait, Denies muscle weakness, Denies numbness, Denies radiating pain into limb and Denies tingling Neuro Denies abnormal gait, Denies dizziness, Denies frequent falls, Denies numbness, Denies tingling and Denies weakness Endo Denies fatigue and Denies palpitations Physical Exam Vital Signs: Last Vital Signs Pulse 64 06/05/25 11:22 BP 122/70 06/05/25 11:22 BMI result Body Mass Index 29.5 Const General: cooperative, comfortable, alert, awake and well groomed Nutritional Appearance: overweight Orientation/consciousness: patient oriented x3 Limitations: no limitations Neck Neck: Yes trachea midline, Yes supple and Yes no JVD Resp Effort & Inspection: normal respiratory effort Auscultation: clear to auscultation bilaterally Cardio Jugular venous distension: no JVD Palpation: normal PMI Rate: regular rate Rhythm: abnormal rhythm with ectopic beats Heart sounds: S1 normal heart sound present, S2 normal heart sound present, no click, no gallops and Murmur heart sound present systolic mid, decrescendo, crescendo and soft Peripheral pulses: Peripheral pulses 2+ throughout GI Auscultation: normal bowel sounds Neuro General: patient oriented x3 and no focal motor deficits Extrem General: Yes no clubbing, cyanosis or edema Psych Appearance: grossly normal Assessment & Plan Assessment & Plan (1) Aortic stenosis: Comment: April 2024 1.6 cm squared, April 2025 1.2 cm Code(s): I35.0 - Nonrheumatic aortic (valve) stenosis Category: Medical Plan: Aortic stenosis which is moderate paradoxical low-flow, clinically appears to be moderate. No new cardiac symptoms at this point time. Continue aggressive medical therapy. Continue low-dose aspirin therapy. Continue high-intensity statin therapy with target goal LDL less than 100 mg/dL. Continue aggressive blood pressure control. Follow-up echocardiogram in 1 year's time. No indication for valve replacement (2) Hypertension: Comment: Echo 55-60% grade 1 diastolic dysfunction mild May 2019 cardiac cath done 12/2024 no significant coronary artery disease Code(s): I10 - Essential (primary) hypertension Category: Medical Qualifiers: Hypertension type: essential hypertension Qualified Code(s): I10 - Essential (primary) hypertension Plan: Hypertension which is currently well optimized on current therapy with nifedipine and lisinopril. Continue the same. Importance of good blood pressure control was discussed. Target goal blood pressure less than 130/84. Low-salt diet was discussed encouraged to maintain activity level as tolerated. (3) Left bundle branch block: Code(s): I44.7 - Left bundle-branch block, unspecified Category: Medical Plan: Left bundle-branch block which is stable. No interventions required. Continue clinical follow-up. Follow-up echocardiogram and EKGs in 1 year's time (4) Preop cardiovascular exam: Code(s): Z01.810 - Encounter for preprocedural cardiovascular examination Plan: Preop exam for cataract surgery which is considered low risk surgery.. He is currently optimized to undergo cataract surgery with low risk for perioperative cardiovascular morbidity mortality. Will follow up in the clinic in 1 year's time, sooner PRN. Thank you for allowing me to partake in his care Orders: Orders CA echo transthoracic complete 1 Year I35.0 - Nonrheumatic aortic (valve) stenosis Coding Level of Care Code Est Pt Level 4 (71156) Complex EM visit Add On G2211 Diagnoses Aortic stenosis I35.0 Essential hypertension I10 Hypertension type: essential hypertension Left bundle branch block I44.7 Preop cardiovascular exam Z01.810
[2025-06-05 11:22] VITALS: BP 122/70; PULSE 64; BMI 29.5
--- OUTSIDE RECORDS SUMMARY | 2025-06-05 14:12 | XMS_ITS | Patient Health Record ---
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 Name Role Phone Siva Lawrence MD Primary Care Provider Dung Newsome [phone] Reason For Referral No Information Medications Medication [...] Problem Screening for malignant neoplasm of colon (105162117) Encounter for screening for malignant neoplasm of colon (Z12.11) Active confirmed Problem Preprocedural examination (511677484584913) Preprocedural examination (Z01.818) Active confirmed Problem Long-term current use of aspirin (745748159834125) Aspirin long-term use (Z79.82) Active confirmed Plan Of Treatment Future Test Test Name Order Date COLONOSCOPY 05/29/2015 Insurance Providers Payer Name Payer Address Payer Phone Subscriber Number Group Number Insured Name Patient Relationship to Insured Coverage Start Date Coverage End Date MEDICARE OF [employer] [address] [place] [id number] ARUNA ALATORRE Self - patient is the insured [facility] [address] [facility] [place] [address] [phone] [id number] ARUNA ALATORRE Self - patient is the insured Medical (General) History Medical History History ICD Code HTN colonoscopy 01-30-2004--neg e xcept for diverticulosis and internal hemorrhoids Hyperlipidemia Denies KS,DM,CVA,Lung disease,renal dise ase Surgical History Surgery Date(Month/Year) appendectomy
--- OUTSIDE RECORDS SUMMARY | 2025-06-05 14:12 | XMS_ITS ---
[...] spaces. hammertoes noted to right 1-5 toes [id number] JEANETTE TENORIO DPM [facility] [address] [place] [address] 10/10/2023 07:59:37 10/10/2023 08:13:59 Onychomycosis of toenails [id number] B35.1 The patient was educated about nail [...] this time Bursitis o f right foot [id number] M77.51 ImprovedCo ntniue to wear larger shoes. Health Concerns Section Related Observation LastModified by Organization Detai ls LastModified Time None Recorded Concern Status LastModified by Organization Details LastModified Time None Recorded Advance Directives Directive None Recorded Payers Insurance Date Sequence Insurance Name Policy Number Policy Heard Covered Member ID Heard Member ID Guarantor Name 10/07/2023 1 [place] [id number] Jayant Griffiths [id number] Jayant Griffiths 10/07/2023 2 [facility] - PLAN 1 (MEDICARE SUPPLEMENT) [id number] Jayant Griffiths [id number] Jayant Griffiths Notes Date Note Type Note Provider Name and Address Organization Details Recorded Time 09/12/2023 text/html Patient likes to walk an hour a day, and is normally wearing sketchers. Now when he goes on walks he has right fifth digit pain. He does not know how to treat it at home. Has a hosiery bagger at home in [place]. He comes to [place] in the winter. JEANETTE TENORIO DPM [address] [place] [address], [phone], [facility] 09/12/2023 12:51:23 10/10/2023 text/html Patient likes to walk an hour a day, and is normally wearing sketchers. Now when he goes on walks he has right fifth digit pain. He does not know how to treat it at home. Has a hosiery bagger at home in [place]. He comes to [place] in the winter. pt is here for a c an follow o for right foot pain Patient likes to walk an hour a day, and is normally wearing sketchers. Now when he goes on walks he has right fifth digit pain. He does not know how to treat it at home. Has a hosiery bagger at home in [place]. He comes to [place] in the winter. JEANETTE TENORIO DPM [facility] [place], [phone], [facility] 10/10/2023 09:30:54
== END 2025-06-05 11:36 | disposition home or self-care (01) ==
LOC: HO.HCS 11:20
PROVIDERS: PCP Internal Medicine; Visit Provider Internal Medicine Cardiovascular Disease
DX: I35.0 Nonrheumatic aortic (valve) stenosis (principal); I10 Essential (primary) hypertension; I44.7 Left bundle-branch block, unspecified; Z01.810 Encounter for preprocedural cardiovascular examination
CPT/HCPCS: 99214; G2211

== ENCOUNTER → 2025-06-05 11:19 | Outpatient (BNVA) | payer MEDICARE, OTHER, SELFPAY | PROVIDERS: PCP Internal Medicine; Visit Provider Internal Medicine Cardiovascular Disease | DX: Z01.810 Encounter for preprocedural cardiovascular examination (principal); I35.0 Nonrheumatic aortic (valve) stenosis; I44.7 Left bundle-branch block, unspecified; I10 Essential (primary) hypertension | CPT/HCPCS: 99212 ==